=== PATIENT | female | born 1950 | race Caucasian/White ===

== ENCOUNTER 2024-04-16 14:43 | Inpatient (IN) | payer OTHER, SELFPAY ==
[2024-04-16] VITALS (64 sets, daily range): BP systolic 128–210; BP diastolic 82–158
--- NOTE | 2024-04-16 13:44 | CON.NEURO ---
Addendum entered and electronically signed by Alex Marley MD 04/16/24 17:42:
~3:20 pm after TNK patient developed facial swelling. unclear if this was due to the Labetalol or TNK.
was given solumedrol, benadryl, and pepcid
Original Note:
Neuro Assessment/Plan
Assessment
Acute stroke, suspecting left MCA territory
patient treated with TNK
Plan
Plan:
Admit to MICU for 24 hours of frequent neurochecks.�
neurochecks q1, Frequent vital signs Q15min x 2hrs, then Q30min x 6hrs, then Q1H x 16hrs until stable from the start of TNK.�
�tele, accuchecks/ISS. Repeat Head CT in 24 hours
Blood pressure goals: <180/105 and MAP 80-100� in the acute period.� If BP elevated for 2 readings, preferred agents include IV labetalol or nicardipine.� Vasopressors as necessary to maintain MAP and CPP.�
Glucose goals: Maintain euglycemia using sliding scale insulin. If glucose >180 for two consecutive readings, please use MICU insulin protocol.�
Temperature goals: maintain normothermia�
Diagnostic tests: MRI brain without contrast, ECHO with bubble.�
Consultation
Order
Date of Consultation: 04/16/24
Requesting Provider: Kelvin Good
Reason for Consult: Stroke alert
Subjective/Objective
Subjective Data
Date of Service: April 16, 2024
LKN 12:50 pm
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 She was at work, sudden onset right facial droop, aphasia. She tried to get in her car and drive home. EMS saw that she was not her usual self; they
brought her to the ED
CVA Assessment
Onset of Stroke Symptoms
Onset of symptoms known: Yes
Date of onset of symptoms: 04/16/24
Time of onset of symptoms: 12:50
NIH Stroke Score
Level of Consciousness: 0 - Alert
LOC Questions: 2-Neither correct
LOC Commands: 0-Performs both correctly
Best Horizontal Gaze: 0-Normal
Visual Rogel: 0=Normal, no visual loss
Facial Palsy: 1=Minor paralysis
Motor - Right Arm: 1=Drift < 10 seconds
Motor - Left Arm: 0=No drift 10 seconds
Motor - Right Le-Drift < 5 seconds
Motor - Left Le-No drift 5 seconds
Limb Ataxia: 0-Absent
Sensation: 0-Normal
Best Language: 2-Severe aphasia
Dysarthria: 0-Normal
Extinction and Inattention: 0-No abnormality
Total Score:: 7
Physical Exam
-
severe global aphasia, empty speech, following simple commands only
trace right sided weakness,
right nasolabial flattening
--- NOTE | 2024-04-16 13:49 | ED.CVA ---
History of Present Illness
General
Chief Complaint: CVA/TIA Symptoms
Source: patient and ambulance crew
Exam Limitations: none
Time Seen by Provider: 04/16/24 13:27
Nursing documentation reviewed up to this point in time: agreed with
Onset of Stroke Symptoms
Onset of symptoms known: Yes
Date of onset of symptoms: 04/16/24
Time of onset of symptoms: 12:45
History of Present Illness
History of Present Illness:
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
hemorrhage, blood pressure is elevated, I evaluated her her symptoms have improved but are still present looks to have a mixed aphasia facial palsy right sided weakness shared decision making with myself and on-call neurology at bedside believe she
would be a candidate for lytic therapy
Phy Exam
Physical Exam
Physical Exam:
Physical Exam
General: no apparent distress, not acutely ill
Neck: No tongue bite
Heart: s1/s2 regular rate and rhythm, no murmur. equal radial pulses.
Lungs: no acute respiratory distress. clear bilaterally
Neuro: Expressive aphasia right arm and leg with droop facial palsy
Skin: no rash
Psychiatric: Anxious but cooperative
Extremities: no edema.
Course
Orders/Labs/Results
Orders:
Orders
04/16/24 13:28
Electrocardiogram (*1) Stat
Reason for Study: Other
Other Reason for Exam: neuro symptoms
CT HEAD STROKE ALERT W/o Cont Urgent
Comment:
Reason For Exam: weanss
CT HEAD/NECK ANG STROKE ALERT Urgent
Comment:
Reason For Exam: weaknes
Bedside Glucose- Treatment ONCE
Cardiac Monitoring- Treatment ONCE
EKG- Treatment ONCE
04/16/24 13:52
Complete Blood Count/With Diff Urgent
Comprehensive Metabolic Panel Urgent
PTT Urgent
Prothrombin Time Urgent
04/16/24 13:55
NEUROLOGY CONSULT Urgent
Consulting Provider: Alex Marley
Was physician already notified: Yes
Optical Dispenser Urgent
04/16/24 13:56
Tenecteplase [Tnkase] 20 mg Syringe [Syringe Non-Pump] 0 ml IV NOW
Provider explained risk/benefits to patient &/or caregiver?: Yes
Blood pressure: 185/105
04/16/24 13:59
Labetalol HCl [Trandate] 20 mg .ROUTE .STK-MED ONE
04/16/24 14:03
Labetalol HCl [Trandate] 20 mg IV NOW STA
04/16/24 14:07
Admit/Transfer Patient As Directed
Co-Sign Provider:
Level of Care: Inpatient admission
Assign to:: ICU
Physician / Group: Jamar Ibrahim
Diagnosis: CVA
Reason for Hospitalization: CVA
Expected length of stay greater than two midnights?: Yes
ELOS- Estimated Length of Stay in days: 3
I certify the patient meets the requirements for IP care: Yes
Code Status As Directed
Resuscitation Status: Full Code
04/16/24 Dinner
NPO
Reason for opting out of Watch Inspector order writing: Provider Decision
Allow oral meds: No
Allow clear liquids: No
Abnormal Lab Results
04/16/24 04/16/24
13:52 13:54
RBC 3.73 L 10^6/uL
(4.20-5.40)
Hgb 11.4 L g/dL
(12.0-16.0)
Hct 33.6 L %
(37.0-47.0)
Absolute Monos (auto) 0.7 H 10^3/uL
(0.1-0.6)
POC Glucose 112 H mg/dl
(70-99)
04/16/24 13:52
Vital Signs
Initial and Last Documented VS:
Initial Vital Signs
Pulse Resp BP Pulse Ox
106 20 185/105 97
04/16/24 13:30 04/16/24 13:30 04/16/24 13:30 04/16/24 13:30
Last Documented Vital Signs
Temp Pulse Resp BP Pulse Ox
98.0 F 78 18 179/82 94
04/16/24 14:02 04/16/24 14:14 04/16/24 14:14 04/16/24 14:14 04/16/24 14:14
MDM/Problems Addressed
Differential Diagnosis Includes:
CVA TIA seizure with Boo's paralysis intracerebral hemorrhage hypertensive urgency
MDM/Problems Addressed:
Right-sided weakness slurred
*Radiology
Radiology exam reviewed: radiology read reviewed
*Pulse Oximetry
Patient hypoxic: no
*EKG
Interpreted by ED Provider?: Yes
Interpretation: normal
Comparison EKG: no comparison EKG present
Heart Rate: 78
Rate: normal
Rhythm: sinus
Ischemia: non-specific ST changes
*Health Care Analyst Interpretation
Rate: normal
Interpretation: normal
Heart Rate: 78
Rhythm: sinus
*Critical Care Note
Total Time (30-74mins, 75-104mins- exclusive of procedures): 32
Update Note
Update Note:
CRITICAL CARE STATEMENT: A total of 32 minutes of critical care time was provided for this patient. This includes management of unstable vital signs, evaluation of the patient at bedside, reviewing the patient's pertinent medical records discussion
with EMS providers and patient's family in addition to discussion with consultants, review of old EKGs and review of pertinent medical records. This time with separate from time utilized to perform the aforementioned documented procedures
ED Attending Note
-
Portions of this chart may have been created with voice recognition software.� Occasional wrong word or��sound alike� substitutions may have occurred due to the inherent limitations of voice recognition software.
Discharge Plan
Departure
Patient Disposition: Admit
Date of Disposition: 04/16/24
Time of Disposition: 14:21
Admit to: ICU
Presentation/result/management discussed w/ accepting MD/DO: Hospitalist
Patient with high blood pressure during this ER visit?: Yes
Condition: Fair
Discharge Problem:
Acute cerebrovascular accident (CVA)
Prescriptions:
No Action
lisinopril 20 mg Tablet
20 mg PO DAILY
naproxen sodium [Aleve] 220 mg Tablet
220 mg PO BIDPRN PRN (Reason: mildpain)
Interventions
Interventions:
*Risk Screen - Suicide Last Done: 04/16/24 13:30
*General Assessment Last Done: 04/16/24 13:30
*ED COVID-19 Vaccine History Last Done: 04/16/24 13:30
ED- Pulmonary Assessment Last Done: 04/16/24 14:09
ED- Neurological Assessment Last Done: 04/16/24 13:56
ED- Cardiac Assessment Last Done: 04/16/24 14:09
ED Swallowing Screen Last Done: 04/16/24 14:09
Discharge Date and Time
Print Language: MONGOLIAN
--- NOTE | 2024-04-16 13:59 | PHANOTE ---
Addendum entered by Cindy Pope 04/16/24 15:12:
patient confused at this time, nurse found medication in purse while trying to find emergency contact information,, id meds in [place]
Original Note:
med rec note- called family provided by patient job as emergency contact number tony de los santos at [phone] but no answer
[2024-04-16 14:00] LABS: Glucose - Point of Care 112 mg/dl (70-99)
[2024-04-16] MEDS: TRANDATE 20 MG IV (14:04)
[2024-04-16] MEDS: TNKASE 4 MG IV (14:06)
[2024-04-16 14:08] LABS: % Basophils 0.7 % (0-2); % Eosinophils 1.6 % (0-6); % Immature Granulocytes 0.5 % (0-0.5); % Lymphocytes 35.4 % (20.5-51.1); % Monocytes 8.7 % (1.7-9.3); % Neutrophils 53.1 % (42.2-75.2); Absolute Basophils 0.1 10^3/uL (0-0.2); Absolute Eosinophils 0.1 10^3/uL (0-0.7); Absolute Lymphocytes 2.7 10^3/uL (1.2-3.4); Absolute Monocytes 0.7 10^3/uL (0.1-0.6); Absolute Neutrophils 4.1 10^3/uL (1.4-6.5); Hematocrit 33.6 % (37.0-47.0); Hemoglobin 11.4 g/dL (12.0-16.0); Mean Corp Hgb Conc. 33.9 g/dL (33.0-37.0); Mean Corpuscular Hgb 30.6 pg (27.0-31.0); Mean Corpuscular Volume 90.1 fL (81.0-99.0); Mean Platelet Volume 9.7 fL (7.4-10.4); Nucleated Red Blood Cells % 0 %; Platelet Count 257 10^3/uL (130-400); Red Blood Cell Count 3.73 10^6/uL (4.20-5.40); Red Cell Dist. Width 14.5 % (11.5-14.5); White Blood Cell Count 7.6 10^3/uL (4.8-10.8)
[2024-04-16 14:20] LABS: APTT 27.3 Sec (23.4-35.0); INR 0.96; PT 13.3 Sec (11.4-14.6)
[2024-04-16 14:23] LABS: ALT (SGPT) 22 U/L (0-35); AST (SGOT) 29 U/L (14-36); Albumin 3.4 g/dl (3.5-5.0); Alkaline Phosphatase 272 U/L (38-126); Blood Urea Nitrogen 16 mg/dl (7-17); Calcium 9.5 mg/dl (8.4-10.2); Carbon Dioxide 34 mmol/L (22-30); Chloride 97 mmol/L (98-107); Glucose 115 mg/dl (70-99); Potassium 2.6 mmol/L (3.5-5.1); Sodium 136 mmol/L (135-145); Total Bilirubin 0.7 mg/dl (0.2-1.3); Total Protein 5.7 g/dl (6.3-8.2); eGFR > 60.00
--- NOTE | 2024-04-16 14:32 | CON.INTV ---
Consultation
Consultation Request
Date/Time Consultation Requested: 2 PM
Date/Time Consultation Performed: 2:10PM
Medical History
-
Chief Complaint: Aphasia/right-sided weakness
History of Present Illness:
Patient is a 73-year-old female with no known past medical history who presents to [facility] with aphasia and right-sided weakness. She was brought in by EMS within 30 minutes of symptoms onset by coworker alert. She underwent CT scan
urgently which showed no bleed or hemorrhage. CTA showed no high-grade stenosis, but did show in the left lower neck at the junction with the upper chest some mixed air and soft tissue density�almost certainly representing esophageal diverticulum.
Blood pressure remained elevated-systolics in 190s. Patient was started on TNK in hospital. In conversation, patient is teary and scared. She states that she does not feel any weakness on either side but responded to many questions with 'I do not
know'.
Patient is a poor historian, unclear if due to anxiety of being in the hospital versus symptoms from potential stroke. She is having some word finding difficulty. She states she does not remember the last time she went to a doctor. In her purse,
lisinopril and Aleve were found, but she states she does not take any medications.
Past Medical History
Past Medical History: Other (Unknown)
Past Surgical History: Other (Unknown)
Social History
Tobacco: Non-smoker
Alcohol: None
Living: Alone
Employment: Employed
Family History
Family History: Other (Unable to answer questions)
Allergies / Home Medications
Allergies
Allergy/AdvReac Type Severity Reaction Status Date / Time
No Known Allergies Allergy Unverified 04/16/24 13:56
Home Medications
�Medication �Instructions �Recorded �Confirmed �Last Taken �Type
lisinopril 20 mg tablet 20 mg PO DAILY 04/16/24 04/16/24 Unknown History
naproxen sodium 220 mg tablet 220 mg PO BIDPRN PRN mildpain 04/16/24 04/16/24 Unknown History
(Aleve)
Review of Systems
-
History Source: Patient
All other systems: Negative unless noted
Neuro: Other (Confused)
Vitals / Labs / Diagnostic Testing
Vital Signs
Temp Pulse Resp BP Pulse Ox
98.0 F 78 18 179/82 94
04/16/24 14:02 04/16/24 14:14 04/16/24 14:14 04/16/24 14:14 04/16/24 14:14
Lab Data
04/16/24 13:52
04/16/24 13:52
Laboratory Results
04/16/24
13:52
PT 13.3
INR 0.96
APTT 27.3
Diagnostic Testing:
Physical Exam
-
HEENT: Normocephalic and Anicteric
Respiratory: Clear
GI: Soft
Neurology: Awake
Skin: Warm and Dry
Exam:
Neuro�CN I through XII intact. Strength equal bilaterally. Pupils equal and reactive bilaterally.
Assessment
-
73-year-old female with no past medical history being evaluated for suspected stroke. Patient started on TNK.
Last 24 hours�
� Admit to ICU for monitoring
� TNK initiated within 30�60 minutes of symptoms onset
-Patient significantly confused and unable to answer most questions. Word finding difficulty at times. Teary at baseline
�Hemoglobin stable at 11.4, platelets 257. White blood cell count 7.6.
� Sodium 136. Potassium 2.6. BUN 16. Creatinine 0.8.
#Acute CVA
Admit to ICU
Patient started on TNK in ED
Continue neurochecks every hour
Monitor blood pressure�goal<180/105.
Start Cardene drip.
Repeat head CT at 8 PM
Speech, PT, OT for further evaluation
Neuro on board, appreciate input
#Hypokalemia
Potassium 2.6 at time of admission
Replete as needed. Goal above 4
#Hypomagnesemia
Magnesium 1.4 at time of admission
Replete as needed. Goal above 2
#Bleeding left nipple
Potentially secondary to mechanical trauma
Patient does not recall date of last mammogram
Continue to monitor, if continue to bleed, consult CREDIT UNION FIELD EXAMINER
#Esophageal diverticulum
Consider further imaging, including barium study.
DVT Prophylaxis- SCD/Full code
Data Reviewed
-
CT Scan: Report reviewed by me and Discussed with Physician
--- NOTE | 2024-04-16 14:54 | HPS.HSE ---
Addendum entered and electronically signed by Jamar Ibrahim MD 04/16/24 23:10:
Attending Addendum-
I performed a history and physical exam of the patient and discussed his management with the resident. I reviewed the resident's note and agree with the documented findings and plan of care CC/HPI- Patient is a poor historian. Per tien patient
had aphasia facial assymetry and right sided weakness. 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 911 was called and immediately brought to . Withing 30-45 minutes of sxs TNK administered. Patient seen in ICU post TNK. Patient has no complaints. Not
really following commands. Incomplete speech. No making sense. No complaints. Was noted to have facial swelling and rash. Denies itching. Full 12 point ROS reviewed and negative except as documented Exam- vitals reviewed in EMR GEN-NAD HEENT right
sided facial swelling heart RRR lungs clear Abd soft LE no edema Neuro expressive apasia right side facial droop MS 5/5 not following commands well. PEERLA AAO x 1
Plan:
# Acute CVA likely MCA territory
- admit to ICU
- head CT and CTA - no acute abnormalities
- s/p TNK 04/16
- cont neuro checks per protocol
- given labetalol in ED due to elevated BP
- maintain BP < 185/110 prefer labetalol or nicardipine
- check MRI/ECHO
- appreciate neuro input
- PT/OT/Speech eval
# Facial Swelling
- from labetalol vs TNK
- Solumedrol/Pepcid/Benadryl
- monitor
# Severe Hypokalemia
- could be contributing to sxs
- replete aggressively
- check mag
- repeat in am
# Hypomag
- replete
- repeat in am
# Left Breast Mass and bleeding
- patient states she has had a mammogram in the past
- will need follow up as OP
# HTN
- hold lisinopril
- allow permissive HTN
- use nicardipine if >185/110
DVTp - hold due to TNK, start SCDs
CC Note
Due to a high probability of clinically significant, life-threatening deterioration, the patient required a high level of preparedness to intervene emergently. I personally spent this critical care time directly and personally managing the patient.
This critical care time included obtaining a history; examining the patient; ordering and review of studies and STAT labs; arranging urgent treatment with development of a management plan; evaluation of patient's response to treatment; reassessment;
and, discussions with other providers.
This critical care time was performed to assess and manage the high probability of imminent, life-threatening deterioration that could result in multi-organ failure. It was exclusive of separately billable procedures and treating other patients and
teaching time. Total critical care time: Approximately 35 minutes
Original Note:
Family Physician
-
Family Physician: INTERVIEWE UNKNOWN - PT NOT
Chief Complaint
-
Right sided weakness
History of Present Illness
The patient is a 73 year old female with an on the known past medical history of hypertension who presented to the ER with a prehospital stroke alert. . She was brought to the hospital within 30 minutes following having stoke symptoms including
aphasia, fascial asymmetry and right sided weakness. At ER admission, she was afebrile, tachycardic with HR 106, RR 20, elevated BP to 185/105, oxygen saturation 97%. Her lab results were significant for low potassium level to 2.6, low magnesium
level to 1.4. Her EKG showed sinus tachycardia. The patient was obtained head CT and head/Neck CT which was not significant for any intracranial abnormality. She was seen by neurology and was started on TNK treatment with concern of acute
ischemic left MCA stroke. She was also given 20 mg IV labetalol at ER before receiving TNK. The patient was transferred to ICU for close monitoring. After arriving ICU, some facial swelling and rashes on the chest noticed which considered as an
allergic reaction to TNK treatment. Some blood was seen on her mouth lips and tongue and a superficial fissura on left lower lip. Additionally on exam some bleeding and a mass was found on her left breast.
Medical History
Past Medical History
Past Medical History: Reports HTN and Other (Patient was found some confused and had difficulty to memorize. She denied any history of chronic disease except hypertension, denies any cancer history)
Past Surgical History: Reports Other (Patient was not able to give her past surgical history due to her confusion)
Social History
Tobacco: Non-smoker
Alcohol: None
Drug: None
Living: Alone
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
Family History
Family History: Other (Father has esophageal cancer, mother has dementia and Parkinson and the type of cancer)
Allergies / Home Medications
Allergies reflects when Allergies were last updated in [employer].
Home Medications with original date entered in [employer]
Allergy/Medication List:
No known allergies
Review of Systems
-
Unable to obtain full review of systems at this time due to: Other (Patient's confusion)
History Source: Patient, Transfer Record and Physician
Physical Exam
Vital Signs
Vital Signs
Temp Pulse Resp BP Pulse Ox
98.0 F 81 18 174/107 97
04/16/24 14:02 04/16/24 14:30 04/16/24 14:30 04/16/24 14:30 04/16/24 14:30
Physical Exam
General: Well Developed and Well Nourished
HEENT: NormoCephalic and Anicteric
Respiratory: Clear
Cardiac: S1/S2, Regular Rhythm and Tachycardia
Breast: Mass/Lump (And mass palpated on left breast under the nipple-some blood on the nipple)
GI: Soft, Non Tender and Non Distended
Genito-urinary: Deferred by me
Musculoskeletal: No Clubbing and No Cyanosis
Skin: Warm
Neuro: Awake and Oriented (Oriented to place and herself, not oriented to time-had difficulty to memorize her kids name)
Psych: Confused
Laboratory Results
-
04/16/24 13:52
04/16/24:52
Laboratory Results
PT 13.3 Sec (11.4-14.6) 04/16/24 13:
INR 0.96 04/16/24:52
APTT 27.3 Sec (23.4-35.0) 04/16/24:
Total Bilirubin 0.7 mg/dl (0.2-1.3) 04/16/24:
AST 29 U/L (14-36) 04/16/24:
ALT 22 U/L (0-35) 04/16/24:
Alkaline Phosphatase 272 U/L (38-126) H 04/16/24:52
Impression/Plan
-
IMPRESSION:
Ms. Gore is a 73 years old female who was brought to the hospital after having stroke symptoms including facial asymmetry, aphasia, and right-sided weakness. Her head/neck CT was not significant for any acute intracranial abnormality. The
patient was started on TNK protocol by neurology team. Subsequently, it was seen patient developed some swelling on her face and some rash on her back which considered an allergy secondary to TNK or labetalol treatment. Since the admission, the
patient was found confused and was not able to give any details about her medical history. It was attempted to call her daughter and left a voice message. Following her son Shon was called and informed about her mother's condition. Her son
stated that her mother was not having any follow-up with any physician for years and he only remembered her mother has hypertension but not sure if she was taking any medication or not.
PLAN:
CVA likely left MCA stroke
Facial swelling significant on the right side likely allergic reaction possibly to TNK treatment or labetalol
Hypokalemia
Breast mass
Anemia
Hypomagnesemia
Possible esophageal diverticulum
#CVA likely left MCA stroke
-Received stroke protocol with TNK
-Admitted to the ICU for close monitoring
-Neurology on board
-Permissive hypertension recommended by neurology
-Head CT planning tomorrow a.m.
-MRI head was ordered-waiting to obtain
-Speech therapy evaluation/PT/OT evaluation
#Facial swelling
-Considered secondary to thank your labetalol treatment
-Was given famotidine, steroid, Benadryl
-Follow face/lip swelling, shortness of breath, rashes on skin
# Hypokalemia
-Potassium found 2.6
-Symptoms can be related to hypokalemic periodic paralysis
-Consider for paraneoplastic hyperaldosteronism due breast mass
-Replete potassium with a goal to keep>4
-RAA and cortisol ordered for a.m.
# Hypomagnesemia
-Replete as needed
#Breast mass
-Some blood seen on the left nipple likely due to trauma
-Mass was palpated under nipple
-Patient's son reports her mother does not see any physician for a long time
-Patient denied any history of breast cancer
DVT Prophylaxis- SCD/Full code
--- NOTE | 2024-04-16 15:00 | PTCARENOTE ---
Received patient from ER. Handoff completed at bedside. NIHSS and neuro exam as documented in TNK worklist. NIHSS 4, patient is aphasic. can move all extremities. She is on room air, lungs clear. sinus rhythm on monitor. patient is anxious,
she is picking at blood pressure cuff, ripped off pulse ox. will reinforce to patient calmly why we are doing certain tests/procedures. She is NPO, blood noted in mouth/lip has small abrasion. Patient asked for bathroom, wanted to get OOB.
bedpan given. Skin as documented in worklist. will review orders, ongoing neuro assessments per protocol.
[2024-04-16 15:11] LABS: Magnesium 1.4 mg/dl (1.6-2.3); Phosphorus 3.3 mg/dl (2.5-4.5)
--- NOTE | 2024-04-16 15:30 | PTCARENOTE ---
Dr. Ibrahim at bedside, called card doffer to bedside as well as patient started to develop swelling under eyes and on right side of mouth. Med event entered. benedryl, pepcid and steroid given as documented in APR.
[2024-04-16] MEDS: PEPCID 20 MG IV ×2 (15:44→21:24)
[2024-04-16] MEDS: BENADRYL 50 MG IV (15:44)
[2024-04-16] MEDS: NSS (PRESERVATIVE FREE) 8 ML IV ×2 (15:44→21:24)
[2024-04-16] MEDS: SOLU-MEDROL PF 40 MG IV ×2 (15:47→22:55)
[2024-04-16] MEDS: CARDENE 200 IV (15:54)
[2024-04-16] MEDS: KCL 270 MEQ IV ×2 (16:18→19:54)
[2024-04-16] MEDS: MAGNESIUM SULFATE 50 IV (17:00)
--- NOTE | 2024-04-16 18:19 | PTCARENOTE ---
Patient can speak better, but has refused CXR, is now refusing follow up CT scan and subsequent MRI.
--- NOTE | 2024-04-16 19:47 | W.PN.UPDATE ---
Update Note
Progress Note Update
04/16/24 at 1930
Patient stated she was declining further imaging testing including Ctscan of the head, MRI of the brain, and chest xray. Reviewed risk and benefits of neuroimaging and it is necessary to repeat scans post TNK. Stated to the patient these tests are
not an option to decline especially the repeat head Ctscan because of risk for intracranial hemorrhage after TNK. Patient verbalized understanding. Updated Dr. Brantley, legal coordinator, agrees testing is necessary and patient does not have the option
to decline neuroimaging after TNK. Concern patient maybe confused and/or have poor insight into disease process of stroke, therefore unable to decline testing at this time. Patient was taken down to Ctscan by nurse.
2029- Patient's daughter Mayra Gore, called for information and update, all questions answered.
--- NOTE | 2024-04-16 20:00 | PTCARENOTE ---
On assessment pt NIH at change of shift was 1, pt AAOx3 but very forgetful, denies pain and SOB at this time, cardene gtt infusing per orders, CT ordered as repeat for facial swelling, family was notified and at bedside, MRI due tomorrow, bed alarm
on and call sanchez in reach
[2024-04-16] MEDS: BENADRYL 25 MG IV (23:01)
--- NOTE | 2024-04-16 23:28 | PTCARENOTE ---
pt restless in bed, pulled out IV, no bleeding noted, bed alarm on and call sanchez in reach
[2024-04-17] VITALS (32 sets, daily range): BP systolic 136–186; BP diastolic 67–110
--- NOTE | 2024-04-17 01:15 | PTCARENOTE ---
pt refusing SCDs, taking off gown and trying to get OOB, WEAVE DEFECT CHARTING CLERK made aware, bed alarm on and call sanchez in reach
--- NOTE | 2024-04-17 03:02 | PTCARENOTE ---
Pt consistently refusing SCDs, pulse ox and attempting to get OOB multiple times, pt educated on importance but continues to refuse, pt AAOx3 but frequently forgetful and agitated at times with Q1H assessments, bed alarm remains on and call sanchez in
reach
--- NOTE | 2024-04-17 04:11 | PTCARENOTE ---
pt refusing temps and refusing MRI in the AM
--- NOTE | 2024-04-17 07:28 | W.PN.HOSP.TC ---
Addendum entered and electronically signed by Jamar Ibrahim MD 04/17/24 21:56:
Attending Addendum-I saw and evaluated the patient. I reviewed the resident�s note and agree with findings and plan as documented in the resident�s note. Sub: Not following commands. Incomplete broken speech. Not making sense. patient agitated with
worsening aphasia STROKE alert called while in room and sent for stat CT. D/W Neuro Full 12 point ROS unable to be obtained due to MS Exam- vitals reviewed in EMR GEN-agitated HEENT no facial swelling heart RRR lungs clear Abd soft LE no edema Neuro
expressive aphasia not following commands
Plan:
# Possible Acute CVA / CIMS
- continue care in ICU
- stroke alert called 04/17
- stat ct 04/17- no acute IC abnormalities
- agitated- give ativan x 1
- head CT and CTA 04/16 - no acute abnormalities
- s/p TNK 04/16
- cont neuro checks per protocol
- given labetalol in ED due to elevated BP
- maintain BP < 180/100
- cont nicardipine
- MRI-P
- Echo-Normal left ventricular size, wall thickness and systolic function. No regional wall motion abnormalities are seen. LV ejection fraction is 55-60% by visual assessment.
- appreciate neuro input
- PT/OT/Speech eval
# Facial Swelling
- resolved
- from labetalol vs TNK
- Solumedrol/Pepcid/Benadryl x 1
# Hypokalemia
- replete aggressively
- repeat in am
# Leukocytosis
-likely reactive
-con to trend
# Hypomagnesia
- repleted
- repeat in am
# Left Breast Mass and bleeding
- patient states she has had a mammogram in the past
- will need follow up as OP
# HTN
- hold lisinopril
- allow permissive HTN
- use nicardipine if >180/110
DVTp - start Lovenox as head ct neg for bleed
ACP
Patient unable to consent to discuss, son called, time spent explanation of advance directives, changes in health status, patient�s health care wishes if the patient becomes unable to make health decisions, goals of care, code status, and prognosis-
son states mother would want to be DNR- 16 minutes
CC Note
Due to a high probability of clinically significant, life-threatening deterioration, the patient required a high level of preparedness to intervene emergently. I personally spent this critical care time directly and personally managing the patient.
This critical care time included obtaining a history; examining the patient; ordering and review of studies and STAT labs; arranging urgent treatment with development of a management plan; evaluation of patient's response to treatment; reassessment;
and, discussions with other providers.
This critical care time was performed to assess and manage the high probability of imminent, life-threatening deterioration that could result in multi-organ failure. It was exclusive of separately billable procedures and treating other patients and
teaching time. Total time documented is also exclusive of any additional time listed that was spent in advance care planning discussion
Total critical care time: Approximately 38 minutes
Original Note:
Today's Communication/Plan
-
-Follow BMP, Mg
-Neuroc-hecks per protocol
Assessment / Plan
Assessment / Plan
73 year old female was admitted to the hospital with stroke prealert on 04/16/24. She was assessed by Neurology and received TNK treatment.
Impression/Plan
Acute CVA likely left MCA stroke
Acute mental status change
Facial swelling significant on the right side likely allergic reaction possibly to TNK treatment or labetalol
Hypokalemia
Breast mass
Anemia
Hypomagnesemia
Possible esophageal diverticulum
#Acute CVA likely left MCA stroke
-Received stroke protocol with TNK at ED admission
-Admitted to the ICU for close monitoring
-Neurology on board- neuro checks per protocol
-Permissive hypertension recommended by neurology
-Can be given nicardipine with a goal to keep BP <185/110
-Head CT this am for TNK protocol: No CT evidence for acute intracranial hemorrhage.// 1.4 cm region of asymmetric low attenuation in the subcortical white matter of the right frontal lobe pittman radiata with differential diagnosis of (1)
asymmetric white matter leukoaraiosis or (2) cytotoxic edema from an acute ischemic infarct.
-MRI head was ordered-waiting to obtain
-ECHO on 04/17/24: Normal left ventricular size, wall thickness and systolic function. No regional wall motion abnormalities are seen. LV ejection fraction is 55-60% by visual assessment.
-Speech therapy evaluation/PT/OT evaluation
#Acute mental status change
-A new acute stroke alert given this am around 10. 30
-Given Ativan and Zyprexa to proceed head CT due agitation
-CT on 04/17/24 at10.33 am: No acute intracranial pathology. Mild atrophy. Stable.Mild periventricular small vessel ischemic disease. Stable
-Needed placed in4 points restraints due agitation
-Neuro check per protocol
#Facial swelling
-Improved
-Considered secondary to TNK or labetalol treatment
-Was given famotidine, steroid, Benadryl
-Follow face/lip swelling, shortness of breath -RR -O2 SAT , rashes
# Hypokalemia
-Potassium found 2.6 at admission
-Was repleted and follow results are still pending
-Symptoms can be related to hypokalemic periodic paralysis
-Consider for paraneoplastic hyperaldosteronism due breast mass
-Replete potassium with a goal to keep>4
-RAA and cortisol pending
# Hypomagnesemia
-Repleted
-Check Mg daily
-Replete as needed
#Breast mass
-Some blood seen on the left nipple likely due to trauma
-Mass was palpated under nipple
-Patient's son reports her mother does not see any physician for a long time
-Patient denied any history of breast cancer
DVT Prophylaxis- SCD
Code: Full code
Anticipated Discharge: 24 - 48 hours
Subjective/Interval History
-
Date of Service: April 17, 2024
08.00 am Patient was seen in her bed having aphasia with understanding. She is oriented but had some difficulty to follow the commands. But she was found less confused than yesterday. She refused having a control head CT, but accepted after the
reason explained to her.
10.10 am Patient was given a new stroke alert due getting more confused and some agitated. A head CT was ordered due her sudden mental status change. Following her son called by me to discuss patient`s code status and he confirmed willing her
mother to be on full code.
Objective Data
-
Labs:
Laboratory Results
04/17/24 04/17/24 04/17/24
00:09 06:00 14:00
WBC Cancelled Pending
Hgb Cancelled Pending
Hct Cancelled Pending
Plt Count Cancelled Pending
PT Cancelled Pending
INR Cancelled Pending
APTT Cancelled Pending
Sodium Cancelled Cancelled Pending
Potassium Cancelled Cancelled Pending
Chloride Cancelled Cancelled Pending
Carbon Dioxide Cancelled Cancelled Pending
BUN Cancelled Cancelled Pending
Creatinine Cancelled Cancelled Pending
Glucose Cancelled Cancelled Pending
Calcium Cancelled Cancelled Pending
Vital Signs:
Vital Signs
Temp Pulse Resp BP Pulse Ox
98.3 F 108 25 162/100 93
04/17/24 05:25 04/17/24 06:15 04/17/24 06:15 04/17/24 06:06 04/17/24 05:25
I&O
04/16/24 04/17/24 04/18/24
06:59 06:59 06:59
Intake Total 602.5 / 602.5
Output Total 900 / 900
Balance -297.5 / -297.5
Review of Systems
-
History Source: Patient, Family and Records
All other systems: Not reviewed unless documented (The patient was found confused, she denied shortness of breath, chest and abdominal pain. )
Physical Exam
-
General: Well Developed, Well Nourished, No Apparent Distress, Comfortable and Other (some confusion)
HEENT: Normocephalic and Atraumatic
Respiratory: Clear to Auscultation
Cardiac: Regular Rhythm, S1/S2 and Tachycardic
Breast: Mass/Lump (on left breast)
GI: Soft, Nontender and Nondistended
Musculoskeletal: No Clubbing, No Cyanosis and No Edema
Skin: Warm
Neuro: Awake, Alert, Oriented (oriented to place and herself, not oriented to time ) and Other (Patient`s examination was limited due her aphasia due difficulty with understanding. She had difficulty to follow 2 words commands. / Muscle strength
grossly found intact in the morning at 8.00 am )
Psych: Confused and Agitated
--- NOTE | 2024-04-17 08:00 | PTCARENOTE ---
recd 0715 handoff at bedside with previous shift. See NIHSS, pt is interactive and cooperative. updated on plan. occas with nonsense words that don't make sense. unable to identify a few objects but very responsive with others. able to read
most words on NIH. see documentation. awaiting plan for day. breast dressing with small amount of drainage, no increase. tender.
[2024-04-17] MEDS: NSS (PRESERVATIVE FREE) 8 ML IV (08:08)
[2024-04-17] MEDS: BENADRYL 25 MG IV (08:08)
[2024-04-17] MEDS: PEPCID 20 MG IV (08:08)
[2024-04-17] MEDS: SOLU-MEDROL PF 40 MG IV (08:09)
--- NOTE | 2024-04-17 08:24 | W.PN.INTV ---
Addendum entered and electronically signed by Donald Brantley MD 04/17/24 18:05:
MRI brain reviewed showing no convincing restricted diffusion to suggest acute infarct. There is mild chronic microvascular white matter ischemic disease. MRI brain results discussed with neurology, Dr. Marley, and patient is okay to start ASA +
chemical DVT prophylaxis. She has become more agitated as the day has progressed and Precedex drip now started. 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 Given her agitation,
she may need to be sedated for both procedures.
Original Note:
Today's Communication / Plan
Recommendations
Stat CT head for acute change in mental status
Assessment
-
73-year-old female with no past medical history being evaluated for suspected stroke. Patient started on TNK.
Last 24 hours�
� Admit to ICU for monitoring
� TNK initiated within 30�60 minutes of symptoms onset on 04/16
-Acute mental status change at 1030 this morning. Stroke protocol initiated, stat CT ordered�completed around 11 AM.
�Hemoglobin stable at 11.4, platelets 257. White blood cell count 7.6.
� Sodium 136. Potassium 2.6. BUN 16. Creatinine 0.8.
#Acute CVA
Admit to ICU
Patient started on TNK in ED
Continue neurochecks every hour
Monitor blood pressure�goal<180/105.
Cardene drip restarted this morning.
Repeat head CT on 04/[address] head ordered for acute change in mental status. No acute changes. Aspect score 10
Continue PT/OT rehabilitation
Neuro on board, appreciate input
#Acute change in mental status/combative
Patient currently in 4 point restraints
Ativan given for support for CT head
Zyprexa given for support for CT head
Consider administration of Ativan and Zyprexa for MRI of brain
Continue to monitor mental status
#Hypokalemia
Potassium 2.6 at time of admission
Replete as needed. Goal above 4
#Hypomagnesemia
Magnesium 1.4 at time of admission
Replete as needed. Goal above 2
#Bleeding left nipple
Potentially secondary to mechanical trauma. Continue to monitor, currently not bleeding.
Patient does not recall date of last mammogram.
Continue to monitor, if continue to bleed, consult HEAT AND FROST INSULATOR HELPER
#Esophageal diverticulum
Consider further imaging, including barium study.
DVT Prophylaxis- SCD/Full code
------
CT head 04/16�
IMPRESSION:
1. No CT evidence for acute intracranial hemorrhage.
2. 1.4 cm region of asymmetric low attenuation in the subcortical white matter of the right frontal lobe pittman radiata. Diagnostic possibilities are (1) asymmetric white matter leukoaraiosis or (2) cytotoxic edema from an acute ischemic infarct.
3. Moderate periventricular white matter leukoaraiosis in both frontal lobes.
4. Mild diffuse cerebral and cerebellar volume loss.
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
Subjective Dataa
Subjective Data
Date of Service:
Date of Service: April 17, 2024
At 9 AM�overnight patient reports that she feels significantly better. She is less confused. She states that she understands that her how her disease process works and is willing to work with nursing and hospital staff to move towards her. She
initially refused head CT yesterday evening, but after explanation she was amenable. She states she has not had any more bleeding from the left nipple. She reports no headaches, nausea, vomiting, chest pain, abdominal pain or numbness and tingling.
At around 10:30 AM, patient acutely had a change in mental status. She was no oriented or able to answer any questions. All answers to questions asked were gibberish or nonsensical. Patient became combative and aggressive and was given Ativan and
Zyprexa. Stat CT head was ordered and stroke protocol was initiated. Hospitalist team contacted patient daughter who confirmed patient is full code.
Chief Complaint: Meal Miller Follow Up
Subjective:
Past medical history�unknown
Objective Data
Data Reviewed
Vital Signs / I&O / Oxygen:
Vital Signs
Temp Pulse Resp BP Pulse Ox
98.3 F 108 25 162/100 93
04/17/24 05:25 04/17/24 06:15 04/17/24 06:15 04/17/24 06:06 04/17/24 05:25
Intake and Output
04/16/24 04/17/24 04/18/24
06:59 06:59 06:59
Intake Total 602.5 / 602.5
Output Total 900 / 900
Balance -297.5 / -297.5
SaO2 93
Physical Exam
General: Comfortable
HEENT: Normocephalic and Anicteric
Cardiovascular: S1-S2 and Regular Rhythm
Respiratory: Clear
GI: Soft
Neurology: AO x 3, No Motor Deficits and Other (Cranial nerves intact)
Skin: Warm and Dry
Labs/Micro/Reports
Laboratory Results
04/16/24 04/17/24
13:52 06:00
PT 13.3 Cancelled
INR 0.96 Cancelled
APTT 27.3 Cancelled
--- NOTE | 2024-04-17 10:22 | WOUNDNOTE ---
WO RN note: Nursing placed a WO RN consult last evening for facial swelling and L breast bleeding. Hospitalist documented L breast lump with nipple bleeding. Patient instructed to make appointment with a delimber operator. Patient refused this health science writer
to perform a skin check except she did allow this health science writer to check her heels. Skin on heels intact without redness. Instructed patient pressure injury prevention measures. Patient moves self in bed. L facial swelling improved as per CARLITA Lawrence. Melinda
aware patient refused [facility] RN consult. Will sign off d/t patient's refusal and also facial swelling and a breast lump is not for a wound nurse to manage.
[2024-04-17] MEDS: ATIVAN 2 MG IV (10:45)
[2024-04-17 10:48] LABS: Glucose - Point of Care 227 mg/dl (70-99)
--- NOTE | 2024-04-17 10:59 | PTCARENOTE ---
1030 sudden neuro change, agitated, out of control, garbled/nonsensical speech. uncooperative with neuro assessment, see [facility], Multiple MDs in room, Neuro present, to CT, agitation worsened, unable to perform CT. Back to ICU. see VS. Off cardene
at present, 160/91. oxygen applied, increased agitation. presently in room for safety, redirection.
[2024-04-17] MEDS: STERILE WATER FOR INJECTION 2.1 ML IM (11:15)
[2024-04-17] MEDS: ZYPREXA 10 MG IM (11:17)
[2024-04-17] MEDS: NSS (PRESERVATIVE FREE) 1 ML IV (11:42)
--- NOTE | 2024-04-17 11:43 | PTCARENOTE ---
calmer after zyprexa, presently requiring nasal cannula 5l with supplemental NRB, sats 98% but tolerating, BP noted off cardene, resting, occas restless at intervals. echo in progress.
--- NOTE | 2024-04-17 12:57 | PTCARENOTE ---
pt remains somnolent at times, RUCKER strong, uppers, lowers occas kicking or restless. not following commands as sedation remains on board given earlier from CT. MRI pending, PRN meds available if needed, awaiting time to go to MRI. At this time,
pt opens eyes, restless but not interactive or verbal beyond single word exclamations.
--- NOTE | 2024-04-17 13:00 | PTCARENOTE ---
1:1 sitter arrived approx 1130 and remains bedside, pt restless, pulls at restraints at times, single IV site maintained.
[2024-04-17] MEDS: VERSED 2 MG IV (13:30)
--- NOTE | 2024-04-17 14:19 | PTCARENOTE ---
to MRI approx 1315, med with versed per order. MRI images obtained as able, pt was intermittently restless. back to ICU 1410, family bedside. presently resting at times.
--- NOTE | 2024-04-17 15:00 | PTCARENOTE ---
New IV site R upper arm ultrasound guided 20 P 2 inch. labs sent.
[2024-04-17 15:06] LABS: Venous Blood Gas B.E. 5.4 mmol/L (-4 to +4); Venous Blood Gas HCO3 31.6 mmol/L (22-27); Venous Blood Gas O2 Sat % 93.5 %; Venous Blood Gas pCO2 51 mmHg (35-48); Venous Blood Gas pO2 65 mmHg (30-50)
[2024-04-17 15:13] LABS: APTT 24.2 Sec (23.4-35.0); INR 0.94; PT 13.1 Sec (11.4-14.6)
[2024-04-17 15:18] LABS: % Basophils 0.2 % (0-2); % Immature Granulocytes 1.1 % (0-0.5); % Lymphocytes 9.3 % (20.5-51.1); % Monocytes 2.3 % (1.7-9.3); % Neutrophils 87.1 % (42.2-75.2); Absolute Immature Granulocytes 0.1 10^3/uL (0-0.05); Absolute Lymphocytes 1.2 10^3/uL (1.2-3.4); Absolute Monocytes 0.3 10^3/uL (0.1-0.6); Absolute Neutrophils 11.2 10^3/uL (1.4-6.5); Hematocrit 41.5 % (37.0-47.0); Mean Corp Hgb Conc. 33.7 g/dL (33.0-37.0); Mean Corpuscular Hgb 30.3 pg (27.0-31.0); Mean Corpuscular Volume 89.8 fL (81.0-99.0); Mean Platelet Volume 9.6 fL (7.4-10.4); Nucleated Red Blood Cells % 0 %; Platelet Count 343 10^3/uL (130-400); Red Blood Cell Count 4.62 10^6/uL (4.20-5.40); Red Cell Dist. Width 14.8 % (11.5-14.5); White Blood Cell Count 12.8 10^3/uL (4.8-10.8)
[2024-04-17 15:23] LABS: ALT (SGPT) 26 U/L (0-35); AST (SGOT) 33 U/L (14-36); Albumin 4.7 g/dl (3.5-5.0); Alkaline Phosphatase 317 U/L (38-126); Blood Urea Nitrogen 21 mg/dl (7-17); Calcium 10.1 mg/dl (8.4-10.2); Carbon Dioxide 31 mmol/L (22-30); Chloride 97 mmol/L (98-107); Glucose 156 mg/dl (70-99); Magnesium 2.1 mg/dl (1.6-2.3); Potassium 3.3 mmol/L (3.5-5.1); Sodium 138 mmol/L (135-145); Total Bilirubin 0.9 mg/dl (0.2-1.3); Total Cholesterol 255 mg/dl (50-199); Total Protein 7.2 g/dl (6.3-8.2); Triglyceride 139 mg/dl (10-149); Very Low Density Lipoprotein 27 mg/dl (0-30); eGFR > 60.00
[2024-04-17 15:29] LABS: HDL Cholesterol 110 mg/dl; LDL Cholesterol, Calculated 118 mg/dl
--- NOTE | 2024-04-17 15:32 | CM ---
CM reviewed chart, spoke with patients son, Shon, to complete initial assessment. Patient lives independently in a two story home, five steps to enter, 14 steps to second floor, bedroom on second floor. Son denies DME, VN/SNF history. Son reports
patient does not have a PCP, unsure of pharmacy used. PT/OT consulted, will follow for all recommendations. Patient remains on restraints. CM will continue to follow for all discharge planning needs.
Plan; watch PT/OT evals for discharge recommendations
--- NOTE | 2024-04-17 15:39 | PTCARENOTE ---
resting, BP high when agitated, presently sleeping and 172/92. Ultrasound order noted, discussed with [facility], will be done tomorrow approx 1030 in department. Family updated. Labs to resident, following for further orders/plan.
[2024-04-17 15:48] LABS: Cortisol, Random 5.7 ug/dl; TSH 0.24 uIU/ml (0.47-4.68); TSH Reflex To Free T4 0.24 uIU/ml (0.47-4.68)
[2024-04-17 16:17] LABS: Free T4 1.18 ng/dl (0.78-2.19)
[2024-04-17] MEDS: PRECEDEX 100 IV (16:56)
[2024-04-17] MEDS: KCL 520 MEQ IV (17:23)
--- NOTE | 2024-04-17 18:00 | PTCARENOTE ---
no change. 1:1 sitter for safety. oral care, very uncooperative and profane. support given, unable to reason with pt or interact or explain situation. med with rectal aspirin per order and 3 assistants. Offered liquids, pt did then reply 'I'm
not interested'. positioned to R with pillow.
[2024-04-17 18:03] LABS: Urine Albumin 2+ (Neg - Trace); Urine Bilirubin Negative (Negative); Urine Character Clear (Clear); Urine Color Yellow; Urine Glucose 1+ (Negative); Urine Ketone 3+ (Negative); Urine Leukocyte Negative (Negative); Urine Nitrite Negative (Negative); Urine Occult Blood 1+ (Negative); Urine Urobilinogen Negative (Neg - 1+)
[2024-04-17 18:11] LABS: Urine Bacteria Few (Negative); Urine Red Blood Cell 0-2 /HPF (0-2); Urine White Cell 0-2 /HPF (0-5)
--- NOTE | 2024-04-17 18:18 | W.PN.NEURO.1 ---
Addendum entered and electronically signed by Alex Marley MD 04/18/24 19:13:
CSF wbc 5, glucose 79, protein 157
pending viral pcr, paraneoplastic antibodies, crypto, lyme, acid fast,
looks like autoimmune encephalitis
IVIG 30g x5 days
Original Note:
Today's Communication / Plan
-
EEG and LP tomorrow
Neuro Assessment/Plan
Assessment
initially suspected acute L MCA territory stroke
patient treated with TNK
remains globally aphasic, agitated - MRI no stroke, ?encephalitis?
Plan
EEG and LP tomorrow
Subjective/Objective
Subjective Data
Date of Service: April 17, 2024
seen this morning - patient remains severely global aphasia. was able to name a pen which she couldn't do yesterday
NIHSS 13 likely due to poor cooperation; stat head CT was unremarkable.
this afternoon had brain MRI, no stroke
very agitated, was started on precedex gtt
Objective Data
Vital Signs
Temp Pulse Resp BP Pulse Ox
36.8 C 89 25 177/96 94
04/17/24 15:42 04/17/24 17:48 04/17/24 17:48 04/17/24 17:48 04/17/24 17:48
Lab Results
04/17/24 14:51
PT 13.1 Sec (11.4-14.6) 04/17/24 14:51
INR 0.94 04/17/24 14:51
APTT 24.2 Sec (23.4-35.0) 04/17/24 14:51
Sodium 138 mmol/L (135-145) 04/17/24 14:51
Sodium Cancelled 04/17/24 14:51
Potassium 3.3 mmol/L (3.5-5.1) L D 04/17/24 14:51
Potassium Cancelled 03/13/25 14:51
BUN 21 mg/dl (7-17) H 04/17/24 14:51
BUN Cancelled 04/17/24 14:51
Glucose 156 mg/dl (70-99) H 04/17/24 14:51
Glucose Cancelled 04/17/24 14:51
Calcium 10.1 mg/dl (8.4-10.2) 04/17/24 14:51
Calcium Cancelled 04/17/24 14:51
Phosphorus 3.3 mg/dl (2.5-4.5) 04/16/24 13:52
LDL Cholesterol, Calc 118 mg/dl 04/17/24 14:51
Patient Allergies
labetalol Allergy (Verified 04/16/24 19:36)
See comments
tenecteplase Allergy (Verified 04/16/24 19:36)
See comments
[2024-04-17] MEDS: ASPIRIN 300 MG RECTAL (18:35)
--- NOTE | 2024-04-17 19:49 | PTCARENOTE ---
On assessment pt on DEX gtt, RUCKER, SR on the monitor, 4L NC 95%, st cath during the day x1, L chest dressing intact, bed alarm on
--- NOTE | 2024-04-17 20:30 | PTCARENOTE ---
With pt being sedated on DEX gtt, staff unable to complete NIH at this time, pt RUCKER, +pulses and pupils 3 and PERRLA, SHELL PLATER made aware and titrating down on sedation
[2024-04-17] MEDS: LOVENOX 40 MG SC (20:38)
[2024-04-17 21:12] LABS: Blood Urea Nitrogen 21 mg/dl (7-17); Calcium 9.8 mg/dl (8.4-10.2); Carbon Dioxide 29 mmol/L (22-30); Chloride 101 mmol/L (98-107); Glucose 158 mg/dl (70-99); Potassium 4.2 mmol/L (3.5-5.1); Sodium 138 mmol/L (135-145); eGFR > 60.00
[2024-04-18] VITALS (40 sets, daily range): BP systolic 57–191; BP diastolic 62–137
--- NOTE | 2024-04-18 00:45 | PTCARENOTE ---
Pt continues to be difficult to arouse and unable to complete NIH despite DEX gtt being off since 2199. Pt unable to follow commands but RUCKER. Pt responds to painful stimuli but does not engage with staff, pt responds clearly saying 'what?' but will
not answer any questions. MANAGER REVENUE made aware and no new orders at this time.
--- NOTE | 2024-04-18 04:26 | PTCARENOTE ---
pt became very agitated and restless around 0300, DEX gtt restarted. see worklist
[2024-04-18 05:48] LABS: Hematocrit 36.6 % (37.0-47.0); Hemoglobin 12.1 g/dL (12.0-16.0); Mean Corp Hgb Conc. 33.1 g/dL (33.0-37.0); Mean Corpuscular Hgb 30.2 pg (27.0-31.0); Mean Corpuscular Volume 91.3 fL (81.0-99.0); Mean Platelet Volume 9.9 fL (7.4-10.4); Platelet Count 338 10^3/uL (130-400); Red Blood Cell Count 4.01 10^6/uL (4.20-5.40)
[2024-04-18] MEDS: PRECEDEX 100 IV ×3 (05:48→18:57)
[2024-04-18 06:06] LABS: ALT (SGPT) 21 U/L (0-35); AST (SGOT) 28 U/L (14-36); Albumin 3.6 g/dl (3.5-5.0); Alkaline Phosphatase 256 U/L (38-126); Blood Urea Nitrogen 25 mg/dl (7-17); Calcium 9.9 mg/dl (8.4-10.2); Carbon Dioxide 32 mmol/L (22-30); Chloride 102 mmol/L (98-107); Glucose 123 mg/dl (70-99); Magnesium 2.1 mg/dl (1.6-2.3); Phosphorus 3.4 mg/dl (2.5-4.5); Potassium 3.7 mmol/L (3.5-5.1); Sodium 140 mmol/L (135-145); Total Bilirubin 0.5 mg/dl (0.2-1.3); Total Protein 5.9 g/dl (6.3-8.2); eGFR > 60.00
--- NOTE | 2024-04-18 08:19 | W.PN.INTV ---
Today's Communication / Plan
Recommendations
EEG
LP
Assessment
-
73-year-old female with no past medical history being evaluated for suspected stroke. Patient started on TNK.
Last 24 hours�
� Admit to ICU for monitoring
� TNK initiated within 30�60 minutes of symptoms onset on 04/16
-Acute mental status change at 1030 on 04/17. Patient remains confused, agitated and aggressive.
�Hemoglobin stable at 12.1, platelets 338. White blood cell count 17.
� Sodium 140. Potassium 3.7. BUN 25. Creatinine 0.8.
�Plan for EEG, breast ultrasound, LP today.
#Acute CVA
Admit to ICU
Patient started on TNK in ED
Continue neurochecks every hour
Monitor blood pressure�goal<180/105.
Precedex 0.8 started on 04/17 for agitation
Continue to remain NPO
EEG, lumbar puncture planned for today
Neuro on board, appreciate input
#Acute change in mental status/combative
Patient currently in 4 point restraints
Precedex 0.8 given for sedation and agitation control
Continue to monitor mental status
#Hypokalemia
Potassium 2.6 at time of admission
Resolved. Continue to monitor
#Hypomagnesemia
Magnesium 1.4 at time of admission
Resolved continue to monitor
#Bleeding left nipple
Potentially secondary to mechanical trauma. Continue to monitor, currently not bleeding.
Patient does not recall date of last mammogram.
Continue to monitor, if continue to bleed, consult PODIATRIC PHYSICIAN
Breast ultrasound refused by patient, consider repeating
#Esophageal diverticulum
Consider further imaging, including barium study.
DVT Prophylaxis- SCD/Full code
------
Echo 04/17-
CONCLUSIONS
Limited echocardiogram with limited views. Valves not fully interrogated.
Normal left ventricular size, wall thickness and systolic function. No regional
wall motion abnormalities are seen. LV ejection fraction is 55-60% by visual
assessment.
Right ventricle not seen.
CT Head 04/17-
IMPRESSION: No acute intracranial pathology.
Mild atrophy. Stable.
Mild periventricular small vessel ischemic disease. Stable
ASPECT score: 10
MRI Brain 04/17-
IMPRESSION:
Limited by patient motion. As far as visualized, no convincing restricted diffusion to suggest acute infarct. Mild chronic microvascular white matter ischemic disease.
CT head 04/16�
IMPRESSION:
1. No CT evidence for acute intracranial hemorrhage.
2. 1.4 cm region of asymmetric low attenuation in the subcortical white matter of the right frontal lobe p[place]man radiata. Diagnostic possibilities are (1) asymmetric white matter leukoaraiosis or (2) cytotoxic edema from an acute ischemic infarct.
3. Moderate periventricular white matter leukoaraiosis in both frontal lobes.
4. Mild diffuse cerebral and cerebellar volume loss.
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
Subjective Dataa
Subjective Data
Date of Service:
Date of Service: April 18, 2024
Overnight, patient became agitated again and was started on Precedex. She continues to remain confused, combative and agitated. Remains in 4 point restraints. Blood pressure 167/81, pulse 57, respirations 18, afebrile, 97% on room air.
This morning, patient refused breast ultrasound and labs. Plan for sedation prior to LP procedure.
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
Objective Data
Data Reviewed
Vital Signs / I&O / Oxygen:
Vital Signs
Temp Pulse Resp BP Pulse Ox
97.8 F 58 18 177/76 97
04/18/24 03:24 04/18/24 07:15 04/18/24 07:15 04/18/24 07:00 04/18/24 07:15
Intake and Output
04/17/24 04/18/24 04/19/24
06:59 06:59 06:59
Intake Total 602.5 / 652.5 952.3 / 967.1 14.8 / 14.8
Output Total 900 / 900 1050 / 1050
Balance -297.5 / -247.5 -97.7 / -82.9 14.8 / 14.8
SaO2 97
Nasal Cannula flow liters per 4
minute
Physical Exam
General: Other (Sedated)
HEENT: Normocephalic and Anicteric
Cardiovascular: S1-S2 and Regular Rhythm
Respiratory: Clear
GI: Soft
Neurology: Other (Sedated)
Skin: Warm and Dry
Labs/Micro/Reports
Lab Data
04/18/24 05:20
04/18/24 05:20
Laboratory Results
04/17/24
14:51
PT 13.1
INR 0.94
APTT 24.2
--- NOTE | 2024-04-18 08:28 | PTCARENOTE ---
recd 0715 handoff at bedside, 1:1 maintained for safety, resting when undisturbed, with care or stimulation, becomes agitated, profane. turned, skin care (pinching, fighting yelling - calmed when activity completed), bladder scanned, incont.
Presently radiological technician here for test.
--- NOTE | 2024-04-18 09:23 | W.PN.HOSP.TC ---
Addendum entered and electronically signed by Jamar Ibrahim MD 04/18/24 20:29:
Attending Addendum-I saw and evaluated the patient. I reviewed the resident�s note and agree with findings and plan as documented in the resident�s note. Sub: Not following commands. speech more fluent. agitated. 'get me the hell out of here'
patient agitated with hallucinations. D/W Neuro Full 12 point ROS unable to be obtained due to MS Exam- vitals reviewed in EMR GEN-agitated HEENT no facial swelling heart RRR lungs clear Abd soft LE no edema Neuro agitated refusing to follow
commands
Plan:
# Toxic Metabolic Encephalopathy
- continue care in ICU
- cont Precedex gtt due to extreme agitation
- initially presumed to be Acute CVA
- stroke alert called 04/17- stat ct- no acute IC abnormalities
- head CT and CTA 04/16 - no acute abnormalities
- s/p TNK 04/16
- cont neuro checks per protocol
- cont nicardipine to maintain BP < 180/105
- MRI-Limited by patient motion. As far as visualized, no convincing restricted diffusion to suggest acute infarct. Mild chronic microvascular white matter ischemic disease.
- Echo-Normal left ventricular size, wall thickness and systolic function. No regional wall motion abnormalities are seen. LV ejection fraction is 55-60% by visual assessment.
- appreciate neuro input
- possible encephalitis picture - check LP and EEG
- psych c/s placed
- patient lacks capacity-son on board
- PT/OT/Speech
# Facial Swelling
- resolved
- from labetalol vs TNK
- Solumedrol/Pepcid/Benadryl x 1
# Hypokalemia
- replete aggressively
- repeat in am
# Leukocytosis
-worsening
-likely reactive
-r/o infection
-cont to trend
# Hypomagnesia
- repleted
- repeat in am
# Left Breast Mass and bleeding
- patient states she has had a mammogram in the past
- will need follow up as OP
# HTN
- hold lisinopril
- cont nicardipine gtt
DVTp - Lovenox
CC Note
Due to a high probability of clinically significant, life-threatening deterioration, the patient required a high level of preparedness to intervene emergently. I personally spent this critical care time directly and personally managing the patient.
This critical care time included obtaining a history; examining the patient; ordering and review of studies and STAT labs; arranging urgent treatment with development of a management plan; evaluation of patient's response to treatment; reassessment;
and, discussions with other providers.
This critical care time was performed to assess and manage the high probability of imminent, life-threatening deterioration that could result in multi-organ failure. It was exclusive of separately billable procedures and treating other patients and
teaching time.
Total critical care time: Approximately 40 minutes
Original Note:
Today's Communication/Plan
-
-Maintenance IV fluids with
-Neuro checks
-Wean supplemental oxygen via nasal cannula as able to
-Follow CBC, CMP, Mg level
-Breast US planning
-Neurology planning LP
Assessment / Plan
Assessment / Plan
73 year old female was admitted to the hospital with stroke prealert on 04/16/24. She was assessed by Neurology and received TNK treatment.
04/17/24, patient became agitated and her mental status changed. Her stat head CT did not show any acute abnormality. Her brain MRI was not suggestive of acute infarct.
04/18/24, patient was seen in her bed sedated with Precedex drip around 8 am. Around 10:50 am she was sitting in her bed and she was awake, alert, oriented to herself and place but not to the time. She she had some hallucinations reporting someone
is holding her hand. Since yesterday, patient had episodes of agitation and denied having any imaging or procedures. Neurology called her son and it was decided to proceed LP for further differential diagnosis the concern of encephalitis.
Impression/Plan
Acute CVA likely left MCA stroke
Acute mental status change
Hypokalemia
Breast mass
Anemia
Hypomagnesemia
Possible esophageal diverticulum
#Acute CVA likely left MCA stroke
-Received stroke protocol with TNK at ED admission on ///right-sided weakness found grossly resolved following TNK treatment
-Admitted to the ICU for close monitoring
-Became agitated on 04/17/[address] and obtained stat head CT which was not significant for acute cranial abnormality
-Stat Head CT 04/16/2024: no CT evidence for acute intracranial hemorrhage.// 1.4 cm region of asymmetric low attenuation in the subcortical white matter of the right frontal lobe [facility] radiata with differential diagnosis of (1) asymmetric white
matter leukoaraiosis or (2) cytotoxic edema from an acute ischemic infarct.
-Brain MRI on 04/17/2024 was not significant for an ischemic infarct
-ECHO on 04/17/24: Normal left ventricular size, wall thickness and systolic function. No regional wall motion abnormalities are seen. LV ejection fraction is 55-60% by visual assessment.
-Neurology on board-planning LP for concern of encephalitis-her son agreed per neurology physician report
-Can be given nicardipine with a goal to keep BP <185/110
-PT/OT evaluation when the patient stabilizes
-Appreciate speech therapy evaluation--recommended IDDSI 6 diet//it can be ordered following LP procedure based on her mental status
#Acute mental status change
-A new acute stroke alert given on 04/17/24 around 10. 30
-Given Ativan and Zyprexa to proceed head CT due agitation
-Still in 4 points restraints due agitation
-Neuro check per protocol
-Patient was found sedated on Precedex
-Patient had some hallucinations reporting someone is holding her hand
-Psychiatry was consulted
-Zyprexa PRN
# Hypokalemia
-Resolved
-Potassium found 2.6 at admission
-Symptoms can be related to hypokalemic periodic paralysis
-Consider for paraneoplastic hyperaldosteronism due breast mass
-Replete potassium with a goal to keep>4
-RAA pending
-Cortisol 5.7
#Facial swelling
-Improved
# Hypomagnesemia
-Resolved
-Check Mg daily
-Replete as needed
#Breast mass
-Some blood seen on the left nipple likely due to trauma
-Mass was palpated under nipple
-Patient's son reports her mother does not see any physician for a long time
-Patient denied any history of breast cancer
-Breast ultrasound waiting to be obtained
DVT Prophylaxis- SCD
Code: DNR/DNI (her CODE STATUS changed from full code to DNR/DNI after superintendent division team had a discussion with her son, Og on 04/17/2024)
Anticipated Discharge: 24 - 48 hours
Subjective/Interval History
-
Date of Service: April 18, 2024
Patient was seen in her bed this morning. She was under sedation with Precedex around 8.00 am
Objective Data
-
Labs:
Laboratory Results
04/18/24
05:20
WBC 17.0 H
Hgb 12.1
Hct 36.6 L
Plt Count 338
Sodium 140
Potassium 3.7
Chloride 102
Carbon Dioxide 32 H
BUN 25 H
Creatinine 0.8
Glucose 123 H
Calcium 9.9
Total Bilirubin 0.5
AST 28
ALT 21
Alkaline Phosphatase 256 H
Vital Signs:
Vital Signs
Temp Pulse Resp BP Pulse Ox
98.4 F 57 18 167/81 97
04/18/24 07:30 04/18/24 08:15 04/18/24 08:15 04/18/24 08:00 04/18/24 08:15
I&O
04/17/24 04/18/24 04/19/24
06:59 06:59 06:59
Intake Total 602.5 / 652.5 952.3 / 967.1 29.6 / 29.6
Output Total 900 / 900 1050 / 1050
Balance -297.5 / -247.5 -97.7 / -82.9 29.6 / 29.6
Review of Systems
-
Unable to obtain full review of systems at this time due to: Other (Around 8 am patient was seen sedated. Around 10. 50 a.m. the patient was agitated with some hallucinations)
History Source: Patient, Family, Physician and Other (Patient was sedated. She was started on Precedex on 04/17/24 due to agitation and still receiving. )
Physical Exam
-
General: Well Developed, Well Nourished and Other (Started on supplemental oxygen via nasal cannula/was on 5 L this a.m. with normal oxygen saturation at 97)
HEENT: Normocephalic and Atraumatic
Respiratory: Clear to Auscultation
Cardiac: Regular Rhythm and S1/S2
GI: Soft and Nondistended
Musculoskeletal: No Clubbing, No Cyanosis and No Edema
Skin: Warm
[2024-04-18 10:10] LABS: Vitamin B12 318 pg/ml (239-931)
--- NOTE | 2024-04-18 11:21 | PTCARENOTE ---
took pt to ultrasound in [facility] for breast. adamantly and pointedly and repeatedly refusing. US staff spoke with pt to same conclusion. Returned to ICU. Refusing any further labs. Refusing temp monitoring. Multiple docs, residents in to speak
with pt. Precedex remains on, restraints removed and pt is cooperative at this time. 1:1 sitter bedside.
--- NOTE | 2024-04-18 11:48 | PTCARENOTE ---
update by phone with son Og. He is aware of her current behavior and strongly insists on LP.
--- NOTE | 2024-04-18 12:04 | PTCARENOTE ---
Presently asleep, resting, VS noted. Awaiting LP in IR.
--- NOTE | 2024-04-18 13:38 | PTOTSP ---
Speech Therapy Evaluation:
Swallow:
Pt presents with signs concerning for oropharyngeal dysphagia as characterized by significantly prolonged mastication, decreased bolus formation, and moderate oral residue with solids. No overt s/sx of aspiration across trials, however cannot r/o
silent aspiration given CXR with 'small right pleural effusion and adjacent atelectasis/consolidation, either new or increased as compared with prior.' Pt is at risk for aspiration and related complications given current mentation with questionable
encephalitis. WBC currently elevated. No hx of ST, dysphagia, or PNAs.
Language/Cognition:
Per chart review, 'pt remains globally aphasic.' Pt able to follow some routine one-step commands during assessment, however unable to follow majority of commands. Question reduced comprehension versus behavioral component. Regarding expressive
language, pt able to functionally communicate simple phrases (i.e. get me out of here, what's this for, etc.), however she is unable to adequately communicate complex thoughts/ideas. Pt also with acute changes in cognition. Pt has been agitated,
combative, refusing care, and using profane language. Communication partner should continue to anticipate pt's wants/needs given extent of cognitive/language impairments.
Pt not appropriate for comprehensive cognitive/language evaluation at this time given increased agitation and decreased cooperation with care. Will follow for further assessment pending appropriateness.
Recommend:
1. Diet downgrade to IDDSI Level 6 (soft and bite sized solids) and thin liquids
2. Medications as tolerated
3. Hold PO if mentation not supportive of oral intake
4. 1:1 assistance and supervision with PO intake
5. General aspiration precautions
6. MANAGEMENT LECTURER to follow at acute care level to monitor tolerance of current diet, determine need for further diet modifications/advancements, determine if pt would benefit from instrumental (although would likely not participate) and to continue assessment
of language/cognitive skills as able
[2024-04-18] MEDS: ZYPREXA 10 MG IM (13:51)
--- NOTE | 2024-04-18 13:58 | PTCARENOTE ---
son here, discussions about family situation, after explanation, son requested his mother to be Confidential status. This has been accomplished. Med with zyprexa for LP upcoming per IR. Oral care given, Pt had a lot of previous food stuck all
around teeth from previous speech eval.
--- NOTE | 2024-04-18 15:25 | W.PN.UPDATE ---
Update Note
Progress Note Update
attempted to see patient this afternoon in icu but she had been sent down for lp. psych will see her tomorrow.
--- NOTE | 2024-04-18 15:48 | PTCARENOTE ---
Pt arrived back from IR from LP...LP site c/d/i. Pt is sedated from procedure, arousable to pain.
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
[2024-04-18 16:16] LABS: CSF Tube # 4
[2024-04-18 16:17] LABS: CSF Clarity Clear; CSF Color Colorless; Red Cell Count/CSF 26 mm^3; White Cell Count/CSF 5 mm^3 (0-5)
[2024-04-18] MEDS: APRESOLINE 5 MG IV ×2 (16:35→21:07)
[2024-04-18 17:00] LABS: Procalcitonin 0.05 ng/ml (0.0-0.25)
[2024-04-18 17:11] LABS: Spinal Fluid Glucose 79 mg/dl (40-70); Spinal Fluid Protein 157 mg/dl (12-60)
[2024-04-18] MEDS: LOVENOX 40 MG SC (17:30)
--- NOTE | 2024-04-18 18:20 | PTCARENOTE ---
Down titrated precedex gtt d/t patients continued sedation, pt is now arousing to voice and following basic commands, very drowsy. Still unable to perform full NIH on her d/t mental status. PRN hydralazine given for SBP > 170 per order, I&O cath
performed d/t urine retention, 1st set of blood cultures and procalcitonin from earlier in shift was able to be obtained. See MAR/flowsheets for further care details.
[2024-04-18 18:48] LABS: Spinal Fluid Lymphocytes 59 %
[2024-04-18 18:49] LABS: Spinal Fluid Macrophages 41 %
--- NOTE | 2024-04-18 19:31 | W.PN.NEURO.1 ---
Today's Communication / Plan
-
looks like autoimmune encephalitis
IVIG 30g x5 days
pre medicate tylenol/benadryl
Neuro Assessment/Plan
Assessment
initially suspected acute L MCA territory stroke
patient treated with TNK
remains globally aphasic, agitated - MRI no stroke, ?encephalitis?
EEG background slow
I spoke with her son Shon who consented to LP
CSF wbc 5, glucose 79, protein 157
pending viral pcr, paraneoplastic antibodies, crypto, lyme, acid fast,
looks like autoimmune encephalitis
IVIG 30g x5 days
Plan
IVIG 30g x5 days
Subjective/Objective
Subjective Data
Date of Service: April 18, 2024
patient refusing care, demanding to go home
Objective Data
Vital Signs
Temp Pulse Resp BP Pulse Ox
36.9 C 57 15 163/79 94
04/18/24 15:15 04/18/24 17:21 04/18/24 17:21 04/18/24 17:21 04/18/24 17:21
Lab Results
04/18/24 05:20
04/18/24 05:20
PT 13.1 Sec (11.4-14.6) 04/17/24 14:51
INR 0.94 04/17/24 14:51
APTT 24.2 Sec (23.4-35.0) 04/17/24 14:51
Sodium 140 mmol/L (135-145) 04/18/24 05:20
Potassium 3.7 mmol/L (3.5-5.1) 04/18/24 05:20
BUN 25 mg/dl (7-17) H 04/18/24 05:20
Glucose 123 mg/dl (70-99) H 04/18/24 05:20
Calcium 9.9 mg/dl (8.4-10.2) 04/18/24 05:20
Phosphorus 3.4 mg/dl (2.5-4.5) 04/18/24 05:20
LDL Cholesterol, Calc 118 mg/dl 04/17/24 14:51
Vitamin B12 318 pg/ml (239-931) 04/18/24 05:20
Patient Allergies
labetalol Allergy (Verified 04/16/24 19:36)
See comments
tenecteplase Allergy (Verified 04/16/24 19:36)
See comments
Physical Exam
-
aphasic, confused, agitated, paranoid, psychotic.
otherwise nonfocal
--- NOTE | 2024-04-18 19:39 | EEG.RPT ---
Electroencephalogram Report
Recording
Date of EE04/18/24
Type of EEG: Routine
Length of EEG recordin mins
Done with Video Recording: Yes
Patient Status: Inpatient
Recording Conditions: Awake, Confused and Combative
Hyperventilation Performed: No
Photic Stimulation Performed: Yes
Report
Clinical Background:�73 year old woman suspected encephalitis
Introduction: A routine bedside EEG was done using International 10-20 electrode placement protocol.
Background: In the most alert state, there is continuous generalized polymorphic theta activity 5-6 Hz. It is symmetric. There is spontaneous variability and reactivity.�
Sleep: No sleep is seen.�
Focal/epileptiform: There were no focal or epileptiform discharges. No clinical or electrographic seizures occurred during this recording.
Photic stimulation: resulted in normal driving response. There was no photo myogenic or photoparoxysmal response.�
Impression: continuous generalized slowing
Clinical correlation: mild generalized cerebral dysfunction
--- NOTE | 2024-04-18 20:17 | PTCARENOTE ---
Pt continues to be drowsy from sedation given to perform LP on previous shift. Awakens to voice, says she is in [facility] and knows her name. ALKA, neuro status as documented. SB on monitor. BP 160s, PRN Hydral and Cardene if sustained.
Additional IV placed, second set of cultures drawn. Order noted to administer IVIG tonight for autoimmune encephalitis, with premeds. Awaiting from pharmacy. 4L NC, sat 96%. Inc bowel/bladder, straight cath on previous shift. Will monitor.
[2024-04-18] MEDS: BENADRYL 25 MG IV (20:35)
[2024-04-18] MEDS: OFIRMEV 100 IV (20:35)
[2024-04-18] MEDS: GAMMAGARD 50 IV (21:10)
[2024-04-18] MEDS: GAMMAGARD 200 IV (22:22)
[2024-04-19] VITALS (29 sets, daily range): BP systolic 127–200; BP diastolic 61–127; BMI 27.9
--- NOTE | 2024-04-19 00:20 | PTCARENOTE ---
Pt resting comfortably with 1:1 supervision at bedside along with Precedex gtt for agitation. IVIG given without adverse reaction. Will monitor.
[2024-04-19 04:13] LABS: % Basophils 0.3 % (0-2); % Eosinophils 0.1 % (0-6); % Immature Granulocytes 2.1 % (0-0.5); % Lymphocytes 18.7 % (20.5-51.1); % Monocytes 9.8 % (1.7-9.3); Absolute Immature Granulocytes 0.2 10^3/uL (0-0.05); Absolute Lymphocytes 1.8 10^3/uL (1.2-3.4); Absolute Neutrophils 6.7 10^3/uL (1.4-6.5); Hematocrit 33.5 % (37.0-47.0); Hemoglobin 11.6 g/dL (12.0-16.0); Mean Corp Hgb Conc. 34.6 g/dL (33.0-37.0); Mean Corpuscular Hgb 31.1 pg (27.0-31.0); Mean Corpuscular Volume 89.8 fL (81.0-99.0); Mean Platelet Volume 10.4 fL (7.4-10.4); Nucleated Red Blood Cells % 0 %; Platelet Count 274 10^3/uL (130-400); Red Blood Cell Count 3.73 10^6/uL (4.20-5.40); Red Cell Dist. Width 14.8 % (11.5-14.5); White Blood Cell Count 9.8 10^3/uL (4.8-10.8)
[2024-04-19] MEDS: PRECEDEX 100 IV (04:45)
[2024-04-19 05:26] LABS: ALT (SGPT) 22 U/L (0-35); AST (SGOT) 30 U/L (14-36); Albumin 3.2 g/dl (3.5-5.0); Alkaline Phosphatase 234 U/L (38-126); Blood Urea Nitrogen 31 mg/dl (7-17); Calcium 9.6 mg/dl (8.4-10.2); Carbon Dioxide 30 mmol/L (22-30); Chloride 104 mmol/L (98-107); Estimated Creatinine Clearance 73 ml/min; Glucose 85 mg/dl (70-99); Magnesium 1.9 mg/dl (1.6-2.3); Potassium 3.4 mmol/L (3.5-5.1); Sodium 138 mmol/L (135-145); Total Bilirubin 0.8 mg/dl (0.2-1.3); eGFR > 60.00
[2024-04-19] MEDS: KCL 270 MEQ IV (05:43)
--- NOTE | 2024-04-19 07:58 | W.PN.INTV ---
Today's Communication / Plan
Recommendations
Continue IVIG as per neurology
Wean off Precedex drip
Start olanzapine in an effort to wean off Precedex
Continue aspiration precautions
Diet as per TORCH BRAZER
Restart Zestril given elevated blood pressure today
Continue to monitor for anaphylaxis given her initial allergic reaction s/p TN K on admission
Continue ICU level care for this critically ill patient while we try to wean off Precedex drip. Once Precedex drip has been weaned off we can downgrade to telemetry. Once downgraded to telemetry then we will sign off.
Assessment
-
Impression:
#Suspected left MCA stroke s/p TNK (administered on 04/16/2024 at 1406) --> CVA ruled out by brain MRI on 04/17/2024
#Abnormal lumbar puncture with elevated protein + glucose with concern for autoimmune encephalitis � now on IVIG since 04/18/2024
#Sudden right-sided facial swelling on 04/16/2024 after she arrived to ICU; also with hives suspected to be anaphylactic reaction from either TNK or labetalol
#Oral bleeding as well as bleeding seen from left nipple likely due to adverse effect from TNK
#Anemia - now resolved
#Hypokalemia
#Hypomagnesemia - now resolved
#Elevated ALP
#Suspected esophageal diverticulum
Plan:
- Continue with precedex gtt given significant agitation - try to wean off of this Lopez today if possible
-If unable to wean off Precedex and I will start olanzapine, and if she is not able to take PO meds then I will start IM Zyprexa
- Cardene gtt off since 04/17; maintain MAP>65 and keep BP<140/90; no need for permissive hypertension given that she did not have a stroke
- Given that the MRI brain did not show any evidence of an acute CVA but she remains confused, patient underwent LP on 04/18/2024
- There is concern for autoimmune encephalitis with glucose at 79, protein 157 and WBC 5 � IVIG started on 04/18 and she seems much improved today; continue IVIG as per neurology
- Follow up CSF fluid cultures, CSF meningitis/encephalitis PCR panel and syphilis serology in addition to Lyme disease PCR
- EEG done today � shows continuous generalized slowing due to mild generalized cerebral dysfunction
- Defer diet to TORCH BRAZER --> cleared for IDDSI level 6 with thin liquids
- Maintain euglycemia with goal BG 140-180
- Maintain SpO2 >92-94%
- Echo performed on 04/17 showed normal LV size and function with no regional WMA. No reports of interatrial septal defect
- Replete electrolytes with K>4, Mg>2
- Maintain normothermia
- LDL is 118 --> given that she does not have an acute stroke, no need to aggressively treat this degree of mild hyperlipidemia
- A1C: 6 on 04/16/2024
- Considering the patient had facial swelling after getting both TNK and labetalol, unclear what she is having a reaction to. She was treated for a suspected anaphylactic reaction with Pepcid, Benadryl, and Solu-Medrol; swelling has markedly
improved as of 04/17. Continue to monitor her degree of swelling as well as respiratory rate and oxygen saturations, and if any SOB, wheezing or stridor were to develop then she may need to be intubated for airway protection with ENT consult - no
need for ENT consult at this time.
- Given the suspected esophageal diverticulum seen on CTA head/neck on 04/16/2024, consider esophagram if any difficulty swallowing with GI consult
- Continue to monitor her left nipple bleeding; check left breast ultrasound and if abnormal then consult gynecology (pt refused breast US on 04/18 --> can try again on Sunday)
- Trend H/H and transfuse if needed to keep Hb>7g/dL; keep plt>100k
- Serum bicarbonate level was 34 on admission; blood gas checked on 04/17 shows stable chronic hypercapnia with pH 7.4 and pCO2 51
- Trend ALP level
- prn nebulized bronchodilators - not currently bronchospastic
- DVT ppx: LMWH
Continue ICU level care for this critically ill patient while we try to wean off Precedex drip. Once Precedex drip has been weaned off we can downgrade to telemetry. Once downgraded to telemetry then we will sign off.
Critical care statement: A total of 38 minutes of critical care time was provided for this patient today. This includes management of unstable vital signs, evaluation of the patient at bedside, reviewing the patient's pertinent medical records
including radiographs, microbiology, laboratory evaluations, and discussion with primary team, consultants, pharmacy, nutrition, physical therapy, case management, charge nurse, critical care nursing, and respiratory therapy.
Data:
CT Head 04/16/2024: No evidence of acute intracranial abnormality.
CTA Head + Neck 04/16/2024:
In the left lower neck at the junction with the upper chest, posterior to the left lobe of the thyroid gland and left lateral to the esophagus and trachea, there is a mixed air and soft tissue density, which almost certainly represents an esophageal
diverticulum. If further imaging evaluation is desired, consideration for esophagram.
No evidence for hemodynamically significant stenosis of the common carotid arteries, carotid bulbs, or internal carotid arteries bilaterally.
The anterior cerebral and middle cerebral arteries appear within normal limits.
Larger caliber right vertebral artery compared to the left. The left vertebral artery terminates as the posterior inferior cerebellar artery. No significant narrowing of the vertebral or basilar arteries.
Mild luminal irregularity of the posterior cerebral arteries with no evidence for occlusion or high-grade stenosis.
Brain MRI 04/17/2024: Limited by patient motion. As far as visualized, no convincing restricted diffusion to suggest acute infarct. Mild chronic microvascular white matter ischemic disease.
Subjective Dataa
Subjective Data
Date of Service:
Date of Service: April 19, 2024
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
Subjective:
Patient seen and evaluated today at bedside. Remains on Precedex at 0.3 mcg/kg/hr. She is awake, alert, conversing to me with normal affect and says she does not really remember the last few days of her hospitalization. Current heart rate 93, BP
166/82 and saturating 94% on room air. She denies chest pain, ARCE, nausea, vomiting, fevers or chills.
Review of Systems
General: Other (Negative unless mentioned above)
Objective Data
Data Reviewed
Vital Signs / I&O / Oxygen:
Vital Signs
Temp Pulse Resp BP Pulse Ox
98.7 F 59 19 158/72 93
04/19/24 07:02 04/19/24 09:00 04/19/24 09:00 04/19/24 08:00 04/19/24 08:56
Intake and Output
04/18/24 04/19/24 04/20/24
06:59 06:59 06:59
Intake Total 952.3 / 967.1 846.5 / 905.8 170.5 / 170.5
Output Total 1050 / 1050 500 / 500
Balance -97.7 / -82.9 346.5 / 405.8 170.5 / 170.5
SaO2 93
Nasal Cannula flow liters per 4
minute
Physical Exam
General: Respiratory Distress (negative), Comfortable, Chills (negative) and Sweats (negative)
HEENT: Normocephalic and Anicteric
Cardiovascular: S1-S2, Regular Rhythm and Peripheral Edema (negative)
Respiratory: Clear, Wheeze (negative), Crackles (negative), Rhonchi (negative) and Non-Labored Respirations
GI: Soft, Non Distended, Non Tender and Normal Bowel Sounds
Neurology: AO x 3 and Tremors (negative)
Skin: Warm, Dry, Cyanosis (negative) and Jaundice (negative)
Labs/Micro/Reports
Lab Data
04/19/24 03:37
04/19/24 04:49
Microbiology
04/18/24 14:55 Csf Gram Stain - Preliminary
04/18/24 14:55 Csf Fungal Culture - Preliminary
Culture in progress.
Positive cultures are reported as soon as detected.
Final report to follow in four to five weeks.
04/18/24 14:55 Csf Meningitis/Encephalitis Panel (PCR) - Final
--- NOTE | 2024-04-19 09:03 | PTCARENOTE ---
Pt received from night auditor RN. More appropriate this AM. She's able to tell me she at [facility], initially she told me the year was 1924 but shortly after corrected herself. She follows commands and has been appropriate. NIH scored as a 2 for
aphasia and slurring. Attempting to taper precedex based on her behavior. NSR on tele. + pulses. 93% on RA, breath sounds are clear. Round, obese ABD, + BS. Having incontinent episodes but has so far asked for the bedpan appropriately. Skin is
intact. Call sanchez within reach. 1:1 at bedside.
--- NOTE | 2024-04-19 10:17 | W.PN.NEURO.1 ---
Today's Communication / Plan
-
IVIG 2/5 tonight
Neuro Assessment/Plan
Assessment
initially suspected acute L MCA territory stroke
patient treated with TNK
remains globally aphasic, agitated - MRI no stroke, ?encephalitis?
EEG background slow
I spoke with her son Shon who consented to LP
CSF wbc 5, glucose 79, protein 157
consistent with autoimmune encephalitis
pending viral pcr, paraneoplastic antibodies, crypto, lyme, acid fast,
ordered CSF encephalitis panel. suspecting paraneoplastic etiology ?breast ca
Plan
IVIG 25g x5 days
Subjective/Objective
Subjective Data
Date of Service: April 19, 2024
looks much better after first dose IVIG
Objective Data
Vital Signs
Temp Pulse Resp BP Pulse Ox
37.1 C 73 29 166/82 93
04/19/24 07:02 04/19/24 09:30 04/19/24 09:30 04/19/24 09:09 04/19/24 09:39
Lab Results
04/19/24 03:37
04/19/24 04:49
PT 13.1 Sec (11.4-14.6) 04/17/24 14:51
INR 0.94 04/17/24 14:51
APTT 24.2 Sec (23.4-35.0) 04/17/24 14:51
Sodium 138 mmol/L (135-145) 04/19/24 04:49
Potassium 3.4 mmol/L (3.5-5.1) L 04/19/24 04:49
BUN 31 mg/dl (7-17) H 04/19/24 04:49
Glucose 85 mg/dl (70-99) 04/19/24 04:49
Calcium 9.6 mg/dl (8.4-10.2) 04/19/24 04:49
Phosphorus 3.4 mg/dl (2.5-4.5) 04/18/24 05:20
LDL Cholesterol, Calc 118 mg/dl 04/17/24 14:51
Vitamin B12 318 pg/ml (239-931) 04/18/24 05:20
Patient Allergies
labetalol Allergy (Verified 04/16/24 19:36)
See comments
tenecteplase Allergy (Verified 04/16/24 19:36)
See comments
Physical Exam
-
calm
names 'bienvenido', cap/top, straw, glasses.
--- NOTE | 2024-04-19 11:47 | W.PN.UPDATE ---
Update Note
Progress Note Update
Psychiatry update. Spoke with primary team who stated to hold off on psychiatry consult through the weekend. If anything changes or consult is no longer needed, they will let team know.
[2024-04-19] MEDS: TYLENOL 650 MG PO (12:55)
[2024-04-19] MEDS: APRESOLINE 5 MG IV ×2 (13:01→18:29)
[2024-04-19] MEDS: ZESTRIL 10 MG PO (13:01)
--- NOTE | 2024-04-19 13:58 | W.PN.HOSP.TC ---
Today's Communication/Plan
-
wean precedex as tolerated
IVIG
Adjust bp meds as needed
po diet tolerance
Assessment / Plan
Assessment / Plan
# Toxic Metabolic Encephalopathy
- cont Precedex gtt due to extreme agitation
- initially presumed to be Acute CVA
- stroke alert called 04/17- stat ct- no acute IC abnormalities
- head CT and CTA 04/16 - no acute abnormalities
- s/p TNK 04/16
- cont neuro checks per protocol
- cont nicardipine to maintain BP < 180/105
- MRI-Limited by patient motion. As far as visualized, no convincing restricted diffusion to suggest acute infarct. Mild chronic microvascular white matter ischemic disease.
- Echo-Normal left ventricular size, wall thickness and systolic function. No regional wall motion abnormalities are seen. LV ejection fraction is 55-60% by visual assessment.
- appreciate neuro input
- possible encephalitis picture - check LP and EEG
- s/p status post LP with WBC of 5 and mildly elevated glucose and protein. Other CSF studies pending
- Status post Eeg
- Patient was started on IVIG per neurology. Plan to complete 5-day course.
- Consider psych eval post IVIG to assess mentation and assess capacity
# Facial Swelling
- resolved
- from labetalol vs TNK
- Solumedrol/Pepcid/Benadryl x 1
#Dysphagia
on IDDS6 w/thin liquids
# Hypokalemia
- replete aggressively
- repeat in am
# Leukocytosis
-worsening
-likely reactive
-r/o infection
-cont to trend
# Hypomagnesia
- repleted
- repeat in am
# Left Breast Mass and bleeding
- patient states she has had a mammogram in the past
- will need follow up as OP
# HTN
-Restart lisinopril. Hydralazine as needed
-Increase dose of lisinopril if needed
DVT ppx - Lovenox
cont icu level of care while on precedex
Anticipated Discharge: > 48 hours
Subjective/Interval History
-
Date of Service: April 19, 2024
remains in bed
remains on precedex
able to recall some events so far in hospitalization
knew she was on [facility]. Month. Knew she was in hospital for 3d so far
Objective Data
-
Labs:
Laboratory Results
04/19/24 04/19/24
03:37 04:49
WBC 9.8
Hgb 11.6 L
Hct 33.5 L
Plt Count 274
Sodium Cancelled 138
Potassium Cancelled 3.4 L
Chloride Cancelled 104
Carbon Dioxide Cancelled 30
BUN Cancelled 31 H
Creatinine Cancelled 0.7
Glucose Cancelled 85
Calcium Cancelled 9.6
Total Bilirubin Cancelled 0.8
AST Cancelled 30
ALT Cancelled 22
Alkaline Phosphatase Cancelled 234 H
Vital Signs:
Vital Signs
Temp Pulse Resp BP Pulse Ox
98 F 80 17 198/85 93
04/19/24 11:10 04/19/24 13:30 04/19/24 13:30 04/19/24 13:01 04/19/24 09:39
I&O
04/18/24 04/19/24 04/20/24
06:59 06:59 06:59
Intake Total 952.3 / 967.1 846.5 / 905.8 229.8 / 229.8
Output Total 1050 / 1050 500 / 500 300 / 300
Balance -97.7 / -82.9 346.5 / 405.8 -70.2 / -70.2
Physical Exam
-
General: Well Developed and Well Nourished
HEENT: Normocephalic, Atraumatic and Moist Mucous Membranes
Respiratory: Clear to Auscultation
Cardiac: Regular Rhythm and S1/S2
GI: Soft, Nontender, Nondistended and Normal Bowel Sounds
Musculoskeletal: No Clubbing, No Cyanosis and No Edema
Skin: Warm
Neuro: Awake and Alert; Negative Facial Droop
Psych: Calm
[2024-04-19] MEDS: ZYPREXA 5 MG PO (14:28)
--- NOTE | 2024-04-19 15:16 | PTCARENOTE ---
Attempted to DC precedex gtt. Pt was calm for an hour before she started to become very anxious, pulling at IV's, agitated. BP elevated at this time. Hydralazine and lisinopril given. Precedex restarted. In an attempt to wean pt off precedex, a dose
of Zyprexa was given. Pt is now resting comfortably.
[2024-04-19] MEDS: LOVENOX 40 MG SC (18:28)
[2024-04-19] MEDS: VASOTEC 1.25 MG IV (20:07)
[2024-04-19] MEDS: BENADRYL 25 MG IV (20:07)
[2024-04-19] MEDS: OFIRMEV 100 IV (20:08)
[2024-04-19] MEDS: GAMMAGARD 50 IV (20:52)
--- NOTE | 2024-04-19 21:00 | PTCARENOTE ---
Received pt this shift with dex gtt off. Pt angry, uncooperative, hollering out, pulling at IV lines and nuclear monitoring technician. Patient able to answer simple questions, knows where she is, follows commands, but continues to be agitated and pull at lines.
Often calling out for 'Serge'. Afebrile, ST on monitor BP 160S. TOOLS AND [employer]S ATTENDANT Ramos at bedside. Precedex restarted, Zyprexa IM as ordered. Bilateral wrist restraints for safety and bed alarm on. 1:1 observation continued. 2nd dose of IVIG tonight. Room
air, lungs clear. Tolerating diet. Bathroom/bedpan for toileting needs. Will continue to monitor closely and maintain safe environment.
[2024-04-19] MEDS: ZYPREXA 5 MG IM (21:15)
[2024-04-19] MEDS: STERILE WATER FOR INJECTION 2.1 ML IM (21:16)
[2024-04-19] MEDS: GAMMAGARD 200 IV (22:42)
[2024-04-20] VITALS (23 sets, daily range): BP systolic 130–176; BP diastolic 68–107
--- NOTE | 2024-04-20 00:30 | PTCARENOTE ---
IVIG 2nd dose given. Titrating dex gtt to clinical endpoints. Pt cooperative and pleasant on dex. No change in previous assessment. Will monitor.
[2024-04-20 04:27] LABS: Blood Urea Nitrogen 28 mg/dl (7-17); Calcium 9.4 mg/dl (8.4-10.2); Carbon Dioxide 31 mmol/L (22-30); Chloride 103 mmol/L (98-107); Estimated Creatinine Clearance 64 ml/min; Glucose 107 mg/dl (70-99); Magnesium 1.9 mg/dl (1.6-2.3); Potassium 3.2 mmol/L (3.5-5.1); Sodium 137 mmol/L (135-145); eGFR > 60.00
[2024-04-20] MEDS: KCL 270 MEQ IV (05:11)
--- NOTE | 2024-04-20 05:28 | PTCARENOTE ---
Pt ambulated to bathroom on low dose dex gtt. AM care provided. Labs sent resulted and treated. Pt cooperative. Will monitor.
[2024-04-20] MEDS: PRECEDEX 100 IV (06:25)
[2024-04-20] MEDS: ZYPREXA 5 MG PO (07:42)
[2024-04-20] MEDS: ZESTRIL 10 MG PO (07:43)
[2024-04-20] MEDS: VITAMIN B-12 1000 MCG PO (07:43)
--- NOTE | 2024-04-20 08:19 | W.PN.INTV ---
Today's Communication / Plan
Recommendations
Continue IVIG as per neurology
Patient fully weaned off Precedex drip earlier this morning
Continue olanzapine with occasional trending of QTc
Continue aspiration precautions
Diet as per [facility]
Continue Zestril given elevated blood pressure --> she is now at max dose of lisinopril (40 mg daily); may need a 2nd BP agent
Continue to monitor for anaphylaxis given her initial allergic reaction s/p TNK on admission
Patient now off Precedex drip and is awake, alert, calm and following all commands, sitting in chair with 1: 1 in the room. --> stable for downgrade out of ICU to telemetry. No additional recommendations at this time. Personnel Generalist Manager/Pulmonary service
will now sign off. Please reconsult if there are any additional questions/concerns, or if patient's respiratory status deteriorates.
Assessment
-
Impression:
#Suspected left MCA stroke s/p TNK (administered on 04/16/2024 at 1406) --> CVA ruled out by brain MRI on 04/17/2024
#Abnormal lumbar puncture with elevated protein + glucose with concern for autoimmune encephalitis � now on IVIG since 04/18/2024
#Sudden right-sided facial swelling on 04/16/2024 after she arrived to ICU; also with hives suspected to be anaphylactic reaction from either TNK or labetalol
#Oral bleeding as well as bleeding seen from left nipple likely due to adverse effect from TNK � bleeding has stopped from the mouth and left nipple
#Anemia - now resolved
#Hypokalemia
#Hypomagnesemia - now resolved
#Elevated ALP
#Suspected esophageal diverticulum
Plan:
-Now off Precedex drip since earlier this morning
-Continue with olanzapine with prn IM Zyprexa + Ativan
- Cardene gtt off since 04/17; maintain MAP>65 and keep BP<140/90; no need for permissive hypertension given that she did not have a stroke
- Given that the MRI brain did not show any evidence of an acute CVA but she remains confused, patient underwent LP on 04/18/2024
- There is concern for autoimmune encephalitis with glucose at 79, protein 157 and WBC 5 � IVIG started on 04/18 and she seems much improved since 04/19; continue IVIG as per neurology
- Follow up CSF fluid cultures, CSF meningitis/encephalitis PCR panel and syphilis serology in addition to Lyme disease PCR
- EEG done 04/18/2024 � shows continuous generalized slowing due to mild generalized cerebral dysfunction
- Defer diet to [facility] --> cleared for IDDSI level 6 with thin liquids
- Maintain euglycemia with goal BG 140-180
- Maintain SpO2 >92-94%
- Echo performed on 04/17 showed normal LV size and function with no regional WMA. No reports of interatrial septal defect
- Replete electrolytes with K>4, Mg>2
- Maintain normothermia
- LDL is 118 --> given that she does not have an acute stroke, no need to aggressively treat this degree of mild hyperlipidemia
- A1C: 6 on 04/16/2024
- Considering the patient had facial swelling after getting both TNK and labetalol, unclear what she is having a reaction to. She was treated for a suspected anaphylactic reaction with Pepcid, Benadryl, and Solu-Medrol; swelling has markedly
improved as of 04/17. Continue to monitor her degree of swelling as well as respiratory rate and oxygen saturations, and if any SOB, wheezing or stridor were to develop then she may need to be intubated for airway protection with ENT consult - no
need for ENT consult at this time.
- Given the suspected esophageal diverticulum seen on CTA head/neck on 04/16/2024, consider esophagram if any difficulty swallowing with GI consult
- Continue to monitor her left nipple bleeding; check left breast ultrasound and if abnormal then consult gynecology (pt refused breast US on 04/18 --> can try again on Sunday)
- Trend H/H and transfuse if needed to keep Hb>7g/dL; keep plt>100k
- Serum bicarbonate level was 34 on admission; blood gas checked on 04/17 shows stable chronic hypercapnia with pH 7.4 and pCO2 51
- Trend ALP level
- prn nebulized bronchodilators - not currently bronchospastic
- DVT ppx: LMWH
Patient now off Precedex drip and is awake, alert, calm and following all commands, sitting in chair with 1: 1 in the room. Stable for downgrade out of ICU to telemetry. No additional recommendations at this time. Personnel Generalist Manager/Pulmonary service
will now sign off. Thank you for allowing us to be involved in the care of this patient. Please reconsult if there are any additional questions/concerns, or if patient's respiratory status deteriorates.
Data:
CT Head 04/16/2024: No evidence of acute intracranial abnormality.
CTA Head + Neck 04/16/2024:
In the left lower neck at the junction with the upper chest, posterior to the left lobe of the thyroid gland and left lateral to the esophagus and trachea, there is a mixed air and soft tissue density, which almost certainly represents an esophageal
diverticulum. If further imaging evaluation is desired, consideration for esophagram.
No evidence for hemodynamically significant stenosis of the common carotid arteries, carotid bulbs, or internal carotid arteries bilaterally.
The anterior cerebral and middle cerebral arteries appear within normal limits.
Larger caliber right vertebral artery compared to the left. The left vertebral artery terminates as the posterior inferior cerebellar artery. No significant narrowing of the vertebral or basilar arteries.
Mild luminal irregularity of the posterior cerebral arteries with no evidence for occlusion or high-grade stenosis.
Brain MRI 04/17/2024: Limited by patient motion. As far as visualized, no convincing restricted diffusion to suggest acute infarct. Mild chronic microvascular white matter ischemic disease.
Total time spent today was 58 minutes for this encounter. Time includes reviewing laboratory test/imaging results, reviewing pertinent medical records, obtaining and reviewing medical history, performing an appropriate exam, ordering medications,
tests and procedures. Time also includes documentation of this encounter, coordinating patient care and communicating with other healthcare professionals. Total time does not include separately billed tests performed on this date of service.
Subjective Dataa
Subjective Data
Date of Service:
Date of Service: April 20, 2024
Chief Complaint: Personnel Generalist Manager Follow Up
Subjective:
Patient seen this morning. She remains awake, alert in no acute distress. Current BP 154/69, pulse rate 95 and saturating 95% on room air. She feels well, denies chest pain, ARCE, shortness of breath, fevers or chills.
Review of Systems
General: Other (Negative unless mentioned above)
Objective Data
Data Reviewed
Vital Signs / I&O / Oxygen:
Vital Signs
Temp Pulse Resp BP Pulse Ox
97.4 F 51 15 175/95 95
04/20/24 08:00 04/20/24 06:45 04/20/24 06:45 04/20/24 07:43 04/20/24 06:00
Intake and Output
04/19/24 04/20/24 04/21/24
06:59 06:59 06:59
Intake Total 846.5 / 905.8 447.3 / 447.3
Output Total 500 / 500 600 / 600
Balance 346.5 / 405.8 -152.7 / -152.7
SaO2 95
Nasal Cannula flow liters per 4
minute
Physical Exam
General: Respiratory Distress (negative), Comfortable, Chills (negative) and Sweats (negative)
HEENT: Normocephalic and Anicteric
Cardiovascular: S1-S2, Regular Rhythm and Peripheral Edema (negative)
Respiratory: Clear, Wheeze (negative), Crackles (negative), Rhonchi (negative) and Non-Labored Respirations
GI: Soft, Non Distended, Non Tender and Normal Bowel Sounds
Neurology: AO x 3 and Tremors (negative)
Skin: Warm, Dry, Cyanosis (negative) and Jaundice (negative)
Labs/Micro/Reports
Lab Data
04/19/24 03:37
04/20/24 03:46
Microbiology
04/18/24 19:29 Blood/Venous Blood Culture - Preliminary
No Growth in 24 hours- Final report to follow
04/18/24 16:28 Blood/Venous Blood Culture - Preliminary
No Growth in 24 hours- Final report to follow
04/18/24 14:55 Csf CSF Culture - Preliminary
No Growth After 18-24 Hours
04/18/24 14:55 Csf Gram Stain - Preliminary
04/18/24 14:55 Csf Fungal Culture - Preliminary
Culture in progress.
Positive cultures are reported as soon as detected.
Final report to follow in four to five weeks.
04/18/24 14:55 Csf Meningitis/Encephalitis Panel (PCR) - Final
[2024-04-20] MEDS: ZESTRIL 30 MG PO (10:16)
--- NOTE | 2024-04-20 10:44 | CS.PSYCHR ---
Consult Summary - Psychiatry
-
Psychiatry consult for altered mental status/agitation management. 73 yo female admitted 04/16 for stroke like symptoms. Work up by neurology indicated concern for autoimmune encephalitis and 5 day course of IVG was initiated. Tonight will be
treatment 04/09. Zyprexa 5mg daily was started on 04/19 to help process of weaning off Precedex in the ICU. On exam patient is cooperative. She is oriented to self and [facility] but states tomorrow is her birthday (incorrect, born in
[birth year]). Per 1:1 patient has been pleasant and mildly confused this morning and no agitation.
Past psych- Denies
Social- lives alone. son is involved and states she has not had medical care
PMH- breast mass, hypokalemia, low Mg, stroke-like symptoms with concern for autoimmune encephalitis
A/P- 73 yo female with no prior mental health history admitted with altered mental status and agitation being treated for autoimmune encephalitis. Continue Zyprexa 5mg daily for now as it appears to be helping keep her calm. If needed, can divide
the dose to 2.5mg BID but would not recommend an increase in dosage at this time. If her mental status and agitation continues to improve, can then taper/stop Zyprexa prior to discharge.
[2024-04-20 11:47] LABS: Aldosterone, Serum 3.4 ng/dL; Aldosterone/Renin Activ Ratio 3.4 ratio (<=25.0)
--- NOTE | 2024-04-20 12:21 | PTCARENOTE ---
Pt doing well today, more calm this AM. Precedex gtt turned off at 1130. Pt currently calm and interactive. Ox3 and slightly disorganized. BP currently 160/78, lisinopril dose increased. Call sanchez within reach. Bed alarm in place.
--- NOTE | 2024-04-20 13:44 | W.PN.HOSP.TC ---
Today's Communication/Plan
-
wean off precedex gtt
cont w/zyprexa
increase lisinopril dose
IVIG
Monitor mentaiton
Assessment / Plan
Assessment / Plan
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
- cont Precedex gtt due to extreme agitation
- initially presumed to be Acute CVA
- stroke alert called 04/17- stat ct- no acute IC abnormalities
- head CT and CTA 04/16 - no acute abnormalities
- s/p TNK 04/16
- cont neuro checks per protocol
- off nicardipine to maintain BP < 180/105.
- MRI-Limited by patient motion. As far as visualized, no convincing restricted diffusion to suggest acute infarct. Mild chronic microvascular white matter ischemic disease.
- Echo-Normal left ventricular size, wall thickness and systolic function. No regional wall motion abnormalities are seen. LV ejection fraction is 55-60% by visual assessment.
- appreciate neuro input
- possible encephalitis picture - check LP and EEG
- s/p status post LP with WBC of 5 and mildly elevated glucose and protein. Other CSF studies pending
- Status post Eeg
- Patient was started on IVIG per neurology. Plan to complete 5-day course.
- Psych recs-cont w/ zyprexa.
# Facial Swelling
- resolved
- from labetalol vs TNK
- Solumedrol/Pepcid/Benadryl x 1
#Dysphagia
on IDDS6 w/thin liquids
# Hypokalemia
- replete aggressively
- replete prn
# Leukocytosis
resolved
# Hypomagnesia
- repleted
- repeat in am
# Left Breast Mass and bleeding
- patient states she has had a mammogram in the past
- will need follow up as OP
# HTN
-Restart lisinopril. Hydralazine as needed
-Increase dose of lisinopril to 40mg.
DVT ppx - Lovenox
cont icu level of care while on precedex
d/w with psychiatry
Anticipated Discharge: > 48 hours
Subjective/Interval History
-
Date of Service: April 20, 2024
Remains with intermittent agitation
remains on precedex gtt
BP remains elevated
calm this morning on precedex
states she is bored
Objective Data
-
Labs:
Laboratory Results
04/20/24
03:46
Sodium 137
Potassium 3.2 L
Chloride 103
Carbon Dioxide 31 H
BUN 28 H
Creatinine 0.8
Glucose 107 H
Calcium 9.4
Vital Signs:
Vital Signs
Temp Pulse Resp BP Pulse Ox
98.2 F 72 14 160/78 96
04/20/24 11:00 04/20/24 12:45 04/20/24 12:45 04/20/24 12:00 04/20/24 12:55
I&O
04/19/24 04/20/24 04/21/24
06:59 06:59 06:59
Intake Total 846.5 / 905.8 447.3 / 497.3 250 / 250
Output Total 500 / 500 600 / 600
Balance 346.5 / 405.8 -152.7 / -102.7 250 / 250
Physical Exam
-
General: Well Developed and Well Nourished
HEENT: Normocephalic, Atraumatic and Moist Mucous Membranes
Respiratory: Clear to Auscultation
Cardiac: Regular Rhythm and S1/S2
GI: Soft, Nontender, Nondistended and Normal Bowel Sounds
Musculoskeletal: No Clubbing, No Cyanosis and No Edema
Skin: Warm
Neuro: Awake and Alert; Negative Tremors, Sedated, Slurred Speech or Facial Droop
Psych: Calm
Data Reviewed
-
Total Time Spent with Patient (in minutes): 55
[2024-04-20] MEDS: MAG-TAB SR 84 MG PO (16:34)
[2024-04-20] MEDS: KLOR-CON 40 MEQ PO (16:34)
[2024-04-20] MEDS: LOVENOX 40 MG SC (18:13)
[2024-04-20] MEDS: OFIRMEV 100 IV (19:30)
[2024-04-20] MEDS: BENADRYL 25 MG IV (19:30)
[2024-04-20] MEDS: GAMMAGARD 50 IV (20:00)
[2024-04-20] MEDS: GAMMAGARD 200 IV (21:00)
--- NOTE | 2024-04-20 21:15 | W.PN.NEURO.1 ---
Today's Communication / Plan
-
IVIG day 3 tonight
downgrade
Neuro Assessment/Plan
Assessment
initially suspected acute L MCA territory stroke
patient treated with TNK
EEG background slow
CSF wbc 5, glucose 79, protein 157
consistent with autoimmune encephalitis
pending viral pcr, paraneoplastic antibodies, crypto, lyme, acid fast,
suspecting paraneoplastic etiology ?breast ca, if paraneoplastic this should resolve if the cancer comes out
couldn't send encephalitis panel; no contract with [facility]
if not paraneoplastic, it is most likely a monophasic illness though need for lifelong IVIG is a possibility
Plan
IVIG 25g x5 days
Subjective/Objective
Subjective Data
Date of Service: April 20, 2024
aphasia improving
weaned off precedex, calm
Objective Data
Vital Signs
Temp Pulse Resp BP Pulse Ox
37.6 C 117 19 176/91 94
04/20/24 20:06 04/20/24 21:00 04/20/24 20:00 04/20/24 21:00 04/20/24 20:06
Lab Results
04/19/24 03:37
04/20/24 03:46
PT 13.1 Sec (11.4-14.6) 04/17/24 14:51
INR 0.94 04/17/24 14:51
APTT 24.2 Sec (23.4-35.0) 04/17/24 14:51
Sodium 137 mmol/L (135-145) 04/20/24 03:46
Potassium 3.2 mmol/L (3.5-5.1) L 04/20/24 03:46
BUN 28 mg/dl (7-17) H 04/20/24 03:46
Glucose 107 mg/dl (70-99) H 04/20/24 03:46
Calcium 9.4 mg/dl (8.4-10.2) 04/20/24 03:46
Phosphorus 3.4 mg/dl (2.5-4.5) 04/18/24 05:20
LDL Cholesterol, Calc 118 mg/dl 04/17/24 14:51
Vitamin B12 318 pg/ml (239-931) 04/18/24 05:20
Patient Allergies
labetalol Allergy (Verified 04/16/24 19:36)
See comments
tenecteplase Allergy (Verified 04/16/24 19:36)
See comments
Physical Exam
-
calm
names 'pen', cap/top, straw, glasses.
nonfocal
--- NOTE | 2024-04-20 22:25 | PTCARENOTE ---
Addendum entered by Bartolome Houser RN 04/20/24 22:32:
NIH score of 2, see worklist for documentation. Remains on neurochecks q4hr.
Original Note:
Assumed care of patient at 1900, nursing assessment completed and as documented. Patient remains confused, able to answer orientation questions appropriately with some forgetfulness. Hallucinating at time's. Remains on 1:1, nursing at bedside.
Premedicated with IV Tylenol and IV Benadryl as per order, see MAR for administration. IVIG infusing as per order, see worklist for titrations. Tolerating infusion of IVIG. Patient removed R AC PIV, new line placed. Remains ST on monitor,
hypertensive SBP 150-170's, asymptomatic. Ambulated to bathroom with x1 assist, tolerated ambulation. Bed alarm on, 1:1 at bedside, call sanchez within reach, care ongoing.
[2024-04-21] VITALS (11 sets, daily range): BP systolic 118–188; BP diastolic 79–106; PULSE 107; BMI 26.0
[2024-04-21] MEDS: APRESOLINE 5 MG IV (04:19)
[2024-04-21 04:29] LABS: % Basophils 0.5 % (0-2); % Immature Granulocytes 1.4 % (0-0.5); % Lymphocytes 26.3 % (20.5-51.1); % Monocytes 6.7 % (1.7-9.3); % Neutrophils 64.1 % (42.2-75.2); Absolute Basophils 0.1 10^3/uL (0-0.2); Absolute Eosinophils 0.1 10^3/uL (0-0.7); Absolute Immature Granulocytes 0.2 10^3/uL (0-0.05); Absolute Lymphocytes 2.8 10^3/uL (1.2-3.4); Absolute Monocytes 0.7 10^3/uL (0.1-0.6); Absolute Neutrophils 6.8 10^3/uL (1.4-6.5); Hematocrit 33.5 % (37.0-47.0); Hemoglobin 11.5 g/dL (12.0-16.0); Mean Corp Hgb Conc. 34.3 g/dL (33.0-37.0); Mean Corpuscular Hgb 30.2 pg (27.0-31.0); Mean Corpuscular Volume 87.9 fL (81.0-99.0); Mean Platelet Volume 9.9 fL (7.4-10.4); Nucleated Red Blood Cells % 0 %; Platelet Count 258 10^3/uL (130-400); Red Blood Cell Count 3.81 10^6/uL (4.20-5.40); Red Cell Dist. Width 14.9 % (11.5-14.5); White Blood Cell Count 10.5 10^3/uL (4.8-10.8)
[2024-04-21 07:08] LABS: ALT (SGPT) 32 U/L (0-35); AST (SGOT) 44 U/L (14-36); Albumin 3.5 g/dl (3.5-5.0); Alkaline Phosphatase 285 U/L (38-126); Blood Urea Nitrogen 23 mg/dl (7-17); Calcium 9.1 mg/dl (8.4-10.2); Carbon Dioxide 24 mmol/L (22-30); Chloride 101 mmol/L (98-107); Estimated Creatinine Clearance 56 ml/min; Glucose 86 mg/dl (70-99); Magnesium 1.8 mg/dl (1.6-2.3); Phosphorus 3.5 mg/dl (2.5-4.5); Potassium 3.8 mmol/L (3.5-5.1); Sodium 135 mmol/L (135-145); Total Bilirubin 0.9 mg/dl (0.2-1.3); Total Protein 7.1 g/dl (6.3-8.2); eGFR > 60.00
[2024-04-21] MEDS: ZYPREXA 5 MG PO (07:42)
[2024-04-21] MEDS: VITAMIN B-12 1000 MCG PO (07:42)
[2024-04-21] MEDS: ZESTRIL 40 MG PO (07:42)
--- NOTE | 2024-04-21 09:25 | PTCARENOTE ---
Received pt from mine shifter RN; pt confused and easily redirected; NSR on monitor and VSS; PIV x1 patent; Lungs diminished; positive bowel sounds; pt voiding yellow urine; palpable pulses throughout; no edema noted; 1:1 maintained; see nursing
documentation for further details.
--- NOTE | 2024-04-21 11:33 | PTCARENOTE ---
Pt confused and difficult to reorient; BP 188/106 Dr Hill made aware; NSR on monitor; 1:1 maintained at bedside.
--- NOTE | 2024-04-21 11:44 | W.PN.UPDATE ---
Addendum entered and electronically signed by Efren Hong MD 04/22/24 10:14:
Pt currently lacks capacity for medical decision-making due to encephalopathy.
Original Note:
Update Note
Progress Note Update
Pt seen, chart reviewed. Pt awake, calm, cooperative. Speech rambling, appears to have some continued confusion, possibly responding to visual hallucinations. No agitation. Pt tolerating Zyprexa 5 mg daily- started after severe agitation 04/19.
No EPS evident.
Imp: TME, suspected autoimmune encephalitis, with intermittent hallucinations/agitation
Rec: continue Zyprexa 5 mg daily for now; eventual taper when more stable
will follow
--- NOTE | 2024-04-21 11:51 | CM ---
Patient seen at bedside with 1:1 aide in ICU. Patient confused and called this worker 'alexandrea'. Patient thought that she works with the CM at [facility]. Patient son spoke with CM via phone, Patient has but no secondary insurance. Patient son
stated that he would call back and leave information and CM will provide to admissions. CM will continue to follow for discharge planning needs.
Plan; pending functional status; medical treatment plan.
--- NOTE | 2024-04-21 12:18 | W.PN.HOSP.TC ---
Today's Communication/Plan
-
* Day 4 of IVIG
* Needs breast imaging.
* Start carvedilol.
Assessment / Plan
Assessment / Plan
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
- cont Precedex gtt due to extreme agitation
- initially presumed to be Acute CVA
- stroke alert called 04/17- stat ct- no acute IC abnormalities
- head CT and CTA 04/16 - no acute abnormalities
- s/p TNK 04/16
- cont neuro checks per protocol
- off nicardipine to maintain BP < 180/105.
- MRI-Limited by patient motion. As far as visualized, no convincing restricted diffusion to suggest acute infarct. Mild chronic microvascular white matter ischemic disease.
- Echo-Normal left ventricular size, wall thickness and systolic function. No regional wall motion abnormalities are seen. LV ejection fraction is 55-60% by visual assessment.
- appreciate neuro input
- possible encephalitis picture
- s/p status post LP with WBC of 5 and mildly elevated glucose and protein. Other CSF studies pending
- Status post Eeg
- Patient was started on IVIG per neurology. Plan to complete 5-day course.
- Psych recs-cont w/ zyprexa.
# Facial Swelling
- resolved
- from labetalol vs TNK
- Solumedrol/Pepcid/Benadryl x 1
#Dysphagia
on IDDS6 w/thin liquids
# Hypokalemia
- replete aggressively
- replete prn
# Leukocytosis
resolved
# Hypomagnesia
- repleted
- repeat in am
# Left Breast Mass and bleeding
- patient states she has had a mammogram in the past
- will need follow up as OP
# HTN
-Restart lisinopril. Hydralazine as needed
-Increase dose of lisinopril to 40mg. Start carvedilol
DVT ppx - Lovenox
cont icu level of care while on precedex
d/w with psychiatry
Anticipated Discharge: > 48 hours
Subjective/Interval History
-
Date of Service: April 21, 2024
Continues to be confused.
Objective Data
-
Labs:
Laboratory Results
04/21/24 04/21/24
04:13 05:58
WBC 10.5
Hgb 11.5 L
Hct 33.5 L
Plt Count 258
Sodium Cancelled 135
Potassium Cancelled 3.8
Chloride Cancelled 101
Carbon Dioxide Cancelled 24
BUN Cancelled 23 H
Creatinine Cancelled 0.8
Glucose Cancelled 86
Calcium Cancelled 9.1
Total Bilirubin Cancelled 0.9
AST Cancelled 44 H
ALT Cancelled 32
Alkaline Phosphatase Cancelled 285 H
Vital Signs:
Vital Signs
Temp Pulse Resp BP Pulse Ox
98.1 F 108 29 181/104 96
04/21/24 11:01 04/21/24 09:48 04/21/24 09:48 04/21/24 09:48 04/21/24 09:20
I&O
04/20/24 04/21/24 04/22/24
06:59 06:59 06:59
Intake Total 447.3 / 497.3 500 / 500
Output Total 600 / 600
Balance -152.7 / -102.7 500 / 500
Review of Systems
-
History Source: Patient
All other systems: Reviewed and negative
Neuro: Reports Other (confusion)
[2024-04-21] MEDS: COREG PO ×2 (12:36→13:12)
[2024-04-21] MEDS: VITAMIN B1 PO ×2 (12:36→13:13)
--- NOTE | 2024-04-21 13:13 | PTCARENOTE ---
Coreg ordered by MD; this RN in with patient and educated multiple times on the new medication however pt is refusing medication and becoming agitated; Dr Hill made aware.
[2024-04-21] MEDS: COREG 6.25 MG PO ×2 (13:42→20:40)
[2024-04-21] MEDS: STERILE WATER FOR INJECTION 2.1 ML IM (13:55)
[2024-04-21] MEDS: ZYPREXA 5 MG IM (13:55)
[2024-04-21] MEDS: NSS (PRESERVATIVE FREE) 0.25 ML IV ×2 (14:38→20:45)
[2024-04-21] MEDS: ATIVAN 0.5 MG IV ×2 (14:38→20:44)
--- NOTE | 2024-04-21 15:04 | PTCARENOTE ---
Pt confused and combative with staff, pt trying to leave room and yelling; 1:1 at bedside, 2 RNs and PCT in room with pt; PRN Ativan given; pt resting comfortably; MD updated and ok with transfer to telemetry.
--- NOTE | 2024-04-21 15:52 | PTCARENOTE ---
Report given to 4 maria RN; pt and belongings transferred to new room.
--- NOTE | 2024-04-21 16:12 | W.PN.NEURO.1 ---
Today's Communication / Plan
-
There is reduced clinical clarity regarding encephalitis and therefore may discontinue immunoglobulin at this time and treat symptomatically with the use of antipsychotics
Provide thiamine
Continue vitamin B12 replacement
Agree with continued psychiatric evaluation
Neuro Assessment/Plan
Assessment
Patient presented with acute onset aphasia and right-sided weakness leading to provision of tenecteplase. Subsequent evaluation however failed to demonstrate an intracranial lesion. Patient underwent lumbar puncture during hospitalization which
also failed to demonstrate significant inflammatory changes with the exception of elevated protein
EEG background slow
CSF wbc 5, glucose 79, protein 157
Plan
There is reduced clinical clarity regarding encephalitis and therefore may discontinue immunoglobulin at this time and treat symptomatically with the use of antipsychotics
Provide thiamine
Continue vitamin B12 replacement
Agree with continued psychiatric evaluation
Will follow peripherally
Subjective/Objective
Subjective Data
Date of Service: April 21, 2024
Patient unable to provide her own medical history.
Objective Data
Vital Signs
Temp Pulse Resp BP Pulse Ox
36.7 C 101 20 172/102 94
04/21/24 15:48 04/21/24 15:48 04/21/24 15:48 04/21/24 15:48 04/21/24 15:48
Lab Results
04/21/24 04:13
04/21/24 05:58
PT 13.1 Sec (11.4-14.6) 04/17/24 14:51
INR 0.94 04/17/24 14:51
APTT 24.2 Sec (23.4-35.0) 04/17/24 14:51
Sodium 135 mmol/L (135-145) 04/21/24 05:58
Potassium 3.8 mmol/L (3.5-5.1) 04/21/24 05:58
BUN 23 mg/dl (7-17) H 04/21/24 05:58
Glucose 86 mg/dl (70-99) 04/21/24 05:58
Calcium 9.1 mg/dl (8.4-10.2) 04/21/24 05:58
Phosphorus 3.5 mg/dl (2.5-4.5) 04/21/24 05:58
LDL Cholesterol, Calc 118 mg/dl 04/17/24 14:51
Vitamin B12 318 pg/ml (239-931) 04/18/24 05:20
Patient Allergies
labetalol Allergy (Verified 04/16/24 19:36)
See comments
tenecteplase Allergy (Verified 04/16/24 19:36)
See comments
Review of Systems
-
Unable to obtain full review of systems at this time due to: Dementia
History Source: Patient
All other systems: Reviewed and negative
Physical Exam
-
General: No Apparent Distress and Appears Stated Age
Eyes: Round OU, Green Level Conjunctivae and No Ptosis
HEENT: Anicteric and Moist Mucous Membranes
Neck: Full Range of Motion
Respiratory: No Dyspnea
Cardiac: No JVD
GI: Non-distended
Skin: Unremarkable
Extremities: No Clubbing, No Cyanosis and No Edema
Psych: Negative Intact Judgement/Insight
Extended Neurological Exam
Mood & Affect: Mood Unremarkable and Affect Unremarkable
Attention Span & Concentration: Awake, Alert, Interactive, Unable to Perform 2 Step Request and Other (Unable to follow some one-step requests)
Memory: Unable to Recall Personal History and Other (Gives incorrect answers to questions such as why she presented to this hospital)
Tremor: Hand Tremor Absent and Head Tremor Absent
Speech: Quality Unremarkable and Quantity Unremarkable
Cranial Nerve II: Left Eye: Pupillary Size Unremarkable and Visual Rogel Grossly Intact
Cranial Nerve II: Right Eye: Pupillary Size Unremarkable and Visual Rogel Grossly Intact
Cranial Nerves III, IV, : Extraocular Movement: Extraocular Movement Full in all Directions
Cranial Nerve VII: Facial Symmetry: Normal Facial Symmetry
Cranial Nerve VIII: Hearing: Negative Unremarkable Hearing to Normal Conversational Volume
Cranial Nerve XI: Shoulder Shrug: Unremarkable
Muscle Strength, Overall: Spontaneously Moves (All extremities)
Muscle Bulk & Tone: Bulk Unremarkable and Tone Unremarkable
Touch Sensation: Unremarkable
Coordination: [id number] Testing Unremarkable
Gait & Station: Unable to Assess
Data Reviewed
-
MRI Head: Report Reviewed and Image Reviewed
EEG: Report Reviewed
Labs: Report Reviewed
Reviewed with: Physician, Nurse and Nurse Practioner
Old Records: Summarized
Past History
Past History
ED Past Medical History: None
ED Past Surgical History: None
Social History
Tobacco: Non-smoker
Alcohol: None
Family History
Family History: Other (Reviewed and noncontributory)
Medications
-
Medications:
Generic Name Dose Route Start Last Admin
Trade Name Freq PRN Reason Stop Dose Admin
Acetaminophen 650 mg 04/16/24 16:09 04/19/24 12:55
Acetaminophen 325 Mg Tablet PO 05/14/24 16:08 650 mg
Q4HPRN PRN Administration
ARCE, mild pain, or temp >100.4F
Carvedilol 6.25 mg 04/21/24 13:00 04/21/24 13:42
Carvedilol 6.25 Mg Tablet PO 05/19/24 12:59 6.25 mg
BID MANDY Administration
Cyanocobalamin 1,000 mcg 04/20/24 08:00 04/21/24 07:42
Cyanocobalamin 1,000 Mcg Tablet PO 05/18/24 07:59 1,000 mcg
DAILY MANDY Administration
Enoxaparin Sodium 40 mg 04/17/24 21:00 04/20/24 18:13
Enoxaparin Sodium 40 Mg/0.4 Ml Syringe SC 05/15/24 20:59 40 mg
QPM MANDY Administration
Hydralazine HCl 5 mg 04/18/24 16:18 04/21/24 04:19
Hydralazine 20 Mg/Ml Vial IV 05/16/24 16:17 5 mg
Q4HPRN PRN Administration
SBP >160
Lisinopril 40 mg 04/20/24 08:40 04/21/24 07:42
Lisinopril 10 Mg Tablet PO 05/18/24 07:59 40 mg
DAILY MANDY Administration
Lorazepam 0.5 mg 04/20/24 15:28 04/21/24 14:38
Lorazepam 2 Mg/Ml Vial IV 05/18/24 15:27 0.5 mg
Q8HPRN PRN Administration
agitation despite zyprexa
Olanzapine 5 mg 04/20/24 08:00 04/21/24 07:42
Olanzapine 5 Mg Tablet PO 05/18/24 07:59 5 mg
DAILY MANDY Administration
Olanzapine 5 mg 04/20/24 15:28 04/21/24 13:55
Olanzapine 10 Mg (Powder For Reconstitution) Vial IM 05/18/24 15:27 5 mg
[id number] PRN Administration
agitation
Sodium Chloride 0 flush 04/16/24 16:00
Sodium Chloride 0.9% (Flush) Syringe IV 05/14/24 15:59
PER PROTOCOL MANDY
Sodium Chloride 0.25 ml 04/20/24 15:35 04/21/24 14:38
Nss (Pf) 10 Ml Vial For Ativan 0.5 Mg Dose IV 05/18/24 15:34 0.25 ml
Q8HPRN PRN Administration
IV LORAZEPAM DILUTION
Sterile Water 2.1 ml 04/20/24 15:32 04/21/24 13:55
Sterile Water For Injection 10 Ml Vial IM 05/18/24 15:31 2.1 ml
PRN PRN Administration
[facility] zYPREXA
Thiamine HCl 100 mg 04/21/24 12:00 04/21/24 13:13
Thiamine 100 Mg Tablet PO 04/23/24 08:01 Not Given
DAILY MANDY
--- NOTE | 2024-04-21 16:18 | PTCARENOTE ---
Patient received to 423 accompanied by staff. NIH 4 - patient did not know month or age. Has mild aphasia and slurring. Denies any pain at present. Resting in bed in no distress .
[2024-04-21] MEDS: LOVENOX 40 MG SC (17:13)
--- NOTE | 2024-04-21 19:15 | PTCARENOTE ---
Pt becoming increasingly agitated. Pt trying to leave the room, pt unable to be redirected, no PRN available, Dr. Hill notified. This nurse took a verbal order to change PRN Ativan from Q8 to Q6. Ativan given to pt, 1:1 maintained. Will continue
with current plan.
[2024-04-21] MEDS: TYLENOL 650 MG PO (20:40)
[2024-04-22 00:51] LABS: C.neoformans Antigen Negative (Negative)
[2024-04-22] MEDS: ATIVAN 0.5 MG IV ×3 (03:01→20:31)
[2024-04-22] MEDS: NSS (PRESERVATIVE FREE) 0.25 ML IV (03:02)
[2024-04-22] MEDS: APRESOLINE 5 MG IV (03:02)
[2024-04-22 03:07] VITALS: BP 179/89
[2024-04-22 07:00] VITALS: BP 163/88
[2024-04-22 08:00] VITALS: BMI 27.3
[2024-04-22 08:23] LABS: Hematocrit 36.2 % (37.0-47.0); Hemoglobin 12.3 g/dL (12.0-16.0); Mean Corpuscular Hgb 30.4 pg (27.0-31.0); Mean Corpuscular Volume 89.6 fL (81.0-99.0); Mean Platelet Volume 10.4 fL (7.4-10.4); Platelet Count 285 10^3/uL (130-400); Red Blood Cell Count 4.04 10^6/uL (4.20-5.40); Red Cell Dist. Width 14.6 % (11.5-14.5); White Blood Cell Count 9.4 10^3/uL (4.8-10.8)
[2024-04-22 09:00] LABS: ALT (SGPT) 26 U/L (0-35); AST (SGOT) 36 U/L (14-36); Albumin 3.1 g/dl (3.5-5.0); Alkaline Phosphatase 271 U/L (38-126); Blood Urea Nitrogen 20 mg/dl (7-17); Calcium 9.3 mg/dl (8.4-10.2); Carbon Dioxide 26 mmol/L (22-30); Chloride 103 mmol/L (98-107); Estimated Creatinine Clearance 63 ml/min; Glucose 97 mg/dl (70-99); Magnesium 1.8 mg/dl (1.6-2.3); Potassium 3.6 mmol/L (3.5-5.1); Sodium 136 mmol/L (135-145); Total Bilirubin 0.7 mg/dl (0.2-1.3); Total Protein 6.3 g/dl (6.3-8.2); eGFR > 60.00
[2024-04-22] MEDS: ZYPREXA 5 MG PO (10:33)
[2024-04-22] MEDS: ZESTRIL 40 MG PO (10:33)
[2024-04-22] MEDS: VITAMIN B1 100 MG PO (10:33)
[2024-04-22] MEDS: COREG 6.25 MG PO ×2 (10:33→20:31)
[2024-04-22] MEDS: VITAMIN B-12 1000 MCG PO (10:34)
--- NOTE | 2024-04-22 10:46 | PTCARENOTE ---
Patient continues with confusion, refused breakfast. Did take meds crushed in applesauce . Did not know month or date or her age. Continues with hallucinations . Denies pain or discomfort. 1:1 maintained , pt emotionally labile, goes from
smiling to agitation. No distress at present .
[2024-04-22 10:50] LABS: Syphilis/T. pallidum Ab Reflex Negative (Negative)
[2024-04-22 11:40] VITALS: BP 148/83
[2024-04-22 12:02] LABS: Erythrocyte Sed Rate 36 mm/hour (0-20)
--- NOTE | 2024-04-22 12:06 | W.PN.HOSP.TC ---
Today's Communication/Plan
-
-Breast US
-ESR and CRP follow
-Follow with psychiatry and Neurology recc
-Requested from radiology to reassess the brain MRI
Assessment / Plan
Assessment / Plan
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
- stroke prealert called 04/17-Given TNK 04/16 - stat ct- no acute IC abnormalities
- head CT and CTA 04/16 - no acute abnormalities
- off nicardipine to maintain BP < 180/105.
- appreciate neuro input
- possible encephalitis picture
- s/p status post LP with WBC of 5 and mildly elevated glucose and protein. Other CSF studies pending
- Status post EEG: background slow
- Patient was started on IVIG per neurology. Completed 4 days of IV IG -not planning further due reduced clarity regarding encephalitis.
-Vit B started
-Psych on board - recs-cont w/ zyprexa due agitation
-Pt currently lacks capacity for medical decision-making due to encephalopathy by psychiatry
# Facial Swelling
- resolved
- from labetalol vs TNK
- Solumedrol/Pepcid/Benadryl x 1
#Dysphagia
-on IDDS6 w/thin liquids
# Hypokalemia
- replete aggressively
- replete prn
-Follow CMP
# Leukocytosis
resolved
# Hypomagnesia
- repleted
- Follow mg levels
# Left Breast Mass and bleeding
- patient states she has had a mammogram in the past
-US of breast could not be obtained due agitation
-Planning to have a portable breast US
-The patient might need sedation to proceed it due lacks of capasity
# HTN
-Continue lisinopril. Hydralazine as needed
-Increase dose of lisinopril to 40mg.
- Continue carvedilol carvedilol 6.25 mg BID
-Avoid labetalol due risk of allergy
DVT ppx - Lovenox
Code status DNR
Anticipated Discharge: 24 - 48 hours
Subjective/Interval History
-
Date of Service: April 22, 2024
Patient seen some agitated this morning. Denies any pain and repeats she wants to go work back.
Objective Data
-
Labs:
Laboratory Results
04/22/24
07:37
WBC 9.4
Hgb 12.3
Hct 36.2 L
Plt Count 285
Sodium 136
Potassium 3.6
Chloride 103
Carbon Dioxide 26
BUN 20 H
Creatinine 0.8
Glucose 97
Calcium 9.3
Total Bilirubin 0.7
AST 36
ALT 26
Alkaline Phosphatase 271 H
Vital Signs:
Vital Signs
Temp Pulse Resp BP Pulse Ox
98.5 F 92 16 163/88 94
04/22/24 07:00 04/22/24 07:00 04/22/24 07:00 04/22/24 07:00 04/22/24 07:00
I&O
04/21/24 04/22/24 04/23/24
06:59 06:59 06:59
Intake Total 500 / 500 240 / 240
Balance 500 / 500 240 / 240
Review of Systems
-
History Source: Patient
EENT: Reports No Symptoms Reported
Respiratory: Reports No Symptoms
Cardiac: Reports No Symptoms
Abdomen/GI: Reports No Symptoms
Breast: Reports Mass/Lump (Left breast ) and Other
Genitourinary: Reports No Symptoms
Musculoskeletal: Reports No Symptoms
Skin: Reports No Symptoms
Neuro: Reports Other (Agiatated)
Endocrine: Reports No Symptoms
Physical Exam
-
General: Well Developed, Well Nourished and No Apparent Distress
HEENT: Normocephalic and Atraumatic
Respiratory: Clear to Auscultation
Cardiac: Regular Rhythm and S1/S2
Breast: Other (left breast mass under nipple- Patient did not allow for the exam )
GI: Soft, Nontender and Nondistended
Musculoskeletal: No Clubbing, No Cyanosis and No Edema
Skin: Warm and Dry
Neuro: Awake, Alert and Oriented (Oriented to name and place/ not oriented to time/ have difficulty to answer the questions with irrelevant replies )
Psych: Agitated
--- NOTE | 2024-04-22 14:36 | W.PN.UPDATE ---
Update Note
Progress Note Update
Pt seen, continues on 1:1 supervision. Pt awake, calm, cooperative, resting calmly in bed, states she is trying to go along with her treatment. Speech somewhat rambling, appears to have some continued confusion. No agitation. Pt tolerating
Zyprexa 5 mg daily- started after severe agitation 04/19. No EPS evident.
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
Rec: continue Zyprexa 5 mg daily for now; eventual taper when more stable
will follow
[2024-04-22 15:15] VITALS: BP 131/74
[2024-04-22] MEDS: LOVENOX 40 MG SC (17:42)
[2024-04-22 19:34] VITALS: BP 161/97
[2024-04-22] MEDS: TYLENOL 650 MG PO (20:31)
[2024-04-22 22:55] VITALS: BP 134/76
[2024-04-23] VITALS (8 sets, daily range): BP systolic 102–159; BP diastolic 58–96; O2SAT 97; BMI 26.2
[2024-04-23 04:15] LABS: Lyme Disease DNA by PCR Not Detected; Lyme Source CSF
--- NOTE | 2024-04-23 04:37 | DOWNTIME ---
There was a [employer] Downtime on 04/23/2024 from 0100 to 04/24/2023 at 0420 . Downtime documentation of patient's care, including medication administrations, has been reconciled in the electronic record per guidelines. Refer to the
patient's paper chart under the miscellaneous tab to see printed paper medication records and downtime forms.
[2024-04-23] MEDS: ZESTRIL 40 MG PO (07:21)
[2024-04-23] MEDS: VITAMIN B-12 1000 MCG PO (07:22)
[2024-04-23] MEDS: VITAMIN B1 100 MG PO (07:22)
[2024-04-23] MEDS: COREG 6.25 MG PO (07:22)
[2024-04-23] MEDS: ZYPREXA 5 MG PO (07:22)
[2024-04-23 08:06] LABS: Hematocrit 36.4 % (37.0-47.0); Hemoglobin 12.3 g/dL (12.0-16.0); Mean Corp Hgb Conc. 33.8 g/dL (33.0-37.0); Mean Corpuscular Hgb 30.6 pg (27.0-31.0); Mean Corpuscular Volume 90.5 fL (81.0-99.0); Mean Platelet Volume 10.4 fL (7.4-10.4); Platelet Count 316 10^3/uL (130-400); Red Blood Cell Count 4.02 10^6/uL (4.20-5.40); Red Cell Dist. Width 14.7 % (11.5-14.5); White Blood Cell Count 11.1 10^3/uL (4.8-10.8)
[2024-04-23 08:41] LABS: ALT (SGPT) 26 U/L (0-35); AST (SGOT) 39 U/L (14-36); Albumin 3.4 g/dl (3.5-5.0); Alkaline Phosphatase 286 U/L (38-126); Blood Urea Nitrogen 26 mg/dl (7-17); Calcium 9.7 mg/dl (8.4-10.2); Carbon Dioxide 27 mmol/L (22-30); Chloride 100 mmol/L (98-107); Estimated Creatinine Clearance 45 ml/min; Glucose 83 mg/dl (70-99); Potassium 4.2 mmol/L (3.5-5.1); Sodium 136 mmol/L (135-145); Total Bilirubin 0.8 mg/dl (0.2-1.3); Total Protein 6.4 g/dl (6.3-8.2); eGFR 59.49
--- NOTE | 2024-04-23 09:53 | W.PN.HOSP.TC ---
Today's Communication/Plan
-
Consider breast biopsy
Cont psych meds
Assessment / Plan
Assessment / Plan
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
- stroke prealert called 04/17-Given TNK 04/16 - stat ct- no acute IC abnormalities
- head CT and CTA 04/16 - no acute abnormalities
- off nicardipine to maintain BP < 180/105.
- appreciate neuro input
- s/p status post LP with WBC of 5 and mildly elevated glucose and protein. Other CSF studies pending
- Status post EEG: background slow
- Patient was started on IVIG per neurology. Completed 4 days of IV IG -not planning further due reduced clarity regarding encephalitis.
-Vit B started
-Psych on board - recs-cont w/ zyprexa due agitation
-Pt currently lacks capacity for medical decision-making due to encephalopathy by psychiatry
-NIH 0, pt AAOx3 appears to be doing much better with comprehension of what is going on
-Appreciate pysch to re-eval her level of capacity
# Left Breast Mass and bleeding
- Portable breast US Birads 4 - recommend Biopsy
-Pt currently not agreeable
-The patient might need sedation to proceed it due lacks of capacity
# Facial Swelling
- resolved
- from labetalol vs TNK
- Solumedrol/Pepcid/Benadryl x 1
# HTN
-Continue lisinopril. Hydralazine as needed
-Increase dose of lisinopril to 40mg.
-Continue carvedilol carvedilol 6.25 mg BID
-Avoid labetalol due risk of allergy
#Dysphagia
-on IDDS6 w/thin liquids
# Hypokalemia
- replete aggressively
- replete prn
-Follow CMP
# Leukocytosis
resolved
# Hypomagnesia
- repleted
- Follow mg levels
DVT ppx - Lovenox
Code status DNR
Anticipated Discharge: 24 - 48 hours
Subjective/Interval History
-
Date of Service: April 23, 2024
Objective Data
-
Labs:
Laboratory Results
04/23/24
07:04
WBC 11.1 H
Hgb 12.3
Hct 36.4 L
Plt Count 316
Sodium 136
Potassium 4.2
Chloride 100
Carbon Dioxide 27
BUN 26 H
Creatinine 1.0
Glucose 83
Calcium 9.7
Total Bilirubin 0.8
AST 39 H
ALT 26
Alkaline Phosphatase 286 H
Vital Signs:
Vital Signs
Temp Pulse Resp BP Pulse Ox
98.3 F 88 18 159/96 94
04/23/24 07:21 04/23/24 07:21 04/23/24 07:21 04/23/24 07:21 04/23/24 07:21
I&O
04/22/24 04/23/24 04/24/24
06:59 06:59 06:59
Intake Total 240 / 240 840 / 840 200 / 200
Balance 240 / 240 840 / 840 200 / 200
Review of Systems
-
History Source: Patient
EENT: Reports No Symptoms Reported
Respiratory: Reports No Symptoms
Cardiac: Reports No Symptoms
Abdomen/GI: Reports No Symptoms
Breast: Reports Mass/Lump
Genitourinary: Reports No Symptoms
Neuro: Reports No Symptoms
Physical Exam
-
General: No Apparent Distress and Comfortable
HEENT: Normocephalic
Respiratory: Clear to Auscultation
Cardiac: Regular Rhythm and S1/S2
GI: Soft, Nontender, Nondistended and Normal Bowel Sounds
Musculoskeletal: No Edema
Skin: Warm and Dry
Neuro: AO x 3, No Motor Deficits, Nonfocal/Grossly Intact, Central Nerve's Intact and No Sensory Deficits; Negative Tremors, Slurred Speech or Facial Droop
Psych: Calm
--- NOTE | 2024-04-23 11:33 | W.PN.UPDATE ---
Update Note
Progress Note Update
patient seen chart reviewed. discussed with nursing. mrs burkett was very pleasant. she was oriented to ppt which she was not yesterday according to nsg. she was thought to have encephalitis initially autoimmune and was started on immunoglobulin.
now it is not so clear and immunoglobulin has been dc'ed. b12 being replaced. breast mass being addressed as concern that paraneoplastic phenomenon at play. she is aware of the need for workup. she told me about her life. she has always been a bit
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 she loves people and interacting with others. at this
point can dc one to one as discussed w nursing. patient on zyprexa 5 mg which i would stop if she continues to improve. she has not required prn in the last 48 hours. will follow
--- NOTE | 2024-04-23 16:06 | CM ---
CM reviewed chart, plan for biopsy. Patient taken off 1:1. Per PT evals, recommending SNF vs home PT, will discuss with patient and family. CM will continue to follow for all discharge planning needs.
Plan; home with VN vs SNF when medically stable
[2024-04-23] MEDS: LOVENOX 40 MG SC (17:08)
[2024-04-23] MEDS: TYLENOL 650 MG PO (17:11)
[2024-04-23 17:44] LABS: Paraneoplastic Ab IgG, CSF None Detected (None Detected)
[2024-04-23] MEDS: COREG 12.5 MG PO (20:05)
[2024-04-24 03:00] VITALS: BP 129/74
[2024-04-24 07:28] VITALS: BP 127/77
[2024-04-24 07:44] LABS: Hematocrit 34.1 % (37.0-47.0); Hemoglobin 11.7 g/dL (12.0-16.0); Mean Corp Hgb Conc. 34.3 g/dL (33.0-37.0); Mean Corpuscular Hgb 30.7 pg (27.0-31.0); Mean Corpuscular Volume 89.5 fL (81.0-99.0); Mean Platelet Volume 10.3 fL (7.4-10.4); Platelet Count 320 10^3/uL (130-400); Red Blood Cell Count 3.81 10^6/uL (4.20-5.40); Red Cell Dist. Width 14.6 % (11.5-14.5); White Blood Cell Count 7.7 10^3/uL (4.8-10.8)
[2024-04-24] MEDS: ZYPREXA 5 MG PO (08:06)
[2024-04-24] MEDS: COREG 12.5 MG PO ×2 (08:06→19:46)
[2024-04-24] MEDS: VITAMIN B-12 1000 MCG PO (08:07)
[2024-04-24 08:18] LABS: ALT (SGPT) 30 U/L (0-35); AST (SGOT) 43 U/L (14-36); Albumin 3.2 g/dl (3.5-5.0); Alkaline Phosphatase 340 U/L (38-126); Blood Urea Nitrogen 28 mg/dl (7-17); Calcium 9.4 mg/dl (8.4-10.2); Carbon Dioxide 27 mmol/L (22-30); Chloride 101 mmol/L (98-107); Estimated Creatinine Clearance 50 ml/min; Glucose 100 mg/dl (70-99); Potassium 3.8 mmol/L (3.5-5.1); Sodium 136 mmol/L (135-145); Total Bilirubin 0.6 mg/dl (0.2-1.3); Total Protein 6.1 g/dl (6.3-8.2); eGFR > 60.00
[2024-04-24] MEDS: ZESTRIL PO (09:11)
[2024-04-24] MEDS: ZESTRIL 40 MG PO (09:25)
--- NOTE | 2024-04-24 10:44 | CM ---
CM reviewed chart, patient seen bedside, discussed PT recommendations of SNF vs VN. Patient declining both, reports she would like to return home. Patient agreeable to CM to speak with son, phone call to [facility]. Per [facility], patient is very stubborn,
will likely not agreeable to rehab or home services. Son very concerned about patient returning home, discussed option if not agreeable to rehab to private pay for caregivers, family not able to afford this. Son reports he will be at hospital later
this evening and will discuss short term rehab with patient, will provide patients insurance. CM will continue to follow for all discharge planning needs.
Plan; SNF vs VN
[2024-04-24 11:32] VITALS: BP 104/65
--- NOTE | 2024-04-24 12:09 | W.PN.UPDATE ---
Update Note
Progress Note Update
patient seen chart reviewed. discussed with nursing. patient was resting comfortably and offered no complaints other than wanting to go home. she has refused to have mammogram done at this time. says she will do it on her own and she will
determine when . i tried to explain to her that we still do not understand what caused the vents precipitating admit and it could be related to a possible cancer. i could not get her to bud. i also pointed out that getting the mammogram done may
only be the first step and treatment could then continue as an out pt as is indicated by the result but again no go. warned her too that scheduling an out pt mammogram does not happen instantly. there is often a wait again she refused. she does
seem to be much better in terms of cognition. while of course i disagree with her decision on the mammogram her thoughts do seem focused and she is able to carry on a conversation. she is fully oriented. have cut back zyprexa to 2.5 mg. would dc in
a week if she remains stable cognitively
--- NOTE | 2024-04-24 12:53 | W.PN.HOSP.TC ---
Addendum entered and electronically signed by Vicki Love MD, Resident 04/24/24 15:25:
Correction the correct date for this note is 04/24/2024.
Original Note:
Today's Communication/Plan
-
Psych eval for capacity
Assessment / Plan
Assessment / Plan
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
- stroke prealert called 04/17-Given TNK 04/16 - stat ct- no acute IC abnormalities
- head CT and CTA 04/16 - no acute abnormalities
- off nicardipine to maintain BP < 180/105.
- appreciate neuro input
- s/p status post LP with WBC of 5 and mildly elevated glucose and protein. Other CSF studies pending
- Status post EEG: background slow
- Patient was started on IVIG per neurology. Completed 4 days of IV IG -not planning further due reduced clarity regarding encephalitis.
-Vit B started
-Psych on board - recs-cont to dc Zyprexa if continues to be stable
-Pt currently lacks capacity for medical decision-making due to encephalopathy by psychiatry
-NIH 0, pt AAOx3 appears to be doing much better with comprehension of what is going on
-Appreciate pysch to re-eval her level of capacity
# Left Breast Mass and bleeding
- Portable breast US Birads 4 - recommend Biopsy
-Pt refused mammogram this morning
-The patient might need sedation to proceed it due lacks of capacity
# Facial Swelling
- resolved
- from labetalol vs TNK
- Solumedrol/Pepcid/Benadryl x 1
# HTN
-Continue lisinopril. Hydralazine as needed
-Increase dose of lisinopril to 40mg.
-Continue carvedilol carvedilol 6.25 mg BID
-Avoid labetalol due risk of allergy
#Dysphagia
-on IDDS6 w/thin liquids
# Hypokalemia
- replete aggressively
- replete prn
- Follow CMP
# Leukocytosis
resolved
# Hypomagnesia
- repleted
- Follow mg levels
DVT ppx - Lovenox
Code status DNR
Anticipated Discharge: Within 24 hours
Subjective/Interval History
-
Date of Service: April 23, 2024
Objective Data
-
Labs:
Laboratory Results
04/23/24
07:04
WBC 11.1 H
Hgb 12.3
Hct 36.4 L
Plt Count 316
Sodium 136
Potassium 4.2
Chloride 100
Carbon Dioxide 27
BUN 26 H
Creatinine 1.0
Glucose 83
Calcium 9.7
Total Bilirubin 0.8
AST 39 H
ALT 26
Alkaline Phosphatase 286 H
Vital Signs:
Vital Signs
Temp Pulse Resp BP Pulse Ox
98.8 F 88 18 102/68 93
04/23/24 10:25 04/23/24 10:25 04/23/24 10:25 04/23/24 10:25 04/23/24 10:25
I&O
04/22/24 04/23/24 04/24/24
06:59 06:59 06:59
Intake Total 240 / 240 840 / 840 200 / 200
Balance 240 / 240 840 / 840 200 / 200
Review of Systems
-
History Source: Patient
EENT: Reports No Symptoms Reported
Respiratory: Reports No Symptoms
Cardiac: Reports No Symptoms
Abdomen/GI: Reports No Symptoms
Neuro: Reports No Symptoms
Physical Exam
-
General: Well Developed and Comfortable
HEENT: Normocephalic and PERRLA
Respiratory: Clear to Auscultation
Cardiac: Regular Rhythm and S1/S2
GI: Soft, Nontender, Nondistended and Normal Bowel Sounds
Skin: Warm and Dry
Neuro: AO x 3, No Motor Deficits, Nonfocal/Grossly Intact, Central Nerve's Intact and No Sensory Deficits; Negative Slurred Speech or Facial Droop
Psych: Calm
[2024-04-24 14:27] VITALS: BP 113/64
[2024-04-24] MEDS: LOVENOX 40 MG SC (17:03)
[2024-04-24 19:46] VITALS: BP 146/80
[2024-04-24 23:06] VITALS: BP 129/67
--- NOTE | 2024-04-25 05:26 | PTCARENOTE ---
At the beginning of this selling underwriter's shift, pt was pleasant, cooperative and AAOx3. Starting around 0100 pt made repeated attempts to get OOB independently and asking to leave. Pt stated 'I'm done with the hospital', and then asked to be taken to
stay with her mother. Pt holding her purse and sitting on the edge of the bed stating that she wanted to leave. When asked where she was, patient stated 'this is [facility], isn't it?' Pt reports seeing 'people under my bed', and 'smoke
wafting next to my bed'. Pt reoriented by this selling underwriter, now back in bed after ambulating with assistance to the bathroom. Pt still remains confused but now pleasantly following commands again. Bed in lowest position, call sanchez within reach. Bed
alarm remains in place.
[2024-04-25 07:10] VITALS: BP 165/87
[2024-04-25 08:11] LABS: Hematocrit 33.8 % (37.0-47.0); Hemoglobin 11.8 g/dL (12.0-16.0); Mean Corp Hgb Conc. 34.9 g/dL (33.0-37.0); Mean Corpuscular Hgb 30.6 pg (27.0-31.0); Mean Corpuscular Volume 87.6 fL (81.0-99.0); Mean Platelet Volume 10.2 fL (7.4-10.4); Platelet Count 358 10^3/uL (130-400); Red Blood Cell Count 3.86 10^6/uL (4.20-5.40); Red Cell Dist. Width 14.4 % (11.5-14.5); White Blood Cell Count 8.5 10^3/uL (4.8-10.8)
[2024-04-25] MEDS: COREG 12.5 MG PO ×2 (08:15→19:58)
[2024-04-25] MEDS: ZESTRIL 40 MG PO (08:15)
[2024-04-25] MEDS: VITAMIN B-12 1000 MCG PO (08:16)
[2024-04-25 08:45] LABS: Blood Urea Nitrogen 24 mg/dl (7-17); Calcium 9.8 mg/dl (8.4-10.2); Carbon Dioxide 26 mmol/L (22-30); Chloride 104 mmol/L (98-107); Estimated Creatinine Clearance 50 ml/min; Glucose 109 mg/dl (70-99); Potassium 4.1 mmol/L (3.5-5.1); Sodium 136 mmol/L (135-145); eGFR > 60.00
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
[2024-04-25 15:39] VITALS: BP 142/74
--- NOTE | 2024-04-25 15:45 | W.PN.UPDATE ---
Update Note
Progress Note Update
Patient deemed to lack capacity per psych. Increasing hallucinations. I spoke to the son her POA over the phone and he agreed to further work up to find underlying cause including but not limited to additional imaging of her brain. MRI with and
without contrast to evaluate for mets pending.
[2024-04-25] MEDS: NSS (PRESERVATIVE FREE) 1 ML IV (16:05)
[2024-04-25] MEDS: ATIVAN 2 MG IV (16:06)
[2024-04-25] MEDS: LOVENOX SC (19:16)
[2024-04-25 19:28] VITALS: BP 132/80
[2024-04-25] MEDS: NSS (PRESERVATIVE FREE) 0.5 ML IV (19:56)
[2024-04-25] MEDS: ATIVAN 1 MG IV (19:57)
[2024-04-25 22:58] VITALS: BP 130/68
[2024-04-25] MEDS: ZYPREXA 5 MG PO (22:59)
[2024-04-26 05:58] LABS: Hematocrit 33.7 % (37.0-47.0); Hemoglobin 11.6 g/dL (12.0-16.0); Mean Corp Hgb Conc. 34.4 g/dL (33.0-37.0); Mean Corpuscular Hgb 30.5 pg (27.0-31.0); Mean Corpuscular Volume 88.7 fL (81.0-99.0); Mean Platelet Volume 10.2 fL (7.4-10.4); Platelet Count 340 10^3/uL (130-400); Red Cell Dist. Width 14.2 % (11.5-14.5); White Blood Cell Count 9.2 10^3/uL (4.8-10.8)
--- NOTE | 2024-04-26 06:00 | PTCARENOTE ---
Patient confused at change of shift. Patient was experiencing visual hallucinations. Impulsive and continued getting OOB. Outstanding MRI needed. Contacted [facility] since IV ativan was last given around 1600. One time order for additional IV dose was
ordered and patient was brought down to MRI by RN around 1999. Unfortunately, patient was still unable to lay still for imaging.
Patient was impulsive at times overnight, usually when needing to toilet. Bed alarm in use, increased hourly rounds. Patient was guarded and paranoid about medications and testing. She was able to be compliant though with verbal prompts and
redirection.
LBM documented was 04/21/24. Contacted [facility] for bowel regimen to be ordered.
[2024-04-26 06:27] LABS: Blood Urea Nitrogen 19 mg/dl (7-17); Calcium 9.9 mg/dl (8.4-10.2); Carbon Dioxide 26 mmol/L (22-30); Chloride 105 mmol/L (98-107); Estimated Creatinine Clearance 56 ml/min; Glucose 114 mg/dl (70-99); Potassium 3.8 mmol/L (3.5-5.1); Sodium 136 mmol/L (135-145); eGFR > 60.00
[2024-04-26 07:19] VITALS: BP 169/89
[2024-04-26] MEDS: ZYPREXA 5 MG IM (10:12)
[2024-04-26] MEDS: STERILE WATER FOR INJECTION 2.1 ML IM (10:13)
[2024-04-26] MEDS: SENOKOT 8.6 MG PO ×2 (10:14→20:12)
[2024-04-26] MEDS: ZESTRIL 40 MG PO (10:14)
[2024-04-26] MEDS: VITAMIN B-12 1000 MCG PO (10:14)
[2024-04-26] MEDS: COLACE 100 MG PO ×2 (10:14→20:12)
[2024-04-26] MEDS: COREG 12.5 MG PO ×2 (10:14→20:12)
--- NOTE | 2024-04-26 12:26 | W.PN.HOSP.TC ---
Today's Communication/Plan
-
Continue Zyprexa
Monitor MSE and maintain one-to-one
Will attempt MRI brain with and without contrast and diagnostic mammogram with sedation if needed
Further psych recommendations appreciated
Assessment / Plan
Assessment / Plan
#Toxic Metabolic Encephalopathy
-concern for paraneoplastic/autoimmune encephalitis versus psychiatric disorder versus brain metastases with edema (?)
-stroke prealert called 04/17-Given TNK 04/16; CT head, CTA, MRI brain without contrast, EEG all negative subsequently
-Had LP initially with WBC 5, elevated protein which raise concern for encephalitis; received 4 days of IVIG
-CSF antibodies, viral PCR, bacterial culture from CSF all negative however anti-NMDA not assessed (sent out on 04/25)
-Mental status initially improved however had worsening as of 04/24 into 04/25 with recurrent hallucinations
-Psychiatry and neurology following; currently on Zyprexa nightly and as needed once daily
Plan
-Continue Zyprexa nightly with 1 daily dose QD PRN, monitor QTc
-Follow-up anti-NMDA from initial CSF fluid; trend CBC and temperature
-Attempt MRI brain with and without contrast under sedation to assess for mets/encephalitis findings
-Monitor MSE
-Maintain one-to-one
#Hallucinations
-Unclear if this is related to encephalitis or a more chronic underlying psychiatric process
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
-Currently on Zyprexa as above
-Psychiatry determined she does not have capacity for MDM
#Left Breast Mass and bleeding
-Portable breast US BI-RADS 4 - recommend Biopsy
-Will attempt to have diagnostic bilateral mammogram performed, under sedation if needed
-Will ultimately need biopsy though will try to attempt mammogram for assistance in guiding Bx
-Patient does not have capacity to refuse
#Facial Swelling
-resolved with Solu-Medrol/Pepcid/Benadryl x 1
-from labetalol vs TNK
#Primary HTN
-No known history of hypertensive systemic daily disease
-Home medications included lisinopril 20 mg; started on carvedilol here
-Blood pressure and hemodynamics now improved
-Continue lisinopril 20 mg QD carvedilol 12.5 mg BID
-Avoid labetalol due risk of allergy
DVT pphx: Lovenox
Diet: Regular
Code status: DNR
Disposition: SNF, does not have capacity to refuse
Anticipated Discharge: > 48 hours
Subjective/Interval History
-
Date of Service: April 26, 2024
Seen and examined at the bedside. Yesterday evening noted to have recurrent hallucinations and seeing things that were not there. As of this morning does not seem to be hallucinating. AFVSS
Attempted to have MRI brain with and without contrast performed yesterday with sedation however she did not tolerate. Per MRI she is not a candidate for MRI due to recurrence of inability to tolerate even with sedation.
She appeared tired this morning but denied any acute complaints
Objective Data
-
Labs:
Laboratory Results
04/26/24
05:40
WBC 9.2
Hgb 11.6 L
Hct 33.7 L
Plt Count 340
Sodium 136
Potassium 3.8
Chloride 105
Carbon Dioxide 26
BUN 19 H
Creatinine 0.8
Glucose 114 H
Calcium 9.9
Vital Signs:
Vital Signs
Temp Pulse Resp BP Pulse Ox
98.0 F 76 15 169/89 94
04/26/24 07:19 04/26/24 07:19 04/26/24 07:19 04/26/24 07:19 04/26/24 07:19
I&O
04/25/24 04/26/24 04/27/24
06:59 06:59 06:59
Intake Total 240 / 240 1060 / 1060
Balance 240 / 240 1060 / 1060
Review of Systems
-
History Source: Patient
All other systems: Reviewed and negative
Physical Exam
-
General: Well Developed, Well Nourished, No Apparent Distress and Comfortable
HEENT: Normocephalic, Atraumatic and Moist Mucous Membranes
Respiratory: Clear to Auscultation and Non Labored Respirations
Cardiac: Regular Rhythm and S1/S2; Negative Murmur, Rub or Gallop
Breast: Mass/Lump (Left-sided) and Puckering
GI: Soft, Nontender, Nondistended and Normal Bowel Sounds
Musculoskeletal: No Clubbing, No Cyanosis and No Edema
Skin: Warm, Dry and Normal Turgor; Negative Rash
Neuro: AO x 3 and Nonfocal/Grossly Intact; Negative Tremors
Psych: Calm
Data Reviewed
-
Labs: Labs Reviewed by me and Discussed with Patient
[2024-04-26 15:05] VITALS: BP 142/89
[2024-04-26] MEDS: LOVENOX 40 MG SC (17:25)
[2024-04-26 20:04] VITALS: BP 134/71
[2024-04-26] MEDS: MIRALAX 17 GRAMS PO (20:11)
[2024-04-26] MEDS: TYLENOL 650 MG PO (20:11)
[2024-04-26] MEDS: ZYPREXA 5 MG PO (22:27)
[2024-04-26] MEDS: TUMS CHEWABLE TABLET 200 MG PO (22:28)
[2024-04-26 22:38] VITALS: BP 130/76
[2024-04-26 22:58] LABS: Amphetamines Negative (Negative); Barbiturates Negative (Negative); Benzodiazepines Positive (Negative); Buprenorphine Negative (Negative); Cocaine Negative (Negative); Marijuana Negative (Negative); Methadone Negative (Negative); Methamphetamines Negative (Negative); Opiates Negative (Negative); Phencyclidine Negative (Negative); Tricyclic Antidepressants Negative (Negative)
[2024-04-26 23:45] LABS: Fentanyl, Urine Negative (Negative)
[2024-04-27 07:32] LABS: % Basophils 0.7 % (0-2); % Eosinophils 2.3 % (0-6); % Lymphocytes 33.6 % (20.5-51.1); % Monocytes 9.5 % (1.7-9.3); % Neutrophils 51.9 % (42.2-75.2); Absolute Basophils 0.1 10^3/uL (0-0.2); Absolute Eosinophils 0.2 10^3/uL (0-0.7); Absolute Immature Granulocytes 0.2 10^3/uL (0-0.05); Absolute Monocytes 0.8 10^3/uL (0.1-0.6); Absolute Neutrophils 4.6 10^3/uL (1.4-6.5); Hematocrit 36.1 % (37.0-47.0); Hemoglobin 11.9 g/dL (12.0-16.0); Mean Corpuscular Hgb 29.9 pg (27.0-31.0); Mean Corpuscular Volume 90.7 fL (81.0-99.0); Mean Platelet Volume 10.2 fL (7.4-10.4); Nucleated Red Blood Cells % 0 %; Platelet Count 379 10^3/uL (130-400); Red Blood Cell Count 3.98 10^6/uL (4.20-5.40); Red Cell Dist. Width 14.6 % (11.5-14.5); White Blood Cell Count 8.8 10^3/uL (4.8-10.8)
[2024-04-27 07:35] VITALS: BP 140/78
[2024-04-27 08:11] LABS: Blood Urea Nitrogen 18 mg/dl (7-17); Calcium 9.7 mg/dl (8.4-10.2); Carbon Dioxide 28 mmol/L (22-30); Chloride 106 mmol/L (98-107); Estimated Creatinine Clearance 50 ml/min; Glucose 101 mg/dl (70-99); Magnesium 1.8 mg/dl (1.6-2.3); Potassium 3.9 mmol/L (3.5-5.1); Sodium 138 mmol/L (135-145); eGFR > 60.00
[2024-04-27] MEDS: STERILE WATER FOR INJECTION 2.1 ML IM (09:05)
[2024-04-27] MEDS: ZYPREXA 5 MG IM (09:06)
[2024-04-27] MEDS: COREG 12.5 MG PO ×2 (09:08→19:49)
[2024-04-27] MEDS: SENOKOT 8.6 MG PO (09:08)
[2024-04-27] MEDS: VITAMIN B-12 1000 MCG PO (09:08)
[2024-04-27] MEDS: ZESTRIL 40 MG PO (09:08)
[2024-04-27] MEDS: COLACE 100 MG PO (09:09)
--- NOTE | 2024-04-27 11:22 | W.PN.HOSP.TC ---
Today's Communication/Plan
-
Discuss need for MRI with psychiatry
Continue with Zyprexa nightly standing and daily as needed
Monitor mental status
Eventual diagnostic mammogram and biopsy
Assessment / Plan
Assessment / Plan
#Toxic Metabolic Encephalopathy
-concern for paraneoplastic/autoimmune encephalitis versus psychiatric disorder versus brain metastases with edema (?)
-stroke prealert called 04/17-Given TNK 04/16; CT head, CTA, MRI brain without contrast, EEG all negative subsequently
-Had LP initially with WBC 5, elevated protein which raise concern for encephalitis; received 4 days of IVIG
-CSF antibodies, viral PCR, bacterial culture from CSF all negative however anti-NMDA not assessed (sent out on 04/25)
-Mental status initially improved however had worsening as of 04/24 into 04/25 with recurrent hallucinations
-Psychiatry and neurology following; currently on Zyprexa nightly and as needed once daily
-Seems that Zyprexa has maintained control of her hallucinatory symptoms
-At this juncture would lean towards primary psychotic process, will speak with psychiatry about need for MRI with and without
Plan
-Continue Zyprexa nightly with 1 daily dose QD PRN, monitor QTc
-Follow-up anti-NMDA from initial CSF fluid; trend CBC and temperature
-Consider MRI brain with and without contrast under sedation to assess for mets/encephalitis findings
-Monitor MSE
#Hallucinations
-Unclear if this is related to encephalitis or a more chronic underlying psychiatric process
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
-Currently on Zyprexa as above
-Psychiatry determined she does not have capacity for MDM
#Left Breast Mass and bleeding
-Portable breast US BI-RADS 4 - recommend Biopsy
-Will attempt to have diagnostic bilateral mammogram performed, under sedation if needed
-Will ultimately need biopsy though will try to attempt mammogram for assistance in guiding Bx
-Patient does not have capacity to refuse
#Facial Swelling
-resolved with Solu-Medrol/Pepcid/Benadryl x 1
-from labetalol vs TNK
#Primary HTN
-No known history of hypertensive systemic daily disease
-Home medications included lisinopril 20 mg; started on carvedilol here
-Blood pressure and hemodynamics now improved
-Continue lisinopril 20 mg QD carvedilol 12.5 mg BID
-Avoid labetalol due risk of allergy
DVT pphx: Lovenox
Diet: Regular
Code status: DNR
Disposition: SNF, does not have capacity to refuse
Anticipated Discharge: > 48 hours
Subjective/Interval History
-
Date of Service: April 27, 2024
Seen and examined at the bedside. No acute events reported overnight. AFVSS this morning.
Patient seems oriented, no signs of hallucinations. She denied seeing anything that was not there overnight
Denies any acute complaints this morning, other than wanting to go home
Objective Data
-
Labs:
Laboratory Results
04/27/24
06:56
WBC 8.8
Hgb 11.9 L
Hct 36.1 L
Plt Count 379
Sodium 138
Potassium 3.9
Chloride 106
Carbon Dioxide 28
BUN 18 H
Creatinine 0.9
Glucose 101 H
Calcium 9.7
Vital Signs:
Vital Signs
Temp Pulse Resp BP Pulse Ox
98.1 F 70 15 140/78 98
04/27/24 07:35 04/27/24 09:08 04/27/24 07:35 04/27/24 09:08 04/27/24 07:35
I&O
04/26/24 04/27/24 04/28/24
06:59 06:59 06:59
Intake Total 1060 / 1060 550 / 550 480 / 480
Balance 1060 / 1060 550 / 550 480 / 480
Review of Systems
-
History Source: Patient
All other systems: Reviewed and negative
Physical Exam
-
General: Well Developed, Well Nourished and No Apparent Distress
HEENT: Normocephalic, Atraumatic and Moist Mucous Membranes
Respiratory: Clear to Auscultation and Non Labored Respirations
Cardiac: Regular Rhythm and S1/S2
GI: Soft, Nontender, Nondistended and Normal Bowel Sounds
Musculoskeletal: No Clubbing, No Cyanosis and No Edema
Skin: Warm and Dry; Negative Rash
Neuro: AO x 3 and Nonfocal/Grossly Intact; Negative Tremors
Psych: Calm and Other (No signs of responding to internal stimuli)
Data Reviewed
-
MRI: Discussed with Physician (Psychiatrist)
Labs: Labs Reviewed by me, Discussed with Physician (Psychiatrist) and Discussed with Patient
--- NOTE | 2024-04-27 12:59 | W.PN.UPDATE ---
Update Note
Progress Note Update
73 y/o woman who was admitted for stroke like symptoms, treated with TNK and developed psychotic symptoms with concerns that this may have been due to paraneoplastic syndrome from breast cancer, mets or underlying psychiatric disorder.
Previously, Dr. Stover did not feel she had capacity for medical decisions.
She is alert and eating lunch. Oriented. Speech is clear. Denies complaints of headaches, dizziness or vertigo. Cognitively intact. Reports she did have a visual illusion of a foot/high heal in her lsat room, but it was the TV mount. She also
thought there was someone under her bed, but no longer believes this was true. She is not paranoid now and not hallucinating. Eager to go home and resentful of her older son making decisions for her as she feels competent for living her own life.
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 Drives without difficulty. Says she will follow-up regarding her breast mass, but does not seem to be in a [place] to do this (will go to PCP first).
She is being treated with Zyprexa. Was getting 5 mg. HS at 5 mg. IM in morning. She likes the medicine as she sleeps well with it whereas she was not sleeping as soundly at home. No adverse effects.
I would encourage her to be continued on Zyprexa 5 mg. HS.
I do not see a need for the brain MRI which she does not want to have either. All other VOLCANOLOGY TEACHER studies are negative.
Psychiatry will sign off. Re-consult if needed.
[2024-04-27 15:04] VITALS: BP 128/75
[2024-04-27] MEDS: LOVENOX 40 MG SC (18:05)
[2024-04-27] MEDS: COLACE PO (19:50)
[2024-04-27] MEDS: SENOKOT PO (19:50)
[2024-04-27] MEDS: TUMS CHEWABLE TABLET 200 MG PO (20:10)
[2024-04-27] MEDS: ZYPREXA 5 MG PO (21:00)
[2024-04-27 23:10] VITALS: BP 109/60
[2024-04-28 07:24] VITALS: BP 140/76
[2024-04-28] MEDS: STERILE WATER FOR INJECTION IM (08:30)
[2024-04-28] MEDS: ZESTRIL 40 MG PO (08:31)
[2024-04-28] MEDS: VITAMIN B-12 1000 MCG PO (08:31)
[2024-04-28] MEDS: SENOKOT 8.6 MG PO (08:31)
[2024-04-28] MEDS: COREG 12.5 MG PO ×2 (08:31→20:53)
[2024-04-28] MEDS: COLACE 100 MG PO (08:31)
[2024-04-28 08:40] LABS: Hematocrit 34.2 % (37.0-47.0); Mean Corp Hgb Conc. 35.1 g/dL (33.0-37.0); Mean Corpuscular Hgb 30.6 pg (27.0-31.0); Mean Corpuscular Volume 87.2 fL (81.0-99.0); Mean Platelet Volume 10.4 fL (7.4-10.4); Platelet Count 353 10^3/uL (130-400); Red Blood Cell Count 3.92 10^6/uL (4.20-5.40); Red Cell Dist. Width 14.4 % (11.5-14.5)
[2024-04-28 09:13] LABS: ALT (SGPT) 24 U/L (0-35); AST (SGOT) 33 U/L (14-36); Albumin 3.2 g/dl (3.5-5.0); Alkaline Phosphatase 293 U/L (38-126); Calcium 10.1 mg/dl (8.4-10.2); Chloride 106 mmol/L (98-107); Estimated Creatinine Clearance 50 ml/min; Potassium 4.2 mmol/L (3.5-5.1); Sodium 136 mmol/L (135-145); Total Bilirubin 0.6 mg/dl (0.2-1.3); Total Protein 6.1 g/dl (6.3-8.2); eGFR > 60.00
[2024-04-28 09:14] LABS: Carbon Dioxide 23 mmol/L (22-30); Glucose 100 mg/dl (70-99)
[2024-04-28 09:25] LABS: Blood Urea Nitrogen 20 mg/dl (7-17)
--- NOTE | 2024-04-28 12:58 | W.PN.HOSP.TC ---
Today's Communication/Plan
-
-Patient was seen by psychiatry, noted has mental capacity to decide her medical treatment
-Patient refuses having any further studies including brain MRI
-Her son called and updated about her mother`s condition
-Planning to discharge tomorrow
Assessment / Plan
Assessment / Plan
#Toxic Metabolic Encephalopathy with uncertain etiology
-Possible having paraneoplastic/autoimmune encephalitis vs psychiatric disorder vs brain metastases with edema (?)
-Had a stroke prealert called 04/17-Given TNK 04/16; CT head, CTA, MRI brain without contrast, EEG all negative subsequently
-Had LP initially with WBC 5, elevated protein which raise concern for encephalitis; received 4 days of IVIG
-CSF antibodies, viral PCR, bacterial culture from CSF all negative/ follow for anti-NMDA results (sent out on 04/25)
-Mental status initially improved however had worsening as of 04/24 into 04/25 with recurrent hallucinations
-Followed up by Psychiatry and neurology
-Zyprexa has been helping to control of her hallucinatory symptoms and agitation- recommenced to continue 5 mg at bedtime per psychiatry
-Patient does not have a PMH of psychiatric issues
-Patient refuses having cranial MRI with contrast on 04/28/24 -neurology squires not consider it is needed.
-Seen by psychiatry again and reported patient`s capacity is intact on 04/28/24
#Hallucinations and agitations
-Continue Zyprexa at bedtime- monitor QTc prolongation
-Can be secondary to encephalitis or a previous underlying psychiatric problem
-Psychiatry determined she has the capacity for MDM on 04/28/24
#Left Breast Mass
-Portable breast US BI-RADS 4 - recommend Biopsy- patient refuses having biopsy
-Patient refuses having mammogram
-Patient has the capacity to decide and willing to have further studies at outpatient setting
#Facial Swelling
-resolved with Solu-Medrol/Pepcid/Benadryl x 1
-from labetalol vs TNK
#Primary HTN
-Unclear hx of having HTN and being on lisinopril before the admission
-Home medications included lisinopril 20 mg; started on carvedilol at hospital
-BP was successfully under control with Carvedilol 12.5 mg BID and lisinopril 40 mg
-Avoid labetalol due risk of allergy
DVT pphx: Lovenox
Diet: Regular
Code status: DNR
Disposition: Home, patient willing to go back her home
Anticipated Discharge: 24 - 48 hours
Subjective/Interval History
-
Date of Service: April 28, 2024
Patient was seen more oriented this morning. Denies any pain or any problems. Discussed having a MRI with contrast can be helpful and having further studies for her breast mass are needed. She stated she understand all the explanations and not
willing any studies.
Objective Data
-
Labs:
Laboratory Results
04/28/24
08:17
WBC 9.0
Hgb 12.0
Hct 34.2 L
Plt Count 353
Sodium 136
Potassium 4.2
Chloride 106
Carbon Dioxide 23
BUN 20 H
Creatinine 0.9
Glucose 100 H
Calcium 10.1
Total Bilirubin 0.6
AST 33
ALT 24
Alkaline Phosphatase 293 H
Vital Signs:
Vital Signs
Temp Pulse Resp BP Pulse Ox
99 F 79 16 140/76 93
04/28/24 07:24 04/28/24 07:24 04/28/24 07:24 04/28/24 07:24 04/28/24 07:24
I&O
04/27/24 04/28/24 04/29/24
06:59 06:59 06:59
Intake Total 550 / 550 480 / 480
Balance 550 / 550 480 / 480
Review of Systems
-
History Source: Patient
Constitutional: Reports No Symptoms
EENT: Reports No Symptoms Reported
Respiratory: Reports No Symptoms
Cardiac: Reports No Symptoms
Abdomen/GI: Reports No Symptoms
Breast: Reports Mass/Lump (on left breast )
Genitourinary: Reports No Symptoms
Musculoskeletal: Reports No Symptoms
Skin: Reports No Symptoms
Neuro: Reports No Symptoms
Endocrine: Reports No Symptoms
Physical Exam
-
General: Well Developed, Well Nourished, No Apparent Distress and Comfortable
HEENT: Normocephalic and Atraumatic
Respiratory: Clear to Auscultation
Cardiac: Regular Rhythm and S1/S2
Breast: Other (patient did not accept to be examined )
GI: Soft, Nontender, Nondistended and Normal Bowel Sounds
Musculoskeletal: No Clubbing, No Cyanosis and No Edema
Skin: Warm
--- NOTE | 2024-04-28 13:42 | W.PN.UPDATE ---
Update Note
Progress Note Update
Pt seen, chart reviewed. Psychiatry asked to re-assess capacity. Pt previously felt to lack capacity due to confusion and hallucinations. Dr Ross found pt to be cognitively intact yesterday. Pt seen, resting in bed in not acute distress. Pt is
alert, appears fully oriented. She is clearly stating her wish to go home and follow up for her breast mass as an outpatient, states she has a provider. Pt states her son is not in charge of her decisions, and she is aware there was a statement
that she is 'lying'. Pt denies any further hallucinations and shows no overt signs of psychosis. Pt is noted with no prior psych history.
Imp: TME, suspected autoimmune encephalitis, with intermittent hallucinations/agitation, resolved. Capacity appears intact, based on pt's presentation yesterday and today
Rec: continue Zyprexa 5 mg HS for now, with eventual taper- off
will follow
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
[2024-04-28 15:09] VITALS: BP 130/73
[2024-04-28] MEDS: DULCOLAX 10 MG RECTAL (15:29)
[2024-04-28 16:09] VITALS: BP 139/87; PULSE 75; O2SAT 95
--- NOTE | 2024-04-28 16:27 | W.PN.NEURO.1 ---
Today's Communication / Plan
-
.
Subjective/Objective
Subjective Data
Date of Service: April 28, 2024
Neurology Consultation Note.
HPI: This is a 73-year-old woman who presented to [facility] on 04/16/2024 with aphasia/right sided weakness.
ER VS�[id number]/105-210/130, afebrile.
she was treated with IV TNK and developed an acute psychosis requiring Precedex.
Workup included brain MRI without ge (04/17/2024) that showed no acute infarcts (motion limited study), elevated protein and glucose on CSF studies and lack of epileptiform abnormalities on EEG.
The patient was found to have L breast mass. She was treated with IVIG. CSF paraneoplastic panel was negative.
Patient's mental status has significantly improved during the hospitalization. She has been treated with olanzapine.
According to the patient she developed sudden onset difficulty speaking that occurred while at work. The episode lasted approximately '6 hours '. The patient reports being able to comprehend words but was unable to articulate them. This was a
first-time occurrence for the patient, with no prior history of similar episodes. The supervisor die casting at the patient's workplace called an ambulance, resulting in the patient's admission to the hospital. The patient denies any current
headaches, changes in vision, alterations in strength or sensation, and reports no pain or other bothersome symptoms at present.
The patient denies having headaches, change in vision, strength, sensation or hallucinations.
According to patient's son, her mother has been exhibiting angry and abusive behavior for many years. Recently, she experienced hallucinations, reporting people hiding under beds and seeing objects floating in the air. The patient has been
neglecting her self-care and has not sought medical attention in approximately 35 years.
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 Additionally, the patient has been exhibiting
poor judgment, reportedly giving her grandson $120 daily, which he uses for drugs.
The patient has a family history of dementia, with her mother developing symptoms around age 70 and also having Parkinson's disease. The patient's father did not have dementia but of esophageal cancer at age 74 or 75.
PDMP: none
ua tox(04/26/24 22:38 )-positive for benzodiazepines(Lorazepam given on 04/25/24 19:34
LDL�118, A1c�6.0, CRP�78.6, ESR�36 normal free T4,
CTA head/neck-no hemodynamically significant stenosis
PMH: No prior medical care, breast mass, esophageal diverticulum
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
All: Labetalol
FH: mother-Parkinson disease, dementia in her 70s, father-esophageal CA
ROS: Constitutional: Negative. Negative for chills, fever and unexpected weight change.
HENT: Negative for ear pain, hearing loss, tinnitus and trouble swallowing.
Eyes: Negative. Negative for photophobia, pain and visual disturbance.
Respiratory: Negative for cough, choking and shortness of breath.
Cardiovascular: Negative for chest pain, palpitations and leg swelling.
Gastrointestinal: Negative for abdominal pain and vomiting.
Endocrine: Negative. Negative for cold intolerance.
Genitourinary: Negative for dysuria, flank pain and urgency.
Musculoskeletal: Negative for back pain, gait problem, neck pain and neck stiffness.
Skin: Negative for rash.
Allergic/Immunologic: Negative. Negative for immunocompromised state.
Neurological: Positive for intermittent confusion
Psychiatric/Behavioral: Negative for behavioral problems, hallucinations.
General: Well developed. In no acute distress.
Cardio: Regular rate and rhythm without murmur. Extremities are without cyanosis or edema.
Neuro:
Mental Status: Alert, oriented to person, place, Sunday, April 28 2024'. Impaired attention. Follows simple requests consistently. Fluent. Unable to do serial sevens. No hemineglect.
Cranial Nerves: Pupils are equally round and reactive to light. EOMs full. Visual fam full to confrontation. No ptosis. No nystagmus. V1-V3 intact to light touch and pinprick bilaterally, symmetric. Face symmetric. Normal hearing AU. The
palate elevated well. SCMs and traps 5/5. Tongue midline. No dysarthria.
Motor: Normal bulk and tone. No pronator or arm drift. Strength 5/5 throughout. No clonus.
Reflexes: Negative grasp bilaterally
Sensory: Normal vibration at the ankles.
Coordination: No dysmetria or tremor.
Gait: deferred
Assessment and Plan:
I. TIA.
II. Hypertensive emergency, resolved
III. Multifactorial encephalopathy (vascular, neurodegenerative)
IV. Mood DO, NOS
V. Family history of dementia
VII. L breast mass
-No driving or making any financial decisions
-Continue DAPT for 3 weeks
-Lipitor 40 mg nightly
-Outpatient cardiology follow-up (ILR)
-Outpatient neuropsychological evaluation and cEEG
-licensed clinical social worker follow-up
-Oncology/surgery consult (can be done as outpatient)
-Please recall neurology service with any questions or concerns
I personally reviewed all radiology and labs along with past medical records pertinent to current medical problems. Total time spent in patient care is 40 minutes.
Thank you for allowing us to participate in the care of this patient. Please do not hesitate to contact us with any questions or concerns.
Objective Data
Vital Signs
Temp Pulse Resp BP Pulse Ox
36.8 C 80 14 130/73 93
04/28/24 15:09 04/28/24 15:09 04/28/24 15:09 04/28/24 15:09 04/28/24 15:09
Lab Results
04/28/24 08:17
04/28/24 08:17
PT 13.1 Sec (11.4-14.6) 04/17/24 14:51
INR 0.94 04/17/24 14:51
APTT 24.2 Sec (23.4-35.0) 04/17/24 14:51
Sodium 136 mmol/L (135-145) 04/28/24 08:17
Potassium 4.2 mmol/L (3.5-5.1) 04/28/24 08:17
BUN 20 mg/dl (7-17) H 04/28/24 08:17
Glucose 100 mg/dl (70-99) H 04/28/24 08:17
Calcium 10.1 mg/dl (8.4-10.2) 04/28/24 08:17
Phosphorus 3.5 mg/dl (2.5-4.5) 04/21/24 05:58
LDL Cholesterol, Calc 118 mg/dl 04/17/24 14:51
Vitamin B12 318 pg/ml (239-931) 04/18/24 05:20
Ur Buprenorphine Negative (Negative) 04/26/24 22:38
Patient Allergies
labetalol Allergy (Verified 04/16/24 19:36)
See comments
tenecteplase Allergy (Verified 04/16/24 19:36)
See comments
Vital Signs and Labs
-
Vital Signs and Labs:
Vital Signs
Temp Pulse Resp BP Pulse Ox
36.8 C 80 14 130/73 93
04/28/24 15:09 04/28/24 15:09 04/28/24 15:09 04/28/24 15:09 04/28/24 15:09
Lab Results
04/28/24 08:17
04/28/24 08:17
PT 13.1 Sec (11.4-14.6) 04/17/24 14:51
INR 0.94 04/17/24 14:51
APTT 24.2 Sec (23.4-35.0) 04/17/24 14:51
Sodium 136 mmol/L (135-145) 04/28/24 08:17
Potassium 4.2 mmol/L (3.5-5.1) 04/28/24 08:17
BUN 20 mg/dl (7-17) H 04/28/24 08:17
Glucose 100 mg/dl (70-99) H 04/28/24 08:17
Calcium 10.1 mg/dl (8.4-10.2) 04/28/24 08:17
Phosphorus 3.5 mg/dl (2.5-4.5) 04/21/24 05:58
LDL Cholesterol, Calc 118 mg/dl 04/17/24 14:51
Vitamin B12 318 pg/ml (239-931) 04/18/24 05:20
Ur Buprenorphine Negative (Negative) 04/26/24 22:38
Medications
-
Medications:
Generic Name Dose Route Start Last Admin
Trade Name Freq PRN Reason Stop Dose Admin
Acetaminophen 650 mg 04/16/24 16:09 04/26/24 20:11
Acetaminophen 325 Mg Tablet PO 05/14/24 16:08 650 mg
Q4HPRN PRN Administration
ARCE, mild pain, or temp >100.4F
Carvedilol 12.5 mg 04/23/24 20:00 04/28/24 08:31
Carvedilol 12.5 Mg Tablet PO 05/21/24 19:59 12.5 mg
BID MANDY Administration
Cyanocobalamin 1,000 mcg 04/20/24 08:00 04/28/24 08:31
Cyanocobalamin 1,000 Mcg Tablet PO 05/18/24 07:59 1,000 mcg
DAILY MANDY Administration
Docusate Sodium 100 mg 04/26/24 08:00 04/28/24 08:31
Docusate Sodium 100 Mg Capsule PO 05/24/24 07:59 100 mg
BID MANDY Administration
Enoxaparin Sodium 40 mg 04/17/24 21:00 04/27/24 18:05
Enoxaparin Sodium 40 Mg/0.4 Ml Syringe SC 05/15/24 20:59 40 mg
QPM MANDY Administration
Hydralazine HCl 5 mg 04/18/24 16:18 04/22/24 03:02
Hydralazine 20 Mg/Ml Vial IV 05/16/24 16:17 5 mg
Q4HPRN PRN Administration
SBP >160
Lisinopril 40 mg 04/24/24 09:00 04/28/24 08:31
Lisinopril 20 Mg Tablet PO 05/22/24 08:59 40 mg
DAILY MANDY Administration
Lorazepam 0.5 mg 04/21/24 20:38 04/22/24 20:31
Lorazepam 2 Mg/Ml Vial IV 05/19/24 20:37 0.5 mg
Q6HPRN PRN Administration
agitation despite zyprexa
Olanzapine 5 mg 04/25/24 22:00 04/27/24 21:00
Olanzapine 5 Mg Tablet PO 05/23/24 21:59 5 mg
HS MANDY Administration
Olanzapine 5 mg 04/28/24 08:00
Olanzapine 10 Mg (Powder For Reconstitution) Vial IM 05/26/24 07:59
DAILY PRN
agitation
Polyethylene Glycol 17 grams 04/26/24 01:14 04/26/24 20:11
Polyethylene Glycol Powder 17 Grams Packet PO 05/24/24 01:13 17 grams
DAILYPRN PRN Administration
constipation
Sennosides 8.6 mg 04/26/24 08:00 04/28/24 08:31
Sennosides (Senokot) 8.6 Mg Tablet PO 05/24/24 07:59 8.6 mg
BID MANDY Administration
Sodium Chloride 0 flush 04/16/24 16:00
Sodium Chloride 0.9% (Flush) Syringe IV 05/14/24 15:59
PER PROTOCOL MANDY
Sodium Chloride 0.25 ml 04/21/24 20:38 04/22/24 03:02
Nss (Pf) 10 Ml Vial For Ativan 0.5 Mg Dose IV 05/19/24 20:37 0.25 ml
Q6HPRN PRN Administration
IV LORAZEPAM DILUTION
Sterile Water 2.1 ml 04/26/24 08:00 04/28/24 08:30
Sterile Water For Injection 10 Ml Vial IM 05/24/24 07:59 Not Given
DAILY MANDY
Home Medications
-
Home Medications
naproxen sodium 220 mg tablet (Aleve) 220 mg PO BIDPRN PRN mildpain 04/16/24
lisinopril 20 mg tablet 40 mg (2 x 20 mg) PO DAILY Blood pressure #90 tabs 04/28/24
olanzapine 5 mg tablet 5 mg PO HS Neurological Condition #60 tabs 04/28/24
[2024-04-28] MEDS: LIPITOR 40 MG PO (17:29)
[2024-04-28] MEDS: LOVENOX 40 MG SC (17:29)
[2024-04-28] MEDS: SENOKOT PO ×2 (20:53→21:13)
[2024-04-28] MEDS: COLACE PO ×2 (20:54→21:12)
[2024-04-28] MEDS: ZYPREXA 5 MG PO (20:54)
[2024-04-28 23:10] VITALS: BP 134/80
[2024-04-29 07:55] VITALS: BP 149/90
[2024-04-29] MEDS: COLACE PO (08:17)
[2024-04-29] MEDS: STERILE WATER FOR INJECTION IM (08:18)
[2024-04-29] MEDS: PLAVIX 75 MG PO (08:18)
[2024-04-29] MEDS: SENOKOT PO (08:18)
[2024-04-29] MEDS: VITAMIN B-12 1000 MCG PO (08:18)
[2024-04-29] MEDS: ZESTRIL 40 MG PO (08:21)
[2024-04-29] MEDS: COREG 12.5 MG PO (08:22)
--- NOTE | 2024-04-29 08:37 | W.PN.HOSP.TC ---
Addendum entered and electronically signed by Lan Garcia MD 04/29/24 16:06:
TIA
Evaluated by neurology recommended DAPT x 21 days along with Lipitor 40 mg
Outpatient cardiology follow-up for Holter monitor
Outpatient neuropsychological evaluation
Breast cancer
Will need outpatient oncology breast surgery follow-up
TME
Resolved
Per psychiatry has capacity
Per psychiatry outpatient PCP/psychiatric follow-up continue Zyprexa 5 mg at bedtime
S/p LP negative studies
Refused any further MRIs
More than 30 minutes spent in discharge including
Final examination of the patient
Summarizing hospital stay
Instructions for continuing care to all relevant caregivers
Preparation of discharge records, prescriptions, and referral forms
Total time spent (in minutes): 33mins
Original Note:
Today's Communication/Plan
-
Planning to discharge today
Assessment / Plan
Assessment / Plan
# Multifactorial encephalopathy (vascular, neurodegenerative)
-Appreciate for Neurology recommendation on 04/28/24 before discharge which shared with her son Shon
(No driving or making any financial decisions/ Continue DAPT for 3 weeks/ Lipitor 40 mg nightly/Outpatient cardiology follow-up (ILR)/Outpatient neuropsychological evaluation and cEEG/rubber and plastics worker follow-up/Oncology/surgery follow up at outpatient
setting)
-Possible having paraneoplastic/autoimmune encephalitis vs psychiatric disorder vs brain metastases with edema vs
-Had a stroke prealert called 04/17-Given TNK 04/16; CT head, CTA, MRI brain without contrast, EEG all negative subsequently
-Had LP initially with WBC 5, elevated protein which raise concern for encephalitis; received 4 days of IVIG
-CSF antibodies, viral PCR, bacterial culture from CSF all negative/ follow for anti-NMDA results (sent out on 04/25) at outpatient setting with Neurology
-Mental status initially improved however had worsening as of 04/24 into 04/25 with recurrent hallucinations
-Appreciate for Psychiatry and neurology follow ups
-Zyprexa has been helping to control of her hallucinatory symptoms and agitation- recommenced to continue 5 mg at bedtime per psychiatry
-Patient does not have a PMH of psychiatric issues
-Patient refuses having cranial MRI with contrast on 04/28/24 -neurology squires not consider it is needed.
-Seen by psychiatry again and reported patient`s capacity is intact on 04/28/24
#Hallucinations and agitations
-Resolved
-Continue Zyprexa at bedtime- monitor QTc prolongation
-Can be secondary to encephalitis or a previous underlying psychiatric problem
-Psychiatry determined she has the capacity for MDM on 04/28/24
#Left Breast Mass
-Portable breast US BI-RADS 4 - recommend Biopsy- patient refuses having biopsy
-Patient refuses having mammogram
-Patient has the capacity to decide and willing to have further studies at outpatient setting
#Facial Swelling
-resolved with Solu-Medrol/Pepcid/Benadryl x 1
-from labetalol vs TNK
#Primary HTN
-Unclear hx of having HTN and being on lisinopril before the admission
-Home medications included lisinopril 20 mg; started on carvedilol at hospital
-BP was successfully under control with Carvedilol 12.5 mg BID and lisinopril 40 mg
-Avoid labetalol due risk of allergy
DVT pphx: Lovenox
Diet: Regular
Code status: DNR
Disposition: Home, patient willing to go back her home
Anticipated Discharge: Today
Subjective/Interval History
-
Date of Service: April 29, 2024
Patient reports no complaining and reports feeling good this am. She stated that she is aware that she can not drive until seen by a neurologist. She is planning to have visits with Neurology, Psychiatry, General Surgery and a PCP at outpatient
setting.
Objective Data
-
Vital Signs:
Vital Signs
Temp Pulse Resp BP Pulse Ox
98.0 F 73 24 149/90 94
04/29/24 07:55 04/29/24 07:55 04/29/24 07:55 04/29/24 07:55 04/29/24 07:55
I&O
04/28/24 04/29/24 04/30/24
06:59 06:59 06:59
Intake Total 480 / 480 525 / 525
Balance 480 / 480 525 / 525
Review of Systems
-
History Source: Patient
EENT: Reports No Symptoms Reported
Respiratory: Reports No Symptoms
Cardiac: Reports No Symptoms
Abdomen/GI: Reports No Symptoms
Breast: Reports Mass/Lump
Genitourinary: Reports No Symptoms
Musculoskeletal: Reports No Symptoms
Skin: Reports No Symptoms
Neuro: Reports No Symptoms
Endocrine: Reports No Symptoms
Physical Exam
-
General: Well Developed, Well Nourished, No Apparent Distress and Comfortable
HEENT: Normocephalic and Atraumatic
Respiratory: Clear to Auscultation
Cardiac: Regular Rhythm and S1/S2
GI: Soft, Nontender and Nondistended
Musculoskeletal: No Clubbing, No Cyanosis and No Edema
Skin: Warm
Neuro: Awake, Alert, Oriented and Nonfocal/Grossly Intact
Psych: Calm
--- NOTE | 2024-04-29 09:55 | CM ---
Addendum entered by Aileen Solis 04/29/24 14:33:
Patient seen bedside, upset regarding situation but aware son will drop off phone and purse and patient will Uber home. Patient reports she is familiar with [employer]. Patient requesting additional pants/underwear. CM discussed with Nurse. Update to
Nubia from [facility] that patient is discharging home.
Addendum entered by Aileen Solis 04/29/24 12:42:
CM spoke with Nubia, faxed requested clinical information to [facility], aware patient may discharge home today. CM spoke with patients son, Shon, per son, he is working and will not be transporting patient home. Per son, he will go to patients home
after work as home is currently padlocked, will unlock so patient can return home, son will drop off phone and purse to patient, reports patient can uber home.
Original Note:
CM received voicemail from Nubia through [facility] ([phone]), placed call back regarding patient. CM left voicemail, will await to hear from [facility]. CM will continue to follow for all discharge planning needs.
Plan; likely home with script for outpatient PT/OT, [facility] referral
--- NOTE | 2024-04-29 11:01 | W.PN.UPDATE ---
Update Note
Progress Note Update
Patient seen at bedside, chart reviewed, discussed with staff. / Sofía reports doing well today. She is eager to DC home which is anticipated for today. She does plan to make all of her OP follow ups and is well aware of the findings of her
breast. She was just in the phone with her son. She tells me there had been some issues with him and her but did not elaborate. She is AAOx3. Offers no complaints at this time. Denies any AH/VH. No side effects to report from Zyprexa.
Impression/Recommendations: TME with intermittent hallucinations/agitation, seems to be resolved. Capacity appears intact. For now, could continue Zyprexa 5 mg HS and f/u with PCP or Psych to assess for continued need as OP.
--- NOTE | 2024-04-29 11:58 | W.DCSUMMARY ---
Addendum entered and electronically signed by Frances Garg MD, Resident 04/29/24 17:00:
Patient was also recommended to see a plastic hospital products assembler for a consideration for Holter monitor given her presentation with stroke symptoms. Please call and reach out plastic hospital products assembler Dr Johny Sears at [phone] in 1-2 weeks
She needs follow up with Breast Surgery/General surgery. Please call and reach out Dr Ирина Garner at [phone] 1-2 weeks
Original Note:
Documented by User: Frances Garg MD, Resident 04/29/24 12:43
Discharge Summary
Discharge Data
Date of Admission: 04/16/24
Date of Discharge: 04/29/24
-
Pending Results: No
Hospital Course
Disposition : Home ( The patient declined to go SNF or other facility -insisted to be go her home)
Primary care physician : Not-known
Principal Discharge diagnosis : Toxic Metabolic Encephalopathy, Hallucinations and agitations, Left Breast Mass , Hypokalemia, Primary Hypertension, Fascial Swelling
Chronic Discharge diagnosis : Primary Hypertension
Hospital Course : Her son Shon was called and discussed about the patient`s treatment and discharge plan.
#Toxic Metabolic Encephalopathyy: The patient was admitted to the hospital with stroke prealert on 04/16/24. She was assessed by Neurology and received TNK treatment. Following TNK treatment, patient became agitated and her mental status changed.
Her stat head CT did not show any acute abnormality. Her brain MRI was not suggestive of acute infarct. 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 LP
sample showed WBC 5 and elevated protein, per neurology was suspicious for the encephalitis. She was given 4 days of IVIG. CSF studies resulted negative but anti-NDMA is still pending. Neurology considered this mental status change can be
multifactorial and needed to be followed at outpatient setting. Per Neurology, the patient was recommended not to drive or not make any financial decisions.
She needs to continue DAPT for 3 weeks and Lipitor 40 mg nightly (with q10 coenzyme). She needs to have follow up visits at outpatient setting with cardiology follow-up (ILR), Neurology for neuropsychological evaluation and cEEG, rigging up worker and
Oncology/surgery for left breast mass.
#Hallucinations and agitations: Psychiatry followed the patient and her symptoms were uncontrolled with Zyprexa 5 mg. Psychiatry recommended to continue Zyprexa 5 mg HS and f/u with PCP or Psych to assess for continued need as OP.
#Left Breast Mass: Breast US showed: BI-RADS 4 breast cancer. During the hospitalization, the patient was recommend Biopsy and mammogram. She firmly refused and stated she is planning to have it at outpatient setting.
#Hypokalemia: Resolved with replacement.
# Fascial Swelling : The patient likely had an allergic reaction likely secondary to TNK or labetalol. It resolved.
#Primary Hypertension: The patient`s BP was highly elevated at admission and was given medications. it was gradually got under control. Patient`s BP was uncontrolled with lisinopril and carvedilol.
Important imaging findings :
04/16/[address]
IMPRESSION:
No evidence of acute intracranial abnormality.
Head and Neck CT 04/16/24
IMPRESSION: In the left lower neck at the junction with the upper chest, posterior to the left lobe of the thyroid gland and left lateral to the esophagus and trachea, there is a mixed air and soft tissue density, which almost certainly represents
an esophageal diverticulum. If further imaging evaluation is desired, consideration for esophagram.
No evidence for hemodynamically significant stenosis of the common carotid arteries, carotid bulbs, or internal carotid arteries bilaterally.
The anterior cerebral and middle cerebral arteries appear within normal limits.
Larger caliber right vertebral artery compared to the left. The left vertebral artery terminates as the posterior inferior cerebellar artery. No significant narrowing of the vertebral or basilar arteries.
Mild luminal irregularity of the posterior cerebral arteries with no evidence for occlusion or high-grade stenosis.
Percent stenosis is calculated using NASCET criteria.
04/17/24 Brain MRI
FINDINGS:
Parenchyma:
Limited by motion degradation. Reportedly, the patient was very combative.
As far as visualized, no convincing restricted diffusion is seen to suggest acute infarct.
Mild chronic microvascular white matter ischemic disease.
No evidence of mass, mass effect, midline shift, or extra-axial collection. No hydrocephalus. Mild atrophy.
The paranasal sinuses and mastoid air cells are clear.
Normal flow-voids impression structures at skull base.
IMPRESSION:
Limited by patient motion. As far as visualized, no convincing restricted diffusion to suggest acute infarct. Mild chronic microvascular white matter ischemic disease.
Breast US 04/22/24
FINDINGS:
In the retroareolar left breast at the 12:00 position there is a complex hypoechoic and echogenic mass measuring approximately 3.3 x 3.0 x 2.9 cm. Ultrasound imaging in the axilla demonstrates an enlarged lymph node with a cortex measuring 5.3 mm.
IMPRESSION: There is a complex mass in the retroareolar left breast. Ultrasound-guided core biopsy could be performed if the patient is amenable. Ultrasound-guided sampling of the abnormal lymph node is also possible.
Note: Mammogram was not performed at this time given patient's condition.
BI-RADS: IV - suspicious
Procedure findings :
PROCEDURE: XA Lumbar Puncture Tiffanyrama Hobson
INDICATION: 73-year-old with change in mental status.
STUDY REVIEWED: MR brain from 04/17/2024
TECHNIQUE:
The risks and benefits of the procedure were discussed with the patient and informed written consent obtained from the patient's son. The patient was brought into the angiography suite and positioned prone. The lower back was prepped and draped in
the usual sterile fashion. Maximum sterile barrier techniques were used including wearing cap and mask and sterile gown and sterile gloves and a large sterile sheet and hand hygiene and 2% chlorhexidine for cutaneous antisepsis.
An appropriate skin entry site to access the lumbar thecal sac was marked at the L4-5 level. 1% lidocaine was administered for local anesthesia. A 22 gauge Sprotte needle was advanced into the thecal sac with recovery of clear cerebrospinal fluid.
Approximately 12 mL were collected in 4 tubes. Samples were sent to laboratory for analysis. The needle was removed and a sterile dressing was applied.
There were no immediate complications.
Fluoro time: 0.7 minutes
Air Kerma: 36.51 mGy
Images acquired: 6
Automated dose reduction technique was utilized for this procedure.
IMPRESSION:
Technically successful fluoroscopically guided lumbar puncture.
Discharge Plan
-
Patient Disposition: Home (Routine Discharge)
Discharge Diagnosis/Procedures: Toxic Metabolic Encephalopathy
Hallucinations
Left Breast Cancer
Essential Hypertension
Facial Swelling due allergic reaction
Diet: Regular
Activity: As tolerated
Driving Restrictions: No driving
Bathing Restrictions: None
Referrals:
Lindsay Mcdaniel MD [Active] -
Vicki Love MD, Resident [Family Practice Resident Year1] - in one to two weeks
Ag Ross MD [Consulting Staff] - in one week
Adelfo Braswell MD [Active] - in two to three weeks
UNKNOWN - PT NOT,INTERVIEWE [Family Provider] -
Prescriptions:
New
lisinopril 20 mg Tablet
40 mg PO DAILY Qty: 90 0RF
olanzapine 5 mg Tablet
5 mg PO HS Qty: 60 0RF
atorvastatin 40 mg Tablet
40 mg PO QPM Qty: 60 0RF
carvedilol 12.5 mg Tablet
12.5 mg PO BID 30 Days Qty: 60 0RF
clopidogrel 75 mg Tablet
75 mg PO DAILY 19 Days Qty: 19 0RF
aspirin 81 mg capsule
81 mg PO DAILY 30 Days Qty: 30 0RF
Continued
naproxen sodium [Aleve] 220 mg Tablet
220 mg PO BIDPRN PRN (Reason: mildpain)
Discontinued
lisinopril 20 mg Tablet
20 mg PO DAILY
Discharge Orders:
Discharge Patient (As Directed); Ordered 04/29/24
Ordered By: Frances Garg
Discharge Date and Time
Print Language: MEXICAN

Documented by User: Lan Garcia MD 04/29/24 16:02
Discharge Summary
Discharge Data
Date of Admission: 04/16/24
Date of Discharge: 04/29/24
Discharge Plan
-
Patient Disposition: Home (Routine Discharge)
Discharge Diagnosis/Procedures: Toxic Metabolic Encephalopathy
Hallucinations
Left Breast Cancer
Essential Hypertension
Facial Swelling due allergic reaction
Diet: Regular
Activity: As tolerated
Driving Restrictions: No driving
Bathing Restrictions: None
Referrals:
Lindsay Mcdaniel MD [Active] -
Vicki Love MD, Resident [Family Practice Resident Year1] - in one to two weeks
Ag Ross MD [Consulting Staff] - in one week
Adelfo Braswell MD [Active] - in two to three weeks
UNKNOWN - PT NOT,INTERVIEWE [Family Provider] -
Prescriptions:
New
lisinopril 20 mg Tablet
40 mg PO DAILY Qty: 90 0RF
olanzapine 5 mg Tablet
5 mg PO HS Qty: 60 0RF
atorvastatin 40 mg Tablet
40 mg PO QPM Qty: 60 0RF
carvedilol 12.5 mg Tablet
12.5 mg PO BID 30 Days Qty: 60 0RF
clopidogrel 75 mg Tablet
75 mg PO DAILY 19 Days Qty: 19 0RF
aspirin 81 mg capsule
81 mg PO DAILY 30 Days Qty: 30 0RF
Continued
naproxen sodium [Aleve] 220 mg Tablet
220 mg PO BIDPRN PRN (Reason: mildpain)
Discontinued
lisinopril 20 mg Tablet
20 mg PO DAILY
Discharge Orders:
Discharge Patient (As Directed); Ordered 04/29/24
Ordered By: Frances Garg
Discharge Date and Time
Print Language: MEXICAN
[2024-04-29] MEDS: TUMS CHEWABLE TABLET 400 MG PO (12:07)
[2024-04-29 15:20] VITALS: BP 145/84
[2024-04-29] MEDS: LOVENOX 40 MG SC (17:52)
[2024-04-29] MEDS: LIPITOR 40 MG PO (17:52)
--- NOTE | 2024-04-29 20:14 | PTCARENOTE ---
Patient discharged to [facility] via [employer]. [facility]. Patient's son updated. ALl paperwork and belongings sent home with patient.
== END 2024-04-29 20:16 | disposition home or self-care (01) | DRG 61 ==
LOC: 4 WEST ACU 14:43
PROVIDERS: Hospitalist; Internal Medicine; Nurse Practitioner Family; Nurse Practitioner Primary Care; Radiology Diagnostic Radiology; Student in an Organized Health Care Education/Training Program; ADMITTING PHYSICIAN Family Medicine; ATTENDING PHYSICIAN Hospitalist; CONSULT PHYSICIAN Psychiatry & Neurology Clinical Neurophysiology; EMERGENCY PHYSICIAN Emergency Medicine; OTHER PHYSICIAN Internal Medicine Critical Care Medicine; OTHER PHYSICIAN Psychiatry & Neurology Psychiatry
PROC: 3E03317 Introduction of Other Thrombolytic into Peripheral Vein, Percutaneous Approach (ICD-10-PCS; 2024-04-16)
PROC: 30233S1 Transfusion of Nonautologous Globulin into Peripheral Vein, Percutaneous Approach (ICD-10-PCS; 2024-04-18)
PROC: 009U3ZX Drainage of Spinal Canal, Percutaneous Approach, Diagnostic (ICD-10-PCS; 2024-04-18)
PROC: B01B1ZZ Fluoroscopy of Spinal Cord using Low Osmolar Contrast (ICD-10-PCS; 2024-04-18)
DX: G45.9 Transient cerebral ischemic attack, unspecified (principal); G04.81 Other encephalitis and encephalomyelitis; G92.8 Other toxic encephalopathy; D68.32 Hemorrhagic disorder due to extrinsic circulating anticoagulants; Q39.6 Congenital diverticulum of esophagus; T88.6XXA Anaphylactic reaction due to adverse effect of correct drug or medicament properly administered, initial encounter; R47.01 Aphasia; E26.1 Secondary hyperaldosteronism; R13.10 Dysphagia, unspecified; E87.6 Hypokalemia; R29.810 Facial weakness; R47.81 Slurred speech; C50.912 Malignant neoplasm of unspecified site of left female breast; D89.9 Disorder involving the immune mechanism, unspecified; I10 Essential (primary) hypertension; E83.42 Hypomagnesemia; R59.9 Enlarged lymph nodes, unspecified; D64.9 Anemia, unspecified; R53.1 Weakness; E53.8 Deficiency of other specified B group vitamins; R44.1 Visual hallucinations; R45.1 Restlessness and agitation; R58 Hemorrhage, not elsewhere classified; T45.615A Adverse effect of thrombolytic drugs, initial encounter; Y92.239 Unspecified place in hospital as the place of occurrence of the external cause; R21 Rash and other nonspecific skin eruption; R06.89 Other abnormalities of breathing; R22.0 Localized swelling, mass and lump, head; Z66 Do not resuscitate; Z60.2 Problems related to living alone; Z80.0 Family history of malignant neoplasm of digestive organs; Z81.8 Family history of other mental and behavioral disorders
CPT/HCPCS: 62328; 70450; 70496; 70498; 70551; 71045; 76642; 80048; 80053; 80061; 80306; 80307; 81003; 81015; 82088; 82533; 82607; 82728; 82805; 82945; 82962; 83036; 83735; 84100; 84145; 84157; 84244; 84439; 84443; 85025; 85027; 85610; 85652; 85730; 86140; 86255; 86780; 87015; 87040; 87070; 87102; 87116; 87205; 87327; 87476; 87483; 89051; 92523; 92526; 92610; 93005; 93306; 95816; 96374; 96375; 97129; 97163; 97167; 97530; 97535; 99152; 99153; 99291; J1569; J2358; J3101; Q9967